=== PATIENT | female | born 1990 | race Caucasian/White ===

== ENCOUNTER → 2019-11-07 | Outpatient (CLI) | payer SELFPAY ==
[2019-11-12 15:25] LABS: HPV APTIMA, High Risk Negative (Negative); HPV Reflexed? YES, CHARGE PATIENT
== END | disposition home or self-care (01) ==
LOC: LABSPEC 14:15
PROVIDERS: Visit Provider Obstetrics & Gynecology
DX: Z12.4 Encounter for screening for malignant neoplasm of cervix (principal)
CPT/HCPCS: 87624; 88175; G0145

== ENCOUNTER → 2019-12-07 11:41 | Outpatient (CLI) | payer SELFPAY ==
--- NOTE | 2019-12-07 12:10 | RAD_ITS ---
STUDY: HYSTEROSALPINGOGRAM. REASON FOR EXAM: Female, 28 years old. Infertility FLUOROSCOPY TIME (if supplied): ( 34 seconds ) minutes/seconds TECHNIQUE: A hysterosalpingogram was performed by the welder fitter helper. Imaging was submitted. COMPARISON: None. FINDINGS: The uterus is unremarkable. Both fallopian tubes are patent with free spill. RAD/Salpingogram IMPRESSION: Both fallopian tubes are patent with free spill. Electronically Signed: Montez Fritz, at 13:22 EST , Service support ,
== END ==
PROVIDERS: Referring Provider Obstetrics & Gynecology; Visit Provider Obstetrics & Gynecology
DX: N97.9 Female infertility, unspecified (principal)
CPT/HCPCS: 58340; 74740; Q9967

== ENCOUNTER → 2019-12-25 09:45 | Outpatient (CLI) | payer SELFPAY ==
[2019-12-25 10:36] LABS: Bedside Glucose 88 mg/dL (70-110)
[2019-12-25 11:29] LABS: Glucose 75GTT - Fasting 92 mg/dL (70-99)
[2019-12-25 11:31] LABS: Follicle Stimulating Hormone 1.1 mIU/mL; Prolactin 18.3 ng/mL
[2019-12-25 11:48] LABS: Glucose 75GTT - 30 minutes 106 mg/dL (100-160)
[2019-12-25 12:02] LABS: Insulin 75GTT - 30 MIN 77.4 mU/L (Not Estab.)
[2019-12-25 13:26] LABS: Glucose 75GTT - 120 minutes 103 mg/dL (70-140)
[2019-12-25 13:27] LABS: Glucose 75GTT - 60 minutes 100 mg/dL (100-160)
[2019-12-25 13:37] LABS: Insulin 75GTT - 60 min 107.8 mU/L (Not Estab)
[2019-12-25 13:37] LABS: Insulin 75GTT - 120 min 69.1 mU/L (Not Estab.)
[2019-12-29 20:07] LABS: DHEA Sulfate 249.7 ug/dL (84.8-378.0)
[2019-12-31 11:48] LABS: Anti-Mullerian Hormone,Serum 3.92 ng/mL (.); Sex Hormone-binding Globulin 54.4 nmol/L (24.6-122.0)
== END ==
PROVIDERS: PCP Obstetrics & Gynecology; Referring Provider Obstetrics & Gynecology; Visit Provider Obstetrics & Gynecology
DX: N97.9 Female infertility, unspecified (principal)
CPT/HCPCS: 36415; 82627; 82951; 82952; 82962; 83001; 83516; 83525; 84146; 84270; 84403; 82626

== ENCOUNTER → 2020-01-01 10:39 | Outpatient (CLI) | payer SELFPAY ==
[2020-01-01 14:17] LABS: Vitamin D,25 Hydroxy 22.2 ng/mL (29.95-100.01)
[2020-01-01 14:18] LABS: Follicle Stimulating Hormone 5.9 mIU/mL; Prolactin 10.2 ng/mL
[2020-01-02 12:27] LABS: Sex Hormone-binding Globulin 49.2 nmol/L (24.6-122.0)
== END ==
PROVIDERS: PCP Obstetrics & Gynecology; Referring Provider Obstetrics & Gynecology; Visit Provider Obstetrics & Gynecology
DX: E28.9 Ovarian dysfunction, unspecified (principal); N97.9 Female infertility, unspecified
CPT/HCPCS: 82306; 82627; 83001; 84146; 84270; 84403; 82626

== ENCOUNTER → 2020-05-13 10:26 | Outpatient (CLI) | payer SELFPAY ==
[2020-05-13 12:51] LABS: Progesterone Level 3.79 ng/mL (See Comment)
== END ==
PROVIDERS: PCP Obstetrics & Gynecology; Visit Provider Obstetrics & Gynecology
DX: N97.0 Female infertility associated with anovulation (principal)
CPT/HCPCS: 36415; 84144

== ENCOUNTER → 2020-06-10 09:38 | Outpatient (CLI) | payer SELFPAY ==
[2020-06-10 10:36] LABS: Progesterone Level 48.11 ng/mL (See Comment)
== END ==
PROVIDERS: PCP Obstetrics & Gynecology; Visit Provider Obstetrics & Gynecology
DX: N97.0 Female infertility associated with anovulation (principal)
CPT/HCPCS: 36415; 84144

== ENCOUNTER → 2020-07-11 10:10 | Outpatient (CLI) | payer SELFPAY ==
[2020-07-11 11:21] LABS: Progesterone Level 46.06 ng/mL (See Comment)
== END ==
PROVIDERS: PCP Obstetrics & Gynecology; Visit Provider Obstetrics & Gynecology
DX: N97.0 Female infertility associated with anovulation (principal)
CPT/HCPCS: 36415; 84144

== ENCOUNTER → 2020-08-11 10:19 | Outpatient (CLI) | payer SELFPAY ==
[2020-08-11 16:17] LABS: Progesterone Level 54.31 ng/mL (See Comment)
== END ==
PROVIDERS: PCP Obstetrics & Gynecology; Visit Provider Obstetrics & Gynecology
DX: N97.0 Female infertility associated with anovulation (principal)
CPT/HCPCS: 36415; 84144

== ENCOUNTER → 2020-09-10 09:54 | Outpatient (CLI) | payer SELFPAY | PROVIDERS: PCP Obstetrics & Gynecology; Visit Provider Obstetrics & Gynecology | DX: N97.0 Female infertility associated with anovulation (principal) | CPT/HCPCS: 36415; 84144 ==

== ENCOUNTER → 2020-10-09 08:48 | Outpatient (CLI) | payer SELFPAY ==
[2020-10-09 10:58] LABS: Progesterone Level 52.61 ng/mL (See Comment)
== END ==
PROVIDERS: PCP Obstetrics & Gynecology; Visit Provider Obstetrics & Gynecology
DX: N97.0 Female infertility associated with anovulation (principal)
CPT/HCPCS: 36415; 84144

== ENCOUNTER → 2020-11-06 10:43 | Outpatient (CLI) | payer SELFPAY | PROVIDERS: PCP Obstetrics & Gynecology; Visit Provider Obstetrics & Gynecology | DX: N97.0 Female infertility associated with anovulation (principal) | CPT/HCPCS: 36415; 84144 ==

== ENCOUNTER → 2020-12-03 12:10 | Outpatient (CLI) | payer SELFPAY ==
[2020-12-03 14:23] LABS: Free T3 2.5 pg/mL (2.18-3.98); T4 Free Direct 1.22 ng/dL (0.76-1.46); Thyroid Stim Hormone (TSH) 1.36 uIU/mL (0.358-3.74)
== END ==
PROVIDERS: PCP Obstetrics & Gynecology; Visit Provider Obstetrics & Gynecology
DX: E03.9 Hypothyroidism, unspecified (principal)
CPT/HCPCS: 36415; 84439; 84443; 84481

== ENCOUNTER → 2020-12-05 09:44 | Outpatient (CLI) | payer SELFPAY ==
[2020-12-05 12:27] LABS: Progesterone Level 42.79 ng/mL (See Comment)
== END ==
PROVIDERS: PCP Obstetrics & Gynecology; Visit Provider Obstetrics & Gynecology
DX: N97.0 Female infertility associated with anovulation (principal)
CPT/HCPCS: 36415; 84144

== ENCOUNTER → 2021-01-05 11:11 | Outpatient (CLI) | payer SELFPAY ==
[2021-01-05 12:09] LABS: Progesterone Level 14.76 ng/mL (See Comment)
== END ==
PROVIDERS: PCP Obstetrics & Gynecology; Visit Provider Obstetrics & Gynecology
DX: Z31.81 Encounter for male factor infertility in female patient (principal); Z31.41 Encounter for fertility testing
CPT/HCPCS: 36415; 84144

== ENCOUNTER → 2021-04-17 09:05 | Outpatient (CLI) | payer SELFPAY ==
[2021-04-17 10:27] LABS: Glucose 75GTT - 30 minutes 138 mg/dL (100-160)
[2021-04-17 10:37] LABS: Glucose 75GTT - Fasting 100 mg/dL (70-99)
[2021-04-17 11:47] LABS: Glucose 75GTT - 60 minutes 119 mg/dL (100-160)
[2021-04-17 12:42] LABS: Glucose 75GTT - 120 minutes 82 mg/dL (70-140)
== END ==
PROVIDERS: Referring Provider Obstetrics & Gynecology Reproductive Endocrinology; Visit Provider Obstetrics & Gynecology Reproductive Endocrinology
DX: E16.8 Other specified disorders of pancreatic internal secretion (principal)
CPT/HCPCS: 36415; 82951; 82952; 83525

== ENCOUNTER 2022-02-05 11:37 | Outpatient (CLI) | payer SELFPAY ==
[2022-02-05 12:23] LABS: Absolute Lymphocyte Count 1.88 X10^3/uL (0.83-4.51); Absolute Neutrophil Count 6.9 X10^3/uL (2.0-7.7); Basophil# 0.06 X10^3/uL; Basophil% 0.6 % (0-1); Eosinophil# 0.04 X10^3/uL; Eosinophils% 0.4 % (0-5); Hematocrit 37.4 % (37-47); Lymphocyte # 1.88 X10^3/ul (0.83-4.51); Lymphocyte % 19.3 % (19-41); Mean Corp Hgb Conc 34.8 g/dL (32-36); Mean Corpuscular Hgb 29.5 pg (27.0-32.0); Mean Corpuscular Volume 84.8 fL (81-99); Mean Platelet Vol. 9.4 fl (6.2-12.0); Monocyte# 0.83 X10^3/uL; Monocyte% 8.5 % (0-10); NRBC Flagged by Analyzer 0 % (0-5); Neutrophil # 6.91 X10^3/uL (2.7-7.7); Neutrophil % 70.8 % (47-70); Platelet Count 421 K/mm3 (150-450); RBC Distribution Width CV 12.2 % (11.6-14.6); RBC Distribution Width SD 37.3 fl (35.1-43.9); Red Blood Count 4.41 M/mm3 (4.2-5.4); White Blood Count 9.8 K/mm3 (4.4-11.0)
[2022-02-05 12:26] LABS: Color, Urine Yellow (Yellow); Glucose, Dipstick Normal (Normal); Ketone-Dipstick Negative (Negative); Leukocyte Esterase-Dipstick 25 /ul (Negative); Nitrite-Dipstick Negative (Negative); Occult Blood-Urine Negative /ul (Negative); Protein-Dipstick Negative (Negative); Specific Gravity, Urine 1.005 (1.002-1.030); Urine Bilirubin Dipstick Negative (Negative); Urine Clarity Clear (Clear); Urine Urobilinogen Normal (Normal)
[2022-02-05 13:09] LABS: Thyroid Stim Hormone (TSH) 1.13 uIU/mL (0.358-3.74)
[2022-02-05 13:36] LABS: HIV - WCH Non-Reactive (Nonreactive); Hepatitis B Surface Antigen Non-Reactive (Nonreactive); Hepatitis C Antibody Non-Reactive (Nonreactive); Rubella IgG Reactive (Nonreactive); Syphilis Antibodies Non-reactive
[2022-02-08 05:07] LABS: Chlamydia By Nucleic Acid AMP Negative (Negative)
[2022-02-08 13:31] LABS: Gonococcus By Nucleic Acid AMP Negative (Negative)
== END 2022-02-05 23:59 | disposition home or self-care (01) ==
LOC: WOBLAB 11:38
PROVIDERS: Visit Provider Obstetrics & Gynecology
DX: Z34.81 Encounter for supervision of other normal pregnancy, first trimester (principal); Z11.3 Encounter for screening for infections with a predominantly sexual mode of transmission
CPT/HCPCS: 36415; 81002; 84443; 85025; 86703; 86762; 86780; 86803; 87086; 87088; 87340; 87491; 87591

== ENCOUNTER 2022-06-17 10:31 | Outpatient (CLI) | payer SELFPAY ==
[2022-06-17 11:27] LABS: Hematocrit 34.6 % (37-47); Hemoglobin 12.3 g/dL (12.0-15.0); Mean Corp Hgb Conc 35.5 g/dL (32-36); Mean Corpuscular Hgb 30.8 pg (27.0-32.0); Mean Corpuscular Volume 86.5 fL (81-99); Mean Platelet Vol. 9.8 fl (6.2-12.0); Platelet Count 337 K/mm3 (150-450); RBC Distribution Width CV 13.2 % (11.6-14.6); RBC Distribution Width SD 41.5 fl (35.1-43.9); White Blood Count 10.5 K/mm3 (4.4-11.0)
[2022-06-17 11:32] LABS: Glucose Challenge Gest 1H 50g 108 mg/dL (70-140)
== END 2022-06-17 23:59 | disposition home or self-care (01) ==
LOC: WOBLAB 10:35
PROVIDERS: Visit Provider Obstetrics & Gynecology
DX: Z34.83 Encounter for supervision of other normal pregnancy, third trimester (principal)
CPT/HCPCS: 36415; 82950; 85027; 86850

== ENCOUNTER → 2022-08-10 | Outpatient (CLI) | payer SELFPAY | END | disposition home or self-care (01) | LOC: LABSPEC 11:21 | PROVIDERS: Visit Provider Obstetrics & Gynecology | DX: Z36.85 Encounter for antenatal screening for Streptococcus B (principal) | CPT/HCPCS: 87077; 87081; 87186 ==

== ENCOUNTER 2022-09-16 06:50 | Inpatient (IN) | payer SELFPAY ==
[2022-09-16] VITALS (24 sets, daily range): BP systolic 105–150; BP diastolic 54–86; PULSE 70–107; TEMP 36.3–37.4; O2SAT 92–99; BMI 36.5
--- NOTE | 2022-09-16 07:24 | PCM.HP.BLA ---
History and Physical Date of Admission: 09/16/22 Chief complaint: Induction of labor at term History present illness: 31-year-old at 41 weeks and 2 days with JUAN 09/07/2022 arrives for induction of labor at term. Denies headache, visual changes, chest pain, shortness of breath, nausea vomit, right upper quadrant pain. Patient states good movement Obstetric history: G1: Current Past medical history: None Past surgical history: None Medications: None Allergies: Penicillin Social history: Denies smoking, alcohol use, drug use Family history: Denies history DVT or PE Review of systems: Besides above pertinent positives a full review of systems was performed and found to be negative Physical exam: Vitals: Blood pressure 110/86 pulse 107 General: Normal-appearing no acute distress HEENT: Normocephalic/atraumatic no cervical lymphadenopathy Cardiac/respiratory: No accessory muscles, nonlabored breathing Abdomen: Soft, nontender, gravid Extremities: No peripheral edema normal peripheral pulses Psych: Normal affect, demeanor nonpressured speech Labs: Pending Assessment plan: 31-year-old G1, P0 at 41 weeks and 2 days for induction of labor at term Admit labor and delivery CEFM GBS positive for clindamycin Cytotec induction Routine orders Anesthesia to see
[2022-09-16] MEDS: miSOPROStol 25 MCG TABLET VAGINAL ×3 (08:04→16:33)
[2022-09-16] MEDS: Lactated Ringers 1,000 ML 50 ML IV (08:10)
[2022-09-16 08:49] LABS: Absolute Lymphocyte Count 1.94 X10^3/uL (0.83-4.51); Absolute Neutrophil Count 9.5 X10^3/uL (2.0-7.7); Basophil# 0.06 X10^3/uL; Basophil% 0.5 % (0-1); Eosinophil# 0.07 X10^3/uL; Eosinophils% 0.6 % (0-5); Hematocrit 36.5 % (37-47); Hemoglobin 13.3 g/dL (12.0-15.0); Lymphocyte # 1.94 X10^3/ul (0.83-4.51); Lymphocyte % 15.4 % (19-41); Mean Corp Hgb Conc 36.4 g/dL (32-36); Mean Corpuscular Hgb 31.1 pg (27.0-32.0); Mean Corpuscular Volume 85.3 fL (81-99); Mean Platelet Vol. 10.7 fl (6.2-12.0); Monocyte# 0.96 X10^3/uL; Monocyte% 7.6 % (0-10); NRBC Flagged by Analyzer 0 % (0-5); Neutrophil # 9.45 X10^3/uL (2.7-7.7); Platelet Count 298 K/mm3 (150-450); RBC Distribution Width CV 13.3 % (11.6-14.6); RBC Distribution Width SD 41.6 fl (35.1-43.9); Red Blood Count 4.28 M/mm3 (4.2-5.4); White Blood Count 12.6 K/mm3 (4.4-11.0)
[2022-09-16] MEDS: Clindamycin 900 MG/50 ML BAG 75 MG IV ×2 (09:41→17:48)
[2022-09-16] MEDS: LACTATED RINGERS 500 ML 999 ML IV (18:25)
[2022-09-16] MEDS: Oxytocin 10 UNITS/ML Vial IM (21:43)
--- NOTE | 2022-09-16 22:07 | OP.PCM_ITS ---
Vaginal Delivery Findings Description of Procedure: Normal spontaneous vaginal delivery of a viable female infant, vertex HANNA. Head and shoulders delivered with ease. Cord cut and clamped. Baby handed off to patient. Placenta delivered via cord traction and fundal massage. Second- degree midline perineal laceration noted and repaired in typical fashion. 20 cc of 1% lidocaine used. 10 units of IM Pitocin given. EBL 300 cc Apgars 8/9
[2022-09-17] VITALS (7 sets, daily range): BP systolic 102–135; BP diastolic 62–72; PULSE 80–101; RESP 16–18; TEMP 36.3–36.9; O2SAT 96
[2022-09-17] MEDS: Acetaminophen 500 MG Tablet 1000 MG PO ×2 (00:32→10:15)
--- NOTE | 2022-09-17 03:11 | NURSING ---
late entry due to pt care and unit acuity: 1000mL bag LR hung at 2002, infusion complete at 213
--- NOTE | 2022-09-17 07:22 | PN.OBGYN_ITS ---
Subjective Subjective day 1. Feeling well. Lochia minimal. Working on breast-feeding. Objective Data Objective Data Vital Signs: Vital Signs Temp Pulse Resp BP Pulse Ox O2 Del Method 97.5 F L 95 18 102/68 98 Room Air 09/17/22 04:01 09/17/22 04:01 09/17/22 04:01 09/17/22 04:01 09/16/22 22:06 09/17/22 04:01 Oxygen Delivery Method Room Air Weight: 84.822 kg Body Mass Index (BMI) 36.5 Intake & Output: Intake and Output for Last 24 Hours 09/15/22 09/16/22 09/17/22 23:59 23:59 23:59 Intake Total 800 / 800 Output Total 200 / 200 800 / 800 Balance 600 / 600 -800 / -800 Lab / Micro Data Result Diagrams: 09/16/22 08:20 Labs: Laboratory Results - last 24 hr 09/16/22 08:20: WBC 12.6 H, RBC 4.28, Hgb 13.3, Hct 36.5 L, MCV 85.3, MCH 31.1, MCHC 36.4 H, RDW Std Deviation 41.6, RDW Coeff of Roque 13.3, Plt Count 298, MPV 10.7, Immature Gran % (Auto) 0.900, Neut % (Auto) 75.0 H, Lymph % (Auto) 15.4 L, [place] % (Auto) 7.6, Eos % (Auto) 0.6, Baso % (Auto) 0.5, Absolute Neuts (auto) 9.5 H, Absolute Lymphs (auto) 1.94, Nucleated RBC % 0 09/16/22 08:20: Blood Type A NEGATIVE, Antibody Screen INSIDE SALES ASSISTANT 09/16/22 08:20: Blood Type Cancelled, ABO/Rh Cancelled, A1 Subgroup Cancelled, A1 Antigen Typing Cancelled, Rho(D) Tech Interpret Cancelled, Antibody Screen NEGATIVE Physical Exam Const alert, oriented x3 and no apparent distress HEENT normocephalic Head and Scalp: atraumatic Neck full ROM Resp normal respiratory effort Cardio regular rate GI normal to inspection, nondistended, normoactive bowel sounds GI Narrative: Uterus 2 cm below umbilicus Back/Spine normal ROM Extremity normal to inspection Extremity Narrative: Minimal pedal edema Neuro no focal motor deficits and no sensory deficits noted Psych mental status grossly normal and affect normal Assessment & Plan (1) Vaginal delivery: PLAN: day 1 status post . Breast-feeding. Home tomorrow.
[2022-09-18 01:44] VITALS: BP 128/66; PULSE 95; RESP 18; TEMP 36.6; O2SAT 95
--- NOTE | 2022-09-18 07:36 | PCM.DC.BLA ---
Discharge Summary Date of Admission: 09/16/22 Date of Discharge: 09/18/22 Summary: Patient arrived on 09/16/2022 for induction of labor at 41 weeks. Subsequently delivered vaginally on 09/16/2022. Routine recovery. Discharge home on 09/18/2022 Meaningful Use Info Meaningful Use Diagnoses (Choose all that apply): None applicable Discharge Plan Admission Admit Date/Time: 09/16/22 06:50 Primary Reason for Your Visit: Induction of labor Attending Provider: Rohan Mcdonald Primary Care Provider: Care Physician,Marlen Primary Instructions Additional Instructions / Restrictions: Regular diet. Weightbearing as tolerated. Okay to shower. No intercourse for 4 to 6 weeks. Call if chest pain, shortness of breath, fevers or chills. Follow-up 4 to 6 weeks Discharge Orders/Prescriptions Prescriptions: No Action 1 mg Tablet 1 tab PO DAILY Referrals / Follow Up: Care Physician,No Primary [Primary Care Provider] - Disposition Disposition (needs filled in before D/C Order can be placed): Home, Self Care
--- NOTE | 2022-09-18 07:37 | PCM.PN.OB ---
Subjective Subjective No overnight complaints Objective Data Objective Data Vital Signs: Vital Signs Temp Pulse Resp BP Pulse Ox O2 Del Method 97.8 F 95 18 128/66 H 95 Room Air 09/18/22 01:44 09/18/22 01:44 09/18/22 01:44 09/18/22 01:44 09/18/22 01:44 09/18/22 01:44 Oxygen Delivery Method Room Air Weight: 187 lb Body Mass Index (BMI) 36.5 Intake & Output: Intake and Output for Last 24 Hours 09/16/22 09/17/22 09/18/22 23:59 23:59 23:59 Intake Total 800 / 800 Output Total 200 / 200 800 / 800 Balance 600 / 600 -800 / -800 Lab / Micro Data Result Diagrams: 09/16/22 08:20 Physical Exam Const alert, oriented x3, no apparent distress, average body habitus, healthy appearing and well nourished HEENT normocephalic and moist oral mucous membranes Eyes PERRL Neck full ROM Resp normal respiratory effort, no retractions and no use of accessory muscles Extremity normal to inspection, full ROM and no clubbing, cyanosis or edema Neuro moves all extremities and no focal motor deficits Psych mental status grossly normal, affect normal, speech normal and activity/motor behavior normal Assessment & Plan (1) Vaginal delivery: PLAN: day 2. Breast-feeding. Pain well controlled. Okay to discharge home today
[2022-09-18 08:58] VITALS: BP 114/73; PULSE 93; RESP 18; TEMP 36.6; O2SAT 99
[2022-09-18 14:00] VITALS: BP 116/71; PULSE 86; RESP 16; TEMP 36.6; O2SAT 100
== END 2022-09-18 17:00 | disposition home or self-care (01) | DRG 807 ==
PROVIDERS: Admitting Provider Obstetrics & Gynecology; Visit Provider Obstetrics & Gynecology
DX: O48.0 Post-term pregnancy (principal); Z37.0 Single live birth; O70.1 Second degree perineal laceration during delivery; O99.824 Streptococcus B carrier state complicating childbirth; Z3A.41 41 weeks gestation of pregnancy
CPT/HCPCS: 59025; 59050; 85025; 86850; 86900; 86901; 99218; J7120; G0378

== ENCOUNTER → 2024-10-03 | Outpatient (CLI) | payer OTHER, SELFPAY ==
[2024-10-03 12:21] LABS: Absolute Lymphocyte Count 1.93 X10^3/uL (0.83-4.51); Basophil# 0.08 X10^3/uL; Basophil% 0.7 % (0-1); Eosinophil# 0.11 X10^3/uL; Eosinophils% 0.9 % (0-5); Hematocrit 38.8 % (37-47); Hemoglobin 12.9 g/dL (12.0-15.0); Lymphocyte # 1.93 X10^3/ul (0.83-4.51); Lymphocyte % 16.3 % (19-41); Mean Corp Hgb Conc 33.2 g/dL (32-36); Mean Corpuscular Hgb 28.5 pg (27.0-32.0); Mean Corpuscular Volume 85.7 fL (81-99); Mean Platelet Vol. 9.2 fl (6.2-12.0); Monocyte# 0.71 X10^3/uL; NRBC Flagged by Analyzer 0 % (0-5); Neutrophil # 8.97 X10^3/uL (2.7-7.7); Neutrophil % 75.7 % (47-70); Platelet Count 442 K/mm3 (150-450); RBC Distribution Width CV 12.5 % (11.6-14.6); RBC Distribution Width SD 38.8 fl (35.1-43.9); Red Blood Count 4.53 M/mm3 (4.2-5.4); White Blood Count 11.9 K/mm3 (4.4-11.0)
[2024-10-03 13:45] LABS: HIV - WCH Non-Reactive (Nonreactive); Hepatitis B Surface Antigen Non-Reactive (Nonreactive); Hepatitis C Antibody Non-Reactive (Nonreactive); Rubella IgG Reactive (Nonreactive); Syphilis Antibodies Non-reactive
[2024-10-06 07:08] LABS: Chlamydia By Nucleic Acid AMP Negative (Negative); Gonococcus By Nucleic Acid AMP Negative (Negative)
== END | disposition home or self-care (01) ==
LOC: BWCLAB 11:57
PROVIDERS: Referring Provider Advanced Practice Midwife; Visit Provider Advanced Practice Midwife
DX: O99.210 Obesity complicating pregnancy, unspecified trimester (principal)
CPT/HCPCS: 36415; 83036; 85025; 86703; 86762; 86780; 86803; 86850; 86900; 86901; 87077; 87086; 87088; 87186; 87340; 87491; 87591

== ENCOUNTER 2024-11-29 10:22 | Outpatient (CLI) | payer OTHER, SELFPAY | END 2024-11-29 23:59 | disposition home or self-care (01) | LOC: BWCLAB 10:23 | PROVIDERS: Referring Provider Nurse Practitioner Women's Health; Visit Provider Nurse Practitioner Women's Health | DX: Z34.90 Encounter for supervision of normal pregnancy, unspecified, unspecified trimester (principal) | CPT/HCPCS: 36415; 86850; 86900; 86901 ==

== ENCOUNTER → 2025-02-21 | Outpatient (CLI) | payer OTHER, SELFPAY ==
[2025-02-21 17:36] LABS: Absolute Lymphocyte Count 1.93 X10^3/uL (0.83-4.51); Absolute Neutrophil Count 9.3 X10^3/uL (2.0-7.7); Basophil# 0.05 X10^3/uL; Basophil% 0.4 % (0-1); Eosinophils% 0.8 % (0-5); Hematocrit 34.1 % (37-47); Hemoglobin 11.6 g/dL (12.0-15.0); Lymphocyte # 1.93 X10^3/ul (0.83-4.51); Lymphocyte % 15.8 % (19-41); Mean Corpuscular Hgb 29.1 pg (27.0-32.0); Mean Corpuscular Volume 85.7 fL (81-99); Mean Platelet Vol. 9.6 fl (6.2-12.0); Monocyte# 0.72 X10^3/uL; Monocyte% 5.9 % (0-10); NRBC Flagged by Analyzer 0 % (0-5); Neutrophil # 9.27 X10^3/uL (2.7-7.7); Neutrophil % 76.2 % (47-70); Platelet Count 365 K/mm3 (150-450); RBC Distribution Width CV 13.5 % (11.6-14.6); RBC Distribution Width SD 41.8 fl (35.1-43.9); Red Blood Count 3.98 M/mm3 (4.2-5.4); White Blood Count 12.2 K/mm3 (4.4-11.0)
[2025-02-21 18:14] LABS: Glucose Challenge Gest 1H 50g 124 mg/dL (70-140); HIV Nonreactive (Nonreactive); Syphilis Antibodies Nonreactive (Nonreactive)
== END | disposition home or self-care (01) ==
LOC: BWCLAB 14:42
PROVIDERS: Obstetrics & Gynecology; Referring Provider Advanced Practice Midwife; Visit Provider Advanced Practice Midwife
DX: O09.92 Supervision of high risk pregnancy, unspecified, second trimester (principal); Z13.1 Encounter for screening for diabetes mellitus; Z3A.00 Weeks of gestation of pregnancy not specified
CPT/HCPCS: 36415; 82950; 85025; 86703; 86780; 86850; 86900; 86901

== ENCOUNTER 2025-03-29 11:57 | Emergency (ER) | payer OTHER, SELFPAY ==
[2025-03-29 11:58] VITALS: BP 98/64; PULSE 94; RESP 19; TEMP 36.6; O2SAT 99
[2025-03-29 12:00] VITALS: BMI 36.7
--- NOTE | 2025-03-29 12:09 | RAD_ITS ---
PROCEDURE: ANKLE MIN 3 VIEWS 03/29/2025 REASON FOR EXAM: PAIN. Injury. TECHNIQUE: 3 views of the left ankle COMPARISON: None. RAD/Ankle min 3 Views IMPRESSION: On the lateral view, a moderate inferior calcaneal spur is seen. Normal contour of the Achilles tendon is noted. No ankle joint effusion is identified. Satisfactory osseous alignment is seen throughout. No acute fracture or dislocation is seen. If clinical concern persists, short-term follow-up imaging may be obtained to r ule out a currently occult fracture. Reading Location: [place] [id number]
--- NOTE | 2025-03-29 12:57 | EDS_ITS ---
HPI <LEANA Nicholas - Last Filed: 03/29/25 13:48> History of Present Illness Chief Complaint: Lower Extremity Injury Narrative Narrative: Patient presenting today with pain to her left ankle and foot following an injury this afternoon. She was going down the stairs when she missed stepped and twisted her left ankle. She is currently 7 months , she is G2, P1, she denies any injury to her abdomen, abdominal pain, or vaginal bleeding. She is having a difficult time bearing weight onto her LLE due to the pain. She has not yet taken anything for pain. PFSH <LEANA Nicholas - Last Filed: 03/29/25 13:48> PFSH Home Medications ?Medication ?Instructions ?Recorded ?Last Taken ?Type dajizgyh-ldy-Ra-FA 1 mg 1 tab PO DAILY pregna ncy 09/16/22 Unknown History tablet cholecalciferol (vitamin D3) 25 25 mcg PO QDAY 4 Unknown History mcg (1,000 unit) capsule Allergy/AdvReac Type Severity Reaction Status Date / Time Penicillins Allergy Vomiting Verified 03/29/25 11:57 Family History Mother Endometriosis Lupus Social History adopted: No household members: spouse and children number of children: 1 current occupation: [employer] current occupational exposures/hazards: No pets and animals: Yes history of recent travel: No sexually active: Yes Smoking Status: Never smoker alcohol intake: never substance use type: does not use well-balanced diet: daily or most days caffeine: Yes Type: carbonated beverages Number of servings: 1 eating out: rarely or never during the past year weight has: increased > 10 lbs what type of physical activity do you participate in: walking frequency: 1-2 times per week duration: < 15 minutes/day seatbelt use: always do you feel safe at home: Yes additional social history: : [employer] ROS <LEANA Nicholas - Last Filed: 03/29/25 13:48> ROS ED Gastrointestinal Gastrointestinal: Denies abdominal pain Musculoskeletal Musculoskeletal: Reports arthralgias Integumentary Denies Abrasions Neurologic Neurologic: Denies paresthesias EXAM <LEANA Nicholas - Last Filed: 03/29/25 13:48> Physical Exam Const Vital Signs: 03/29/25 11:58 Temperature 98 F Temperature Source Oral Pulse Rate 94 Respiratory Rate 19 H Blood Pressure 98/64 Blood Pressure Mean 75 Pulse Ox 99 Oxygen Delivery Method Room Air Positive well nourished, well developed and no apparent distress General Appearance ED: well developed HEENT Reports normocephalic and head/scalp atraumatic Mouth ED: Yes moist mucous membranes normal Eyes PERRL and EOMs intact bilaterally Neck full ROM and supple Chest Wall inspection of chest normal Resp normal respiratory effort and clear to auscultation bilaterally Cardio regular rate and regular rhythm Back/Spine normal ROM and normal to inspection Extremity normal to inspection and full ROM Extremity Narrative: pain to palpation to the left lateral malleolus, pain to the ATFL, minimal pain across the dorsal aspect of the midfoot. No proximal fibular tenderness. No tenderness to the head or base of the fifth metatarsal. Left DP pulse 2+, good cap refill, sensation intact. No bruising, she has mild swelling to the left ankle. Neuro moves all extremities, no focal motor deficits and no sensory deficits noted Sensorium / Orientation: awake and alert Psych mental status grossly normal and thought process normal Skin no rashes or lesions noted and no wounds <Dr. Hector Abrams, - Last Filed: 03/29/25 13:23> Physical Exam Const Vital Signs: 03/29/25 11:58 Temperature 98 F Temperature Source Oral Pulse Rate 94 Respiratory Rate 19 H Blood Pressure 98/64 Blood Pressure Mean 75 Pulse Ox 99 Oxygen Delivery Method Room Air MDM <LEANA Nicholas - Last Filed: 03/29/25 13:48> [facility] Narrative Medical decision making narrative: Patient presenting today with pain to her left ankle after tripping down a few steps this afternoon. No other injury occurred. She is currently 7 months but denies injuring her abdomen, she has no abdominal pain. No significant edema to the left ankle, she has pain to the left lateral malleolus, she reports mild pain across the dorsum of her foot, ankle x-ray obtained and is negative for fracture. Metatarsal view on x-ray does not show fracture. I did offer analgesia and she declined. Radiography X-Ray: Read by ED Physician Diagnostic Testing: Clinical Impression(s) from Imaging Studies Ankle X-Ray 03/29/25 12:09 IMPRESSION: On the lateral view, a moderate inferior calcaneal spur is seen. Normal contour of the Achilles tendon is noted. No ankle joint effusion is identified. Satisfactory osseous alignment is seen throughout. No acute fracture or dislocation is seen. If clinical concern persists, short-term follow-up imaging may be obtained to rule out a currently occult fracture. Reading Location: [facility] <Dr. Hector Abrams, DO - Last Filed: 03/29/25 13:23> MDM Radiography Diagnostic Testing: Clinical Impression(s) from Imaging Studies Ankle X-Ray 03/29/25 12:09 IMPRESSION: On the lateral view, a moderate inferior calcaneal spur is seen. Normal contour of the Achilles tendon is noted. No ankle joint effusion is identified. Satisfactory osseous alignment is seen throughout. No acute fracture or dislocation is seen. If clinical concern persists, short-term follow-up imaging may be obtained to rule out a currently occult fracture. [facility] Treatment and Re-Evaluation Narrative: I have personally performed a face to face assessment of the patient and have reviewed the MIA Note. I performed a substantive portion of the visit including all aspects of the following. My bonds findings include: History: Patient presents with left ankle injury that occurred approximately 2 hours prior to arrival. Patient states she missed a step and fell down 3-4 stairs. Patient denies any head injury or loss of consciousness. Patient denies any abdominal injury. Patient states her pain is aching. Patient states it is mainly over the lateral aspect of the left ankle. Patient denies any paresthesias or weakness. Patient denies any other injuries. Exam: Vital signs are stable. Patient is afebrile. Patient is in no acute distress. Musculoskeletal exam reveals tenderness over the lateral aspect of the left ankle. There is some mild edema. There is no ecchymosis. There is no tenderness over the proximal fibula. There is no tenderness over the fifth metatarsal. There is no tenderness over the medial malleolus. Range of motion was slightly limited in all motions of the left ankle secondary to pain. Pedal pulses are equal bilaterally. Sensation was intact to light touch in all digits. Capillary refill was less than 2 seconds in all digits. Strength is 5/5 bilaterally in the lower extremities. Medical Decision Making: Differential diagnose includes sprain, fracture, and contusion. X-rays of the left ankle will be obtained to assess for fracture. Patient was given an ice pack. X-rays of the left ankle were obtained. There are 3 views. On my independent interpretation, there is no acute fracture or dislocation noted. Radiologist also interpreted the x-rays and agrees. Patient was advised of her findings. Patient was given an Aircast and crutches. Patient was instructed to use ice to the area. Patient was instructed use Tylenol as needed for pain. Patient was instructed to return if worse in any way. Patient was instructed to follow-up with her primary care physician in 7 to 10 days. Patient understood and was agreeable with the plan. All questions were answered. Discharge Plan Triage Chief Complaint: Lower Extremity Injury ED Midlevel Provider: Noemi Santiago ED Provider: Hector Abrams Dx/Rx/DC Orders Clinical Impression: Ankle sprain Instructions: ED Ankle Sprain (Adult) Prescriptions: No Action cholecalciferol (vitamin D3) 25 mcg (1,000 unit) capsule 25 mcg PO QDAY 1 mg Tablet 1 tab PO DAILY Primary Care Provider: Care Physician,No Primary Referrals: Care Physician,No Primary [Primary Care Provider] - Activity Restrictions/Additional Instructions: Follow-up with your PCP in 1 week if no improvement of your pain. Ice the area and keep elevated if any swelling occurs, you can take Tylenol as needed for pain. Print Language: Thai Disposition Disposition: Home, Self Care Discharge Date/Time: 03/29/25 13:39
--- NOTE | 2025-03-29 13:25 | CM.ED ---
Social work Reason for referral: no PCP Referral source: case find This SW identified patient's lack of PCP and need for resources. This SW entered patient's room and introduced self and role at [facility]. Patient welcomed SW visit and patient's was bedside; patient confirmed patient's could remain bedside. Patient is 7 months and reports using [place] for care. Patient confirmed not having a PCP, but needing to get in with the place patient's goes to in [place]. Patient denied needing PCP resources and denied further needs at this time. Keshia Christiansen, BAGGAGE CHECKER, STEWARD/STEWARDESS SECOND
== END 2025-03-29 13:39 | disposition home or self-care (01) ==
PROVIDERS: Emergency Provider Emergency Medicine; Visit Provider Emergency Medicine
DX: O9A.213 Injury, poisoning and certain other consequences of external causes complicating pregnancy, third trimester (principal); S93.409A Sprain of unspecified ligament of unspecified ankle, initial encounter; X50.1XXA Overexertion from prolonged static or awkward postures, initial encounter; W22.8XXA Striking against or struck by other objects, initial encounter; Z3A.00 Weeks of gestation of pregnancy not specified
CPT/HCPCS: 73610; 99284

== ENCOUNTER → 2025-04-17 | Outpatient (CLI) | payer OTHER, SELFPAY ==
--- NOTE | 2025-04-17 15:23 | US_ITS ---
PROCEDURE: OB LIMITED WITH BIOMETRICS 04/17/2025 REASON FOR EXAM: GROWTH TECHNIQUE: High resolution obstetric ultrasound performed using a 2D transducer. Standard views obtained, including biometry, anatomy survey, and Doppler studies. COMPARISON: None. FINDINGS Number: 1 Position: Cephalic. Placental Position: Anterior. Placental Abnormalities: Nonvisualized. DIMENSIONS: Biparietal Diameter: 35 weeks 2 days/38% Head Circumference: 38 weeks 4 days/86% Abdominal Circumference: 37 weeks 1 day/46% Femur Length: 36 weeks 2 days/60% ESTIMATED WEIGHT: 2772 g +/-416 g ESTIMATED WEIGHT PERCENTILE (24+ weeks): 46% age by current ultrasound of 36 weeks and 2 days. JUAN by current ultrasound of 05/13/2025. age by LMP of 36 weeks and 0 days. JUAN by LMP of 05/15/2025. BIOPHYSICAL ASSESSMENT: Maximum vertical pocket of 7.3 cm. Amniotic Fluid Index: 19.4 cm (8-24 cm normal range) Cardiac Motion: 120 beats per minute. (Average) Trunk and Limb Motion: Present. MATERNAL ANATOMY: Adnexa: No visualized abnormalities. Cervical Length (if measured): Not visualized. US/OB Limited With Biometrics IMPRESSION: Single live intrauterine as above. Reading Location: [place] [id number]
== END | disposition home or self-care (01) ==
LOC: US 15:20
PROVIDERS: Referring Provider Obstetrics & Gynecology; Visit Provider Obstetrics & Gynecology
DX: O09.523 Supervision of elderly multigravida, third trimester (principal); Z3A.36 36 weeks gestation of pregnancy
CPT/HCPCS: 76816

== ENCOUNTER → 2025-04-18 | Outpatient (CLI) | payer OTHER, SELFPAY ==
[2025-04-18 10:53] LABS: Absolute Lymphocyte Count 1.99 X10^3/uL (0.83-4.51); Absolute Neutrophil Count 7.1 X10^3/uL (2.0-7.7); Basophil# 0.06 X10^3/uL; Basophil% 0.6 % (0-1); Eosinophil# 0.13 X10^3/uL; Eosinophils% 1.3 % (0-5); Hematocrit 36.6 % (37-47); Hemoglobin 12.6 g/dL (12.0-15.0); Lymphocyte # 1.99 X10^3/ul (0.83-4.51); Lymphocyte % 19.4 % (19-41); Mean Corp Hgb Conc 34.4 g/dL (32-36); Mean Corpuscular Volume 84.3 fL (81-99); Mean Platelet Vol. 9.5 fl (6.2-12.0); Monocyte% 7.8 % (0-10); NRBC Flagged by Analyzer 0 % (0-5); Neutrophil # 7.13 X10^3/uL (2.7-7.7); Neutrophil % 69.4 % (47-70); Platelet Count 315 K/mm3 (150-450); RBC Distribution Width CV 13.7 % (11.6-14.6); RBC Distribution Width SD 42.1 fl (35.1-43.9); Red Blood Count 4.34 M/mm3 (4.2-5.4); White Blood Count 10.3 K/mm3 (4.4-11.0)
[2025-04-18 11:12] LABS: ALB/GLOB Ratio 1.1 RATIO (0.9-2.4); AST(SGOT) 19 U/L (<=31); Alanine Aminotransfer ALT/SGPT 9 U/L (<=34); Albumin, Serum 3.3 g/dL (3.5-5.0); Alkaline Phosphatase 157 U/L (35-104); Anion Gap 11 (5-15); BUN 4 mg/dL (4-19); BUN/Creat Ratio 5.7 RATIO (10-20); Calcium,Total 9.5 mg/dL (7.6-11.0); Carbon Dioxide 20.9 mmol/L (21.0-32.0); Chloride 104 mmol/L (98-108); Creatinine, Serum 0.66 mg/dL (0.70-1.20); EST Glomerular Filtration Rate 117 (>60); Globulin 3.1 g/dL (2.2-4.2); Glucose 86 mg/dL (70-99); Potassium 3.9 mmol/L (3.3-5.1); Protein, Total 6.4 g/dL (5.9-8.4); Sodium Level 135 mmol/L (133-145); Total Bilirubin 0.23 mg/dL (0.00-1.30)
[2025-04-18 11:14] LABS: Protein, Urine (Random) < 6.0 mg/dL (0.0-12.0); Protein:Creat Ratio UNABLE TO CALCULATE mg/g CRE (0-200)
== END | disposition home or self-care (01) ==
PROVIDERS: Referring Provider Advanced Practice Midwife; Visit Provider Advanced Practice Midwife
DX: H53.19 Other subjective visual disturbances (principal)
CPT/HCPCS: 36415; 80053; 82570; 84156; 85025

== ENCOUNTER 2025-05-13 19:00 | Inpatient (IN) | payer OTHER, SELFPAY ==
[2025-05-13 19:35] VITALS: RESP 16; TEMP 36.5
[2025-05-13 19:39] VITALS: PULSE 107; O2SAT 98
[2025-05-13 19:40] VITALS: BP 122/77; PULSE 96
[2025-05-13 19:54] VITALS: BMI 38.0
[2025-05-13] MEDS: Lactated Ringers 1,000 ML 50 ML IV (20:00)
[2025-05-13 20:45] LABS: Absolute Lymphocyte Count 2.19 X10^3/uL (0.83-4.51); Absolute Neutrophil Count 7.4 X10^3/uL (2.0-7.7); Basophil# 0.05 X10^3/uL; Basophil% 0.5 % (0-1); Eosinophil# 0.09 X10^3/uL; Eosinophils% 0.8 % (0-5); Hematocrit 36.9 % (37-47); Hemoglobin 12.6 g/dL (12.0-15.0); Lymphocyte # 2.19 X10^3/ul (0.83-4.51); Lymphocyte % 20.4 % (19-41); Mean Corp Hgb Conc 34.1 g/dL (32-36); Mean Corpuscular Hgb 28.5 pg (27.0-32.0); Mean Corpuscular Volume 83.5 fL (81-99); Mean Platelet Vol. 10.5 fl (6.2-12.0); Monocyte# 0.86 X10^3/uL; NRBC Flagged by Analyzer 0 % (0-5); Neutrophil # 7.43 X10^3/uL (2.7-7.7); Neutrophil % 69.4 % (47-70); Platelet Count 339 K/mm3 (150-450); RBC Distribution Width CV 14.2 % (11.6-14.6); Red Blood Count 4.42 M/mm3 (4.2-5.4); White Blood Count 10.7 K/mm3 (4.4-11.0)
--- NOTE | 2025-05-13 21:09 | HP.PCM.OB_ITS ---
HPI - General General Date of Admission: 05/13/25 HPI Narrative KIRK CARVALHO, is a 34 F who presents for IOL secondary to AMA no vb lof irregular ctx Maternal Data Information JUAN Calculator Estimated Delivery Date Method Current WG Current Estimate 05/15/25 LMP (Uncertain) 39w 5d Other Estimates 05/13/25 Ultrasound #1 40w 0d PFSH PFSH Medical History (Updated 05/13/25 @ 21:[address] Ayaka Lozano MD) depression Home Medications ?Medication ?Instructions ?Recorded ?Last Taken ?Type jrnyhqmj-yhd-[id number]-FA 1 mg 1 tab PO DAILY pregna ncy 09/16/22 Unknown History tablet cholecalciferol (vitamin D3) 25 25 mcg PO QDAY supplem ent 09/21/24 Unknown History mcg (1,000 unit) capsule Allergy/AdvReac Type Severity Reaction Status Date / Time Penicillins Allergy Vomiting Verified 05/13/25 19:42 Family History Mother Endometriosis Lupus Social History adopted: No household members: spouse and children number of children: 1 current occupation: [employer] current occupational exposures/hazards: No pets and animals: Yes history of recent travel: No sexually active: Yes Smoking Status: Never smoker alcohol intake: never substance use type: does not use well-balanced diet: daily or most days caffeine: Yes Type: carbonated beverages Number of servings: 1 eating out: rarely or never during the past year weight has: increased > 10 lbs what type of physical activity do you participate in: walking frequency: 1-2 times per week duration: < 15 minutes/day seatbelt use: always do you feel safe at home: Yes additional social history: : [employer] - [employer] History 2 Elective abortions Hx Para 1 Spontaneous abortions Hx # Term Pregnancies 1 Ectopic pregnancies Hx # Pregnancies Multiple births # of living children 1 Past Pregnancies Del. Date Name GA/Weeks Outcome Route Bth Weight Infant Gen Labor Lgth Anesthesia Del Locatn Provider FOB 09/16/22 Tisha 41 live - full term 7lbs Female non e [facility] Rohan Mcdonald [place] Visit Details Expected Delivery Route/Plan Labor Preferences- CB/BF classes: [] labor support person: [] labor intervention preferences: [] pain management options preferred: [] cut cord/dad catch: [] :desires, but had a hard time with first. PP control planned: [] discussed possible routes of delivery and associated risks: [] special requests: [] Plans Covid status: [] Flu vaccine: given Tdap vaccine: [] Rhogam: given 11/29/24(spotting) LARC form signed: [] Problem list reviewed and updated with the most current plan of care details and appropriate orders placed. Relevant counseling for the gestational age provided. Continue routine care and follow up unless otherwise noted in visit notes/problem list details OB Flowsheet Initial Weight: 176 lb Date -?-?-?-?-?-?-?-?-?-?-?-?- EGA Weight BP Urine Prot -?-?-?-?-?-?-?-?-?-?-?-?- Glucose FHR FuHt Pres Dilation -?-?-?-?-?-?-?-?-?-?-?-?- Effaced St Visit Note 10/03/24 -?-?-?-?-?-?-?-?-?-?-?-?- 8w 0d 176 lb 8 oz (+8 oz) 133/78 -?-?-?-?-?-?-?-?-?-?-?-?- 180 -?-?-?-?-?-?--?-?-?-?-?-?- KW- CRL cons wit h dates. Declines NIPT. 10/31/24 -?-?-?-?-?-?-?-?-?-?-?-?- 12w 0d 178 lb 6 oz (+2 lb 6 oz) 112/76 Negative -?-?-?-?-?-?-?-?-?-?-?-?- Negative 165 -?-?-?-?-?-?-?-?-?-?-?-?- JV- no lof, vagi nal bleeding, or cramping. anatomy scan ordered 11/29/24 -?-?-?-?-?-?-?-?-?-?-?-?- 16w 1d 177 lb 8 oz (+1 lb 8 oz) 124/78 Negative -?-?-?-?-?-?-?-?-?-?-?-?- Negative 148 -?-?-?-?--?-?-?-?-?-?-?-?- MH-Had episode l ight spotting just over a week ago. T&S plus rhogam today. Feeling flutters. Flu vaccine given. 12/27/24 -?-?-?-?-?-?-?-?-?-?-?-?- 20w 1d 178 lb 8 oz (+2 lb 8 oz) 103/64 Negative -?-?-?-?-?-?-?-?-?-?-?-?- Negative 150 -?-?-?-?-?-?-?-?-?-?-?-?- JV- no lof, vagi nal bleeding, or cramping. 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 needs follow up at 28 weeks. 01/24/25 -?-?-?-?-?-?-?-?-?-?-?-?- 24w 1d 182 lb 4 oz (+6 lb 4 oz) 114/72 Negative -?-?-?-?-?-?-?-?-?-?-?-?- Negative 150 24 -?-?-?-?-?-?-?-?-?-?-?-?- SM- no vb lof go od fm no regular ctx 02/21/25 -?-?-?-?-?-?-?-?-?-?-?-?- 28w 1d 183 lb 2 oz (+7 lb 2 oz) 112/70 Negative -?-?-?-?-?-?-?-?-?-?-?-?- Negative 145 28 -?-?-?-?-?-?-?-?-?--?-?-?- JV- no lof, vagi nal bleeding or dec fm. gct today. wants to think about tdap. 03/07/25 -?-?-?-?-?-?-?-?-?-?-?-?- 30w 1d 186 lb (+10 lb) 102/64 Negative -?-?-?-?-?-?-?-?-?-?-?-?- Negative 138 31 -?-?-?-?-?-?-?-?-?-?-?-?- JV- lar signed. patient is thinking paragard but at post visit. no lof, vaginal bleeding, or dec fm. 03/21/25 -?-?-?-?-?-?-?-?-?-?-?-?- 32w 1d 186 lb 4 oz (+10 lb 4 oz) 116/78 Negative -?-?-?-?-?-?-?-?-?-?-?-?- Negative 130 33 -?-?-?-?-?-?-?-?-?-?-?-?- KW- no vb/lof/ct x. good fm KW- no vb/lof/ctx. good fm. no concerns today 04/04/25 -?-?-?-?-?-?-?-?-?-?-?-?- 34w 1d 187 lb (+11 lb) 97/66 Negative -?-?-?-?-?-?-?-?-?-?-?-?- Negative 135 34 Cephalic -?-?-?-?-?-?-?-?-?-?-?-?- SM- no vb lof go od fm no reuglar ctx 04/18/25 -?-?-?-?-?-?-?-?-?-?-?-?- 36w 1d 191 lb 4 oz (+15 lb 4 oz) 125/74 Negative -?-?-?-?-?-?-?-?-?-?-?-?- Negative 130 36 Cephalic 0 -?-?-?-?-?-?-?-?-?-?-?-?- KW- no vb/lof/ct x. good fm. had one episode of distorted vision after large position change-pre e labs today-likely due to position. plan for 39 week IOL- had 5hour labor with first baby. GBS +. Bedside US to confirm cephalic. 04/26/25 -?-?-?-?-?-?-?-?-?-?-?--?- 37w 2d 193 lb 2 oz (+17 lb 2 oz) 94/62 Negative -?-?-?-?-?-?-?-?-?-?-?-?- Negative 135 37 0 -?-?-?-?-?-?-?-?-?-?-?-?- LC- no vb/ctx/lo f. good fm. discussed pp depression with first. reviewed medications/support. would like a 2 week pp visit for medication management if needed. 05/02/25 -?-?-?-?-?-?-?-?-?-?-?-?- 38w 1d 194 lb 6 oz (+18 lb 6 oz) 122/75 Negative -?-?-?-?-?-?-?-?-?-?-?-?- Negative 130 38 0 -?-?-?-?--?-?-?-?-?-?-?-?- KW- no vb/lof/ct x. good fm IOL at 40 weeks. 05/09/25 -?-?-?-?-?-?-?-?-?-?-?-?- 39w 1d 195 lb 8 oz (+19 lb 8 oz) 105/74 Negative -?-?-?-?-?-?-?-?-?-?-?-?- Negative 145 38 Cephalic 0 -?-?-?-?-?-?-?-?-?-?-?-?- JV_ Cytotec IOL set up for tuesday night. no lof, vaginal bleeding, or dec fm. NST FHR Rate Baby A Baseline: 130 Variability:: Moderate Accelerations:: 15 x 15 Decelerations:: None NST Reactive:: Yes FHR Category:: Category I Uterine Activity:: irregular ROS Constitutional Constitutional: Reports systems reviewed and no addt'l complaints, except as doc umented Eyes Eyes: Denies change in vision ENT HEENT: Reports systems reviewed and no addt'l complaints, except as documented; Denies headache(s) Cardiovascular Cardiovascular: Reports systems reviewed and no addt'l complaints, except as documented; Denies chest pain or dyspnea Respiratory/Chest Respiratory/Chest: Reports systems reviewed and no addt'l complaints, except as documented Gastrointestinal Gastrointestinal: Reports systems reviewed and no addt'l complaints, except as documented; Denies abdominal pain Genitourinary Genitourinary: Reports systems reviewed and no addt'l complaints, except as documented, contractions Details: present (irregular) and movement Details: present; Denies dysuria or genital lesions Musculoskeletal Musculoskeletal: Reports systems reviewed and no addt'l complaints, except as documented Neurologic Neurologic: Reports systems reviewed and no addt'l complaints, except as documented Endocrine Endocrinology: Reports systems reviewed and no addt'l complaints, except as documented Vital Signs Vital Signs Vital Signs: 05/13/25 19:35 05/13/25 19:35 05/13/25 19:35 Temperature 97.7 F L Temperature Source Temporal Pulse Rate Respiratory Rate 16 Blood Pressure BP Systolic BP Diastolic Pulse Ox 05/13/25 19:39 05/13/25 19:39 05/13/25 19:40 Temperature Temperature Source Pulse Rate 107 H Respiratory Rate Blood Pressure 122/77 H BP Systolic 122 BP Diastolic 77 Pulse Ox 98 05/13/25 19:40 Temperature Temperature Source Pulse Rate 96 Respiratory Rate Blood Pressure BP Systolic BP Diastolic Pulse Ox Weight Weight: 195 lb Body Mass Index (BMI) 38.0 Physical Exam Const alert, oriented x3, no apparent distress and healthy appearing HEENT normocephalic and moist oral mucous membranes Head and Scalp: atraumatic Neck full ROM, no lymphadenopathy, supple and thyroid normal General: trachea midline Lymph Lymphatic: no lymphadenopathy noted Chest inspection of chest normal Resp normal respiratory effort Cardio regular rate GI soft to palpation and non-tender GI Narrative: gravid Inspection: gravid external exam normal Manual OB Exam: estimated gestational size appropriate, presentation cephalic, dilated, effaced and station Extremity normal to inspection General Extremity: Negative for edema Skin no rashes or lesions noted Neuro no focal motor deficits and deep tendon reflexes 2+ bilaterally Motor Exam: strength 5/5 throughout and clonus absent Psych mental status grossly normal Labs Labs Labs: Blood Type A NEGATIVE Antibody Screen NEGATIVE Hct 36.9 % (37-47) L Hgb 12.6 g/dL (12.0-15.0) Obstetrics Ultrasound Syphilis Total Ab Nonreactive (Nonreactive) Rubella IgG Antibody Reactive (Nonreactive) Hep Bs Antigen Non-Reactive (Nonreactive) Hepatitis C Antibody Non-Reactive (Nonreactive) Chlamydia DNA (CADY) Negative (Negative) N.gonorrhoeae DNA (CADY) Negative (Negative) HIV 1&2 Antibody Nonreactive (Nonreactive) Glucose 1 Hr 50 gm 124 mg/dL (70-140) Miscellaneous Test Assessment & Plan (1) Encounter for induction of labor: (2) History of infertility: COMMENT: Unknown factor. Failed 6 IUI per [facility]GI. Daughter/spontaneous . THIS also spontaneous/surprise (3) : QUALIFIERS: Weeks of gestation: 39 weeks Qualified Code(s): Z3A.3 9 - 39 weeks gestation of COMMENT: Discussed genetic/carrier testing - undecided, nl anatomy(choroid plexus cyst noted. Offered NIPT again) (4) Supervision of high-risk : QUALIFIERS: Trimester: second trimester Qualified Code(s): O09.92 - Supervision of high risk , unspecified, second trimester COMMENT: PRR, , JUAN 05/15/25, boy PC: Tisha, : [place] (5) AMA (advanced maternal age) multigravida 35+: QUALIFIERS: Trimester: second trimester Qualified Code(s): O09.522 - Supervision of elderly multigravida, second trimester COMMENT: growth US 36 weeks deliveyr by 40 (6) Obesity affecting : QUALIFIERS: Trimester: second trimester Obesity type affecting : unspecified obesity Qualified Code(s): O99.212 - Obesity complicating , second trimester COMMENT: BMI 30 - HgA1C ordered with NOB labs (7) Rh negative status during : QUALIFIERS: Trimester: second trimester Qualified Code(s): O26.892 - Other specified related conditions, second trimester; Z67.91 - Unspecified blood type, Rh negative COMMENT: A-: 11/29/24: spotting, rhogam given. Rhogam given on 02/21/25 (8) GBS (group B streptococcus) UTI complicating : QUALIFIERS: Trimester: second trimester Qualified Code(s): O23.42 - Unspecified infection of urinary tract in , second trimester; B95.1 - Streptococcus, group B, as the cause of diseases classified elsewhere COMMENT: not high enough to treat. treat in labor -Clindamycin (tolerates well) (9) Choroid plexus cyst: COMMENT: follow up scan at 28 weeks declines NIPT PLAN: Plan Patient presents IOL, plan management for with pitocin/AROM. Pain management: . GBS negative. Management of any complications: none I have reviewed the [facility] and made any clinically relevant updates.
[2025-05-13 21:20] LABS: Syphilis Antibodies Nonreactive (Nonreactive)
[2025-05-13] MEDS: Clindamycin 900 MG/50 ML BAG 75 MG IV (21:39)
--- OUTSIDE RECORDS SUMMARY | 2025-05-13 23:21 | XMS RPT_ITS | CCD ---
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 Aarti Escalante DO Attending Provider Shweta MILLS-CMarielos Attending Provider [phone] Shweta MEDICAL RECEPTIONIST BILLER-CMarielos Referring Provider Dr. Ayaka Lozano MD Attending Provider [phone] Niya Alicea CNM Attending Provider [phone] Niya Alicea CNM Referring Provider [phone] Care Physician, No Primary Primary Care Provider Unavailable Care Physician, No Primary Referring Provider Un available Dr. Aarti Escalante DO Attending Provider Dr. Hector Abrams DO Emergency Provider [phone] Care Physician, No Primary Primary Care Provider Unavailable Care Physician, No Primary Referring Provider Un available Dr. Hector Abrams DO Attending Provider Dr. Ayaka Lozano MD Referring Provider [phone] Meryl Smith CNM Attending Provider [phone] Care Physician, No Primary Primary Care Provider Unavailable Care Physician, No Primary Referring Provider Un available Dr. Aarti Escalante DO Attending Provider Care Physician, No Primary Referring Unava ilable Aarti Escalante Attending Unavailabl e Care Physician, No Primary Primary Care Unava ilable Care Physician, No Primary Referring Unava ilable Aarti Escalante Attending Unavailabl e Care Physician, No Primary Primary Care Unava ilNimisha White Attending Unavailable Care Physician, No Primary Primary Care Unava ilable Aarti Escalante Attending Unavailabl e Care Physician, No Primary Primary Care Unava ilable Care Physician, No Primary Referring Unava ilable Care Physician, No Primary Primary Care Unava ilable Care Physician, No Primary Referring Unava ilable Niya Alicea Attending Unavailable Care Physician, No Primary Referring Unava ilable Aarti Escalante Attending Unavailabl e Care Physician, No Primary Primary Care Unava ilable Care Physician, No Primary Referring Unava ilable Ayaka Lozano Attending Unavailable Care Physician, No Primary Primary Care Unava ilable Aarti Escalante Attending Unavailabl e Care Physician, No Primary Referring Unava ilable Care Physician, No Primary Primary Care Unava ilable Care Physician, No Primary Primary Care Unava ilable Ayaka Lozano Referring Unavailable Ayaka Lozano Attending Unavailable Care Physician, No Primary Primary Care Unava ilable Care Physician, No Primary Referring Unava ilable Niya Alicea Attending Unavailable Care Physician, No Primary Primary Care Unava ilable Niya Alicea Attending Unavailable Niya Alicea Referring Unavailable Care Physician, No Primary Primary Care Unava ilable Care Physician, No Primary Referring Unava ilAyaka Dillon Attending Unavailable [place] MEDICAL RECEPTIONIST BILLER, Marielos Referring Unavailable Shweta MEDICAL RECEPTIONIST BILLER, Marielos Attending Unavailable Care Physician, No Primary Primary Care Unava ilable Care Physician, No Primary Primary Care Unava ilable Niya Alicea Attending Unavailable Niya Alicea Referring Unavailable Care Physician, No Primary Primary Care Unava ilable Hector Abrams Attending Unavailable Care Physician, No Primary Primary Care Unava ilable Niya Alicea Referring Unavailable Niya Alicea Attending Unavailable Meryl Smith Attending Unavailable Care Physician, No Primary Primary Care Unava ilable Care Physician, No Primary Referring Unava ilable Care Physician, No Primary Referring Unava ilable Care Physician, No Primary Primary Care Unava ilable Niya Alicea Attending Unavailable Care Physician, No Primary Referring Unava ilable Care Physician, No Primary Primary Care Unava ilNiya Lopez Attending Unavailable Care Physician, No Primary Referring Unava ilable Aarti Escalante Attending Unavailabl e Care Physician, No Primary Primary Care Unava ilable Care Physician, No Primary Referring Unava ilable Care Physician, No Primary Primary Care Unava ilable Marielos Rock NP Attending Unavailable Allergies Allergy Classification Reported Allergen(s) Allergy Type Date of Onset Reaction(s) Facility (10 sources) Penicillins Allergy to substance 09-16-2022 Vomiting [facility] (1 source) Penicillins Drug allergy (disorder) 05-09-2025 [facility] Repository Medications Current Medications Medication Drug Class(es) Dates Sig (Normalized) Sig (Original) cholecalciferol 0.025 mg oral capsule (9 sources) Vitamin D Start: 09-21-2024 take 1 capsule by mouth once daily Cholecalciferol (Vitamin D3) 25 mcg (1,000 unit) capsule Active 25 ug PO daily September 21, 2024 12:00am Xhhrvgpp-Qxz-Tb-Fa () 1 mg Tablet (10 sources) Start: 09-16-2022 take 1 tablet by mouth once daily Dmyrjewr-Ely-Te-Fa () 1 mg Tablet Active 1 {tbl} PO DAILY September 16, 2022 12:00am Start: 09-16-2022 take 1 tablet by dipak th once daily Bojvxanj-Ixe-Ty-Fa () 1 mg Tablet Active 1 TABLET PO DAILY September 16, 2022 12:00am Problems Active Problems Problem Classification Problem Date Documented Date Episodic/Chronic Bacterial infection; unspecified site (1 source) Streptococcus, group B, as the cause of diseases classified elsewhere; Translations: [Streptococcus, group B, as the cause of diseases classified elsewhere] Onset: 05-02-2025 Episodic Blindness and vision defects (1 source) Other subjective visual disturbances; Translations: [Other subjective visual disturbances] Onset: 04-24-2025 Episodic Immunizations and screening for infectious disease (1 source) Encounter for immunization; Translations: [Encounter for immunization] Onset: 03-07-2025 Episodic Other complications of (20 sources) Maternal obesity complicating , childbirth and the puerperium, antepartum; Translations: [Obesity complicating , unspecified trimester] 11-29-2024 Chronic Comment on above: BMI 30 - HgA1C order ed with NOB labs Other complications of (1 source) Obesity complicating , second trimester; Translations: [Obesity complicating , second trimester] Onset: 05-02-2025 Chronic Other complications of (1 source) Obesity complicating , unspecified trimester; Translations: [Obesity complicating , unspecified trimester] Onset: 10-22-2024 Chronic Other complications of (20 sources) Multigravida of advanced maternal age; Translations: [Supervision of elderly multigravida, unspecified trimester] 01-24-2025 Episodic Comment on above: growth US 36 weeks d eliveyr by 40 Other complications of (20 sources) High risk ; Translations: [Supervision of high risk , unspecified, unspecified trimester] 11-29-2024 Episodic Comment on above: PRR, , JUAN 05/15, PC: Tisha, : [employer] PRR, , JUAN 05/15, boy PC: Tisha, : [employer] Other complications of (20 sources) Urinary tract infection in ; Translations: [Unspecified infection of urinary tract in , unspecified trimester] 11-29-2024 Episodic Comment on above: not high enough to t reat. treat in labor not high enough to t reat. treat in labor -Clindamycin (tolerates well) Other complications of (20 sources) RhD negative; Translations: [Other specified related conditions, unspecified trimester] 02-21-2025 Episodic Comment on above: A-: 11/29/24: spotting , rhogam given. Rhogam given on 02/21/25 Other complications of (1 source) Supervision of high risk , unspecified, second trimester; Translations: [Supervision of high risk , unspecified, second trimester] Onset: 05-02-2025 Episodic Other complications of (1 source) Other specified related conditions, second trimester; Translations: [Other specified related conditions, second trimester] Onset: 05-02-2025 Episodic Other complications of (1 source) Supervision of elderly multigravida, second trimester; Translations: [Supervision of elderly multigravida, second trimester] Onset: 05-02-2025 Episodic Other complications of (1 source) Unspecified infection of urinary tract in , second trimester; Translations: [Unspecified infection of urinary tract in , second trimester] Onset: 05-02-2025 Episodic Other female genital disorders (20 sources) H/O: Disorder; Translations: [Personal history of other diseases of the female genital tract] 09-21-2024 Episodic Comment on above: Unknown factor. Fail ed 6 IUI per RGI. Daughter/spontaneous . 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-31-2024 Chronic Comment on above: follow up scan at 28 weeksdeclines NIPT Other nervous system disorders (1 source) Cerebral cysts; Translations: [Cerebral cysts] Onset: 05-02-2025 Chronic Other conditions (7 sources) choroid plexus cyst 12-27-2024 Episodic Residual codes; unclassified (1 source) Unspecified blood type, Rh negative; Translations: [Unspecified blood type, Rh negative] Onset: 05-02-2025 Episodic Residual codes; unclassified (1 source) 38 weeks gestation of ; Translations: [38 weeks gestation of ] Onset: 05-02-2025 Episodic Residual codes; unclassified (1 source) 34 weeks gestation of ; Translations: [34 weeks gestation of ] Onset: 04-04-2025 Episodic Residual codes; unclassified (1 source) 32 weeks gestation of ; Translations: [32 weeks gestation of ] Onset: 03-21-2025 Episodic Sprains and strains (8 sources) Sprain of ankle; Translations: [Sprain of unspecified ligament of unspecified ankle, initial encounter] 03-29-2025 Episodic Past or Other Problems Problem Classification Problem Date Documented Date Episodic/Chronic Other complications of (1 source) Other specified related conditions, unspecified trimester; Translations: [Other specified related conditions, unspecified trimester] Onset: 11-29-2024 Episodic Other complications of (1 source) Supervision of elderly multigravida, unspecified trimester; Translations: [Supervision of elderly multigravida, unspecified trimester] Onset: 10-03-2024 Episodic Other complications of (1 source) Supervision of high risk , unspecified, unspecified trimester; Translations: [Supervision of high risk , unspecified, unspecified trimester] Onset: 10-03-2024 Episodic Other and delivery including normal (20 sources) Vaginal delivery; Translations: [Encounter for full-term uncomplicated delivery] Onset: 12-19-2024 Episodic Comment on above: Discussed genetic/ca rrier testing - undecided, nl anatomy(choroid plexus cyst noted. Offered NIPT again) Residual codes; unclassified (1 source) 8 weeks gestation of ; Translations: [8 weeks gestation of ] Onset: 10-03-2024 Episodic Results Test Name Value Interpretation Reference Range Facility Administrative Job Titles Office Visit Reporton 05-09-2025 Administrative Job Titles Office Visit Report [facility] [address], [address] [place] [address] OFFICE VISIT Date of Service: 05/09/25 MR#: [id number] Acct: [id number] Name: KIRK CARVALHO Rep #: [id number] : 1990 Provider: Dr. Aarti Bush DO Age/Sex: 34/F [place] [facility] [place]: Signed Intake Vital Signs 11/29/24 09:58 05/02/25 09:51 05/09/25 09:54 05/09/25 09:54 Height 5 ft 5 ft 5 ft 5 ft Weight: 195 lb 8 oz BMI 38.2 BP 105/74 Intake Visit Reasons: 39 wk ob 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 Is patient in pain?: No Allergies Penicillins Allergy (Verified 05/09/25 09:53) Vomiting Medications ???Medication ???Instructions ???Recorded ???Confirmed ???Type nfevvsnr-fkk-Wk-FA 1 mg 1 tab PO DAILY 09/16/22 05/09/25 History tablet cholecalciferol (vitamin D3) 25 25 mcg PO QDAY 09/21/24 05/09/25 H istory mcg (1,000 unit) capsule Last Menstrual Period: 08/08/24 Zika: Zika virus screening: Negative : No PFSH PFSH Family History Mother Endometriosis Lupus Social History adopted: No household members: spouse and children number of children: 1 current occupation: [employer] current occupational exposures/hazards: No pets and animals: Yes history of recent travel: No sexually active: Yes Smoking Status: Never smoker alcohol intake: never substance use type: does not use well-balanced diet: daily or most days caffeine: Yes Type: carbonated beverages Number of servings: 1 eating out: rarely or never during the past year weight has: increased > 10 lbs what type of physical activity do you participate in: walking frequency: 1-2 times per week duration: < 15 minutes/day seatbelt use: always do you feel safe at home: Yes 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 Date Name GA/Weeks Outcome Route Bth Weight Infant Gen Labor Lgth Anesthesia Del Locatn Provider FOB 09/16/22 Tisha 41 live - full term 7lbs Female none [facility] Jg Doshi HPI 39 wk ob Details: KIRK CARVALHO is a 34 year old who presents for routine OB visit. OB Visit JUAN Calculator Estimated Delivery Date Method Current WG Current Estimate 05/15/25 LMP (Uncertain) 39w 1d Other Estimates 05/13/25 Ultrasound #1 39w 3d Expected Delivery Route/Plan Labor Preferences- CB/BF classes: [] labor support person: [] labor intervention preferences: [] pain management options preferred: [] cut cord/dad catch: [] :desire s, but had a hard time with first. PP control planned: [] discussed possible routes of delivery and associated risks: [] special requests: [] Specific Issue/Plans Covid status: [] Flu vaccine: given Tdap vaccine: [] Rhogam: given 11/29/24(spotting) LARC form signed: [] Problem list reviewed and updated with the most current plan of care details and appropriate orders placed. Relevant counseling for the gestational age provided. Continue routine care and follow up unless otherwise noted in visit notes/problem list details Initial Weight: 176 lb Date -???-???-???-???-??? -???-???-???-???-??? -???-???- EGA Weight BP Urine Prot -???-???-???-???-??? -???-???-???-???-??? -???-???- Glucose FHR FuHt Pres Dilation -???-???-???-???-??? -???-???-???-???-??? -???-???- Effaced St Visit Note 10/03/24 -???-???-???-???-??? -???-???-???-???-??? -???-???- 8w 0d 176 lb 8 oz (+8 oz) 133/78 -???-???-???-???-??? -???-???-???-???-??? -???-???- 180 -???-???-???-???-??? -???-???-???-???-??? -???-???- KW- CRL cons with dates. Declines NIPT. 10/31/24 -???-???-???-???-??? -???-???-???-???-??? -???-???- 12w 0d 178 lb 6 oz (+2 lb 6 oz) 112/76 Negative -???-???-???-???-??? -???-???-???-???-??? -???-???- Negative 165 -???-???-???-???-??? -???-???-???-???-??? -???-???- JV- no lof, vaginal bleeding, or cramping. anatomy scan ordered 11/29/24 -???-???-???-???-??? -???-???-???-???-??? -???-???- 16w 1d 177 lb 8 oz (+1 lb 8 oz) 124/78 Negative -???-???-???-???-??? -???-???-???-???-??? -???-???- Negative 148 -???-???-???-???-??? -???-???-???-???-??? -???-???- MH-Had episo de light spotting just over a week ago. T S plus rhogam today. Feeling flutters. Flu vaccine given. 12/27/24 -???-???-???-???-??? -???-???-???-???-??? -???-???- 20w 1d 178 lb 8 oz (+2 lb 8 oz) 103/64 Negative -???-???-???-???-??? -???-???-???-???-??? -???-???- Negative 150 -???-???-???-???-??? -???-??? (more content not included)... Normal [facility] - Chemistry and C hemistry - challengeOrdered By: Niya Alicea on 05-02-2025 Glucose Ql (U) Negative [facility] - UrinalysisOrder ed By: Niya Alicea on 05-02-2025 Protein Ql (U) Negative [facility] Administrative Job Titles Office Visit Reporton 05-02-2025 Administrative Job Titles Office Visit Report [facility] [address], [address] [place] [address] OFFICE VISIT Date of Service: 05/02/25 MR#: [id number] Acct: [id number] Name: KIRK CARVALHO Rep #: [id number] : 1990 Provider: ASHUTOSH Davenport ams Age/Sex: 34/F [place] [facility] [place]: Signed Intake Vital Signs 11/29/24 09:58 04/26/25 10:28 05/02/25 09:51 Height 5 ft 5 ft 5 ft Weight: 194 lb 6 oz BMI 37.9 BP 122/75 H Intake Visit Reasons: 38 wk ob 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 Is patient in pain?: No Allergies Penicillins Allergy (Verified 05/02/25 09:53) Vomiting Medications ???Medication ???Instructions ???Recorded ???Confirmed ???Type fbxzfhsw-mon-Up-FA 1 mg 1 tab PO DAILY 09/16/22 05/02/25 History tablet cholecalciferol (vitamin D3) 25 25 mcg PO QDAY 09/21/24 05/02/25 H istory mcg (1,000 unit) capsule Last Menstrual Period: 08/08/24 Zika: Zika virus screening: Negative : No PFSH PFSH Family History Mother Endometriosis Lupus Social History adopted: No household members: spouse and children number of children: 1 current occupation: [employer] current occupational exposures/hazards: No pets and animals: Yes history of recent travel: No sexually active: Yes Smoking Status: Never smoker alcohol intake: never substance use type: does not use well-balanced diet: daily or most days caffeine: Yes Type: carbonated beverages Number of servings: 1 eating out: rarely or never during the past year weight has: increased > 10 lbs what type of physical activity do you participate in: walking frequency: 1-2 times per week duration: < 15 minutes/day seatbelt use: always do you feel safe at home: Yes 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 Date Name GA/Weeks Outcome Route Bth Weight Gen Labor Lgth Anesthesia Del Locatn Provider FOB 09/16/22 Tisha 41 live - full term 7lbs Female none [facility] Jg Mcdonald Tico HPI 38 wk ob Details: KIRK CARVALHO is a 34 year old who presents for routine OB visit. OB Visit JUAN Calculator Estimated Delivery Date Method Current WG Current Estimate 05/15/25 LMP (Uncertain) 38w 1d Other Estimates 05/13/25 Ultrasound #1 38w 3d Expected Delivery Route/Plan Labor Preferences- CB/BF classes: [] labor support person: [] labor intervention preferences: [] pain management options preferred: [] cut cord/dad catch: [] :desire s, but had a hard time with first. PP control planned: [] discussed possible routes of delivery and associated risks: [] special requests: [] Specific Issue/Plans Covid status: [] Flu vaccine: given Tdap vaccine: [] Rhogam: given 11/29/24(spotting) LARC form signed: [] Problem list reviewed and updated with the most current plan of care details and appropriate orders placed. Relevant counseling for the gestational age provided. Continue routine care and follow up unless otherwise noted in visit notes/problem list details Initial Weight: 176 lb Date -???-???-???-???-??? -???-???-???-???-??? -???-???- EGA Weight BP Urine Prot -???-???-???-???-??? -???-???-???-???-??? -???-???- Glucose FHR FuHt Pres Dilation -???-???-???-???-??? -???-???-???-???-??? -???-???- Effaced St Visit Note 10/03/24 -???-???-???-???-??? -???-???-???-???-??? -???-???- 8w 0d 176 lb 8 oz (+8 oz) 133/78 -???-???-???-???-??? -???-???-???-???-??? -???-???- 180 -???-???-???-???-??? -???-???-???-???-??? -???-???- KW- CRL cons with dates. Declines NIPT. 10/31/24 -???-???-???-???-??? -???-???-???-???-??? -???-???- 12w 0d 178 lb 6 oz (+2 lb 6 oz) 112/76 Negative -???-???-???-???-??? -???-???-???-???-??? -???-???- Negative 165 -???-???-???-???-??? -???-???-???-???-??? -???-???- JV- no lof, vaginal bleeding, or cramping. anatomy scan ordered 11/29/24 -???-???-???-???-??? -???-???-???-???-??? -???-???- 16w 1d 177 lb 8 oz (+1 lb 8 oz) 124/78 Negative -???-???-???-???-??? -???-???-???-???-??? -???-???- Negative 148 -???-???-???-???-??? -???-???-???-???-??? -???-???- MH-Had episo de light spotting just over a week ago. T S plus rhogam today. Feeling flutters. Flu vaccine given. 12/27/24 -???-???-???-???-??? -???-???-???-???-??? -???-???- 20w 1d 178 lb 8 oz (+2 lb 8 oz) 103/64 Negative -???-???-???-???-??? -???-???-???-???-??? -???-???- Negative 150 -???-???-???-???-??? -???-???-???-???-??? -???-???- JV- no lof (more content not included)... Normal [facility] - Chemistry and C hemistry - challengeOrdered By: Meryl Smith on 04-26-2025 Glucose Ql (U) Negative [facility] - UrinalysisOrder ed By: Meryl Smith on 04-26-2025 Protein Ql (U) Negative [facility] Administrative Job Titles Office Visit Reporton 04-26-2025 Administrative Job Titles Office Visit Report [facility] [address], [address] [place] [address] OFFICE VISIT Date of Service: 04/26/25 MR#: [id number] Acct: [id number] Name: KIRK CARVALHO Rep #: [id number] : 1990 Provider: ASHUTOSH duron Age/Sex: 34/F [place] [facility] [place]: Signed Intake Vital Signs 11/29/24 09:58 04/18/25 10:03 04/26/25 10:28 04/26/25 10:28 Height 5 ft 5 ft 5 ft 5 ft Weight: 193 lb 2 oz BMI 37.7 BP 94/62 Intake Visit Reasons: 37 wk ob 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 Is patient in pain?: No Allergies Penicillins Allergy (Verified 04/26/25 10:27) Vomiting Medications ???Medication ???Instructions ???Recorded ???Confirmed ???Type mihfeaja-gxk-Wq-FA 1 mg 1 tab PO DAILY 09/16/22 04/26/25 History tablet cholecalciferol (vitamin D3) 25 25 mcg PO QDAY 09/21/24 04/26/25 H istory mcg (1,000 unit) capsule Last Menstrual Period: 08/08/24 Zika: Zika virus screening: Negative : No PFSH PFSH Family History Mother Endometriosis Lupus Social History adopted: No household members: spouse and children number of children: 1 current occupation: [employer] current occupational exposures/hazards: No pets and animals: Yes history of recent travel: No sexually active: Yes Smoking Status: Never smoker alcohol intake: never substance use type: does not use well-balanced diet: daily or most days caffeine: Yes Type: carbonated beverages Number of servings: 1 eating out: rarely or never during the past year weight has: increased > 10 lbs what type of physical activity do you participate in: walking frequency: 1-2 times per week duration: < 15 minutes/day seatbelt use: always do you feel safe at home: Yes 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 Date Name GA/Weeks Outcome Route Bth Weight Infant Gen Labor Lgth Anesthesia Del Locatn Provider FOB 09/16/22 Tisha 41 live - full term 7lbs Female none [facility] Jg Doshi HPI 37 wk ob Details: KIRK CARVALHO is a 34 year old who presents for routine OB visit. OB Visit JUAN Calculator Estimated Delivery Date Method Current WG Current Estimate 05/15/25 LMP (Uncertain) 37w 2d Other Estimates 05/13/25 Ultrasound #1 37w 4d Expected Delivery Route/Plan Labor Preferences- CB/BF classes: [] labor support person: [] labor intervention preferences: [] pain management options preferred: [] cut cord/dad catch: [] :desire s, but had a hard time with first. PP control planned: [] discussed possible routes of delivery and associated risks: [] special requests: [] Specific Issue/Plans Covid status: [] Flu vaccine: given Tdap vaccine: [] Rhogam: given 11/29/24(spotting) LARC form signed: [] Problem list reviewed and updated with the most current plan of care details and appropriate orders placed. Relevant counseling for the gestational age provided. Continue routine care and follow up unless otherwise noted in visit notes/problem list details Initial Weight: 176 lb Date -???-???-???-???-??? -???-???-???-???-??? -???-???- EGA Weight BP Urine Prot -???-???-???-???-??? -???-???-???-???-??? -???-???- Glucose FHR FuHt Pres Dilation -???-???-???-???-??? -???-???-???-???-??? -???-???- Effaced St Visit Note 10/03/24 -???-???-???-???-??? -???-???-???-???-??? -???-???- 8w 0d 176 lb 8 oz (+8 oz) 133/78 -???-???-???-???-??? -???-???-???-???-??? -???-???- 180 -???-???-???-???-??? -???-???-???-???-??? -???-???- KW- CRL cons with dates. Declines NIPT. 10/31/24 -???-???-???-???-??? -???-???-???-???-??? -???-???- 12w 0d 178 lb 6 oz (+2 lb 6 oz) 112/76 Negative -???-???-???-???-??? -???-???-???-???-??? -???-???- Negative 165 -???-???-???-???-??? -???-???-???-???-??? -???-???- JV- no lof, vaginal bleeding, or cramping. anatomy scan ordered 11/29/24 -???-???-???-???-??? -???-???-???-???-??? -???-???- 16w 1d 177 lb 8 oz (+1 lb 8 oz) 124/78 Negative -???-???-???-???-??? -???-???-???-???-??? -???-???- Negative 148 -???-???-???-???-??? -???-???-???-???-??? -???-???- MH-Had episo de light spotting just over a week ago. T S plus rhogam today. Feeling flutters. Flu vaccine given. 12/27/24 -???-???-???-???-??? -???-???-???-???-??? -???-???- 20w 1d 178 lb 8 oz (+2 lb 8 oz) 103/64 Negative -???-???-???-???-??? -???-???-???-???-??? -???-???- Negative 150 -???-???-???-???-??? -???-???-???-???-? (more content not included)... Normal [facility] Absolute lymphocyte countOrd ered By: Niya Alicea on 04-18-2025 Lymphocytes Auto (Unsp spec) [#/Vol] 1.99 10*3/uL 0.83-4.51 [facility] Absolute neutrophil countOrd ered By: Niya Alicea on 04-18-2025 Neutrophils (Bld) [#/Vol] 7.1 10*3/uL 2.0-7.7 [facility] Anion gap in Serum or Plasma Ordered By: Niya Alicea on 04-18-2025 Anion gap [Moles/Vol] 11 mmol/L 5-15 [facility] Automated lymphocyte count a s percentage of total leukocytesOrdered By: Niya Alicea on 04-18-2025 Lymphocytes/100 WBC Auto (Unsp spec) 19.4 % 19-41 [facility] BUN/creatinine ratioOrdered By: Niya Alicea on 04-18-2025 Urea nitrogen/Creatinine [Mass ratio] 5.7 mg/mg Low 10-20 [facility] Basophil percentageOrdered B y: Niya Alicea on 04-18-2025 Basophils/100 WBC (Bld) 0.6 % 0-1 [facility] Bilirubin, totalOrdered By: Niya Alicea on 04-18-2025 Bilirubin [Mass/Vol] 0.23 mg/dL 0.00-1.30 [facility] CBC W/Diff, Automatedon 03-22 Absolute Lymph 1.99 X10 3/uL Normal 0.83-4.51 [facility] Comment on above: Performed By: #### L 501.0900, L100.0100, L500.4050 ####[facility] [address] [place], [address] Absolute Neut 7.1 X10 3/uL Normal 2.0-7.7 [facility] Comment on above: Performed By: #### L 501.0900, L100.0100, L500.4050 ####[facility] [address] [place], [address] Basophils/100 WBC (Bld) 0.6 % Normal 0-1 [facility] Comment on above: Performed By: #### L 501.0900, L100.0100, L500.4050 ####[facility] [address] [place], [address] Eosinophils/100 WBC (Bld) 1.3 % Normal 0-5 [facility] Comment on above: Performed By: #### L 501.0900, L100.0100, L500.4050 ####[facility] [address] [place], [address] Erythrocyte distribution width (RBC) [Ratio] 13.7 % Normal 11.6-14.6 [facility] Comment on above: Performed By: #### L 501.0900, L100.0100, L500.4050 ####[facility] [address] [place], [address] Hematocrit (Bld) [Volume fraction] 36.6 % Low 37-47 [facility] Comment on above: Performed By: #### L 501.0900, L100.0100, L500.4050 ####[facility] [address] [place], [address] Hemoglobin (Bld) [Mass/Vol] 12.6 g/dL Normal 12.0-15.0 [facility] Comment on above: Performed By: #### L 501.0900, L100.0100, L500.4050 ####[facility] [address] [place], [address] IG% 1.500 High 0.0-0.9 [facility] Comment on above: Result Comment: IG% - Immature Granulocytes (promyelocytes, myelocytes and metamyelocytes) > 1% indicates that a LEFT SHIFT is Present. Performed By: #### L 501.0900, L100.0100, L500.4050 ####[facility] [address] [place], [address] Lymphocytes/100 WBC (Bld) 19.4 % Normal 19-41 [facility] Comment on above: Performed By: #### L 501.0900, L100.0100, L500.4050 ####[facility] [address] [place], [address] MCH (RBC) [Entitic mass] 29.0 pg Normal 27.0-32.0 [facility] Comment on above: Performed By: #### L 501.0900, L100.0100, L500.4050 ####[facility] [address] [place], [address] MCHC (RBC) [Mass/Vol] 34.4 g/dL Normal 32-36 [facility] Comment on above: Performed By: #### L 501.0900, L100.0100, L500.4050 ####[facility] [address] [place], [address] MCV (RBC) [Entitic vol] 84.3 fL Normal 81-99 [facility] Comment on above: Performed By: #### L 501.0900, L100.0100, L500.4050 ####[facility] [address] [place], [address] Monocytes/100 WBC (Bld) 7.8 % Normal 0-10 [facility] Comment on above: Performed By: #### L 501.0900, L100.0100, L500.4050 ####[facility] [address], [address] Neutrophils/100 WBC (Bld) 69.4 % Normal 47-70 [facility] Comment on above: Performed By: #### L 501.0900, L100.0100, L500.4050 ####[facility] [address] [place], [address] Nucleated RBC (Bld) [#/Vol] 0 10*3/uL Normal 0-5 [facility] Comment on above: Performed By: #### L 501.0900, L100.0100, L500.4050 ####[facility] [address] [place], [address] Platelet mean volume (Bld) [Entitic vol] 9.5 fL Normal 6.2-12.0 [facility] Comment on above: Performed By: #### L 501.0900, L100.0100, L500.4050 ####[facility] [address] [place], [address] Platelets (Bld) [#/Vol] 315 10*3/uL Normal 150-450 [facility] Comment on above: Performed By: #### L 501.0900, L100.0100, L500.4050 ####[facility] [address] [place], [address] RBC (Bld) [#/Vol] 4.34 10*6/uL Normal 4.2-5.4 [facility] Comment on above: Performed By: #### L 501.0900, L100.0100, L500.4050 ####[facility] [address] [place], [address] RDW SD 42.1 fl Normal 35.1-43.9 [facility] Comment on above: Performed By: #### L 501.0900, L100.0100, L500.4050 ####[facility] [address] [place], [address] WBC (Bld) [#/Vol] 10.3 10*3/uL Normal 4.4-11.0 [facility] Comment on above: Performed By: #### L 501.0900, L100.0100, L500.4050 ####[facility] [address] [place], [address] Carbon dioxide, total [Moles /volume] in Central venous bloodOrdered By: Niya Alicea on 04-18-2025 CO2 [Moles/Vol] 20.9 mmol/L Low 21.0-32.0 [facility] Chloride assayOrdered By: Abiel Alicea on 04-18-2025 Chloride [Moles/Vol] 104 mmol/L 98-108 [facility] Comprehensive Metabolic Prof ilon 04-18-2025 Albumin [Mass/Vol] 3.3 g/dL Low 3.5-5.0 [facility] Comment on above: Performed By: #### L 501.0900, L100.0100, L500.4050 ####[facility] [address] [place], [address] Albumin/Globulin [Mass ratio] 1.1 {ratio} Normal 0.9-2.4 [facility] Comment on above: Performed By: #### L 501.0900, L100.0100, L500.4050 ####[facility] [address] [place], [address] ALK PHOS 157 U/L High 35-104 [facility] Comment on above: Performed By: #### L 501.0900, L100.0100, L500.4050 ####[facility] [address] [place], [address] ALT [Catalytic activity/Vol] 9 U/L Normal <=34 [facility] Comment on above: Performed By: #### L 501.0900, L100.0100, L500.4050 ####[facility] [address] [place], [address] AST [Catalytic activity/Vol] 19 U/L Normal <=31 [facility] Comment on above: Performed By: #### L 501.0900, L100.0100, L500.4050 ####[facility] [address] [place], [address] Bilirubin [Mass/Vol] 0.23 mg/dL Normal 0.00-1.30 [facility] Comment on above: Performed By: #### L 501.0900, L100.0100, L500.4050 ####[facility] [address] [place], [address] BUN/CRE 5.7 RATIO Low 10-20 [facility] Comment on above: Performed By: #### L 501.0900, L100.0100, L500.4050 ####[facility] [address] [place], [address] Calcium [Mass/Vol] 9.5 mg/dL Normal 7.6-11.0 [facility] Comment on above: Performed By: #### L 501.0900, L100.0100, L500.4050 ####[facility] [address] [place], [address] Chloride [Moles/Vol] 104 mmol/L Normal 98-108 [facility] Comment on above: Performed By: #### L 501.0900, L100.0100, L500.4050 ####[facility] [address] [place], [address] CO2 [Moles/Vol] 20.9 mmol/L Low 21.0-32.0 [facility] Comment on above: Performed By: #### L 501.0900, L100.0100, L500.4050 ####[facility] [address] [place], [address] Creatinine [Mass/Vol] 0.66 mg/dL Low 0.70-1.20 [facility] Comment on above: Performed By: #### L 501.0900, L100.0100, L500.4050 ####[facility] [address] [place], [address] GAP 11 Normal 5-15 [facility] Comment on above: Performed By: #### L 501.0900, L100.0100, L500.4050 ####[facility] [address] [place], [address] GFR/1.73 sq M.predicted among non-blacks MDRD (S/P/Bld) [Vol rate/Area] 117 mL/min/{1.73_m2} Normal >60 [facility] Comment on above: Result Comment: mL/m in/1.73m2 CKD-EPI Creatinine Equation (2020) Performed By: #### L 501.0900, L100.0100, L500.4050 ####[facility] [address] [place], [address] Globulin (S) [Mass/Vol] 3.1 g/dL Normal 2.2-4.2 [facility] Comment on above: Performed By: #### L 501.0900, L100.0100, L500.4050 ####[facility] [address] [place], [address] Glucose [Mass/Vol] 86 mg/dL Normal 70-99 [facility] Comment on above: Performed By: #### L 501.0900, L100.0100, L500.4050 ####[facility] [address] [place], [address] Potassium [Moles/Vol] 3.9 mmol/L Normal 3.3-5.1 [facility] Comment on above: Performed By: #### L 501.0900, L100.0100, L500.4050 ####[facility] [address] [place], [address] Sodium [Moles/Vol] 135 mmol/L Normal 133-145 [facility] Comment on above: Performed By: #### L 501.0900, L100.0100, L500.4050 ####[facility] [address] [place], [address] T PROT 6.4 g/dL Normal 5.9-8.4 [facility] Comment on above: Performed By: #### L 501.0900, L100.0100, L500.4050 ####[facility] [address] [place], [address] Urea nitrogen [Mass/Vol] 4 mg/dL Normal 4-19 [facility] Comment on above: Performed By: #### L 501.0900, L100.0100, L500.4050 ####[facility] [address] [place], [address] Eosinophil percentageOrdered By: Niya Alicea on 04-18-2025 Eosinophils/100 WBC (Bld) 1.3 % 0-5 [facility] Erythrocyte distribution wid th ratioOrdered By: Niya Alicea on 04-18-2025 Erythrocyte distribution width (RBC) [Ratio] 13.7 % 11.6-14.6 [facility] Erythrocyte distribution wid th standard deviationOrdered By: Niya Alicea on 04-18-2025 Erythrocyte distribution width (RBC) [Ratio] 42.1 fl 35.1-43.9 [facility] Glomerular filtration rate ( GFR) estimation/1.73 sq m using serum, plasma, or whole bOrdered By: Niya Alicea on 04-18-2025 GFR/1.73 sq M.predicted among non-blacks MDRD (S/P/Bld) [Vol rate/Area] 117 mL/min/{1.73_m2} >60 [facility] Comment on above: mL/min/1.73m2 CKD-EP I Creatinine Equation (2020) Hematocrit Auto (Bld) [Volum e fraction]Ordered By: Niya Alicea on 04-18-2025 Hematocrit (Bld) [Volume fraction] 36.6 % Low 37-47 [facility] Hemoglobin measurementOrdere d By: Niya Alicea on 04-18-2025 Hemoglobin (Bld) [Mass/Vol] 12.6 g/dL 12.0-15.0 [facility] Immature granulocytes/100 WB C Auto (Bld)Ordered By: Niya Alicea on 04-18-2025 Immature granulocytes/100 WBC (Bld) 1.500 % High 0.0-0.9 [facility] Comment on above: IG% - Immature Granu locytes (promyelocytes, myelocytes and metamyelocytes) > 1% indicates that a LEFT SHIFT is Present. Laboratory - Chemistry and C hemistry - challengeOrdered By: Niya Alicea on 04-18-2025 AST [Catalytic activity/Vol] 19 U/L <32 [facility] Glucose Ql (U) Negative [facility] Laboratory - UrinalysisOrder ed By: Niya Alicea on 04-18-2025 Protein Ql (U) Negative [facility] MCV (mean corpuscular volume ) determinationOrdered By: Niya Alicea on 04-18-2025 MCV (RBC) [Entitic vol] 84.3 fL 81-99 [facility] Mean corpuscular hemoglobin (MCH) determinationOrdered By: Niya Alicea on 04-18-2025 MCH (RBC) [Entitic mass] 29.0 pg 27.0-32.0 [facility] Mean corpuscular hemoglobin concentration (MCHC) determinationOrdered By: Niya Alicea on 04-18-2025 MCHC (RBC) [Mass/Vol] 34.4 g/dL 32-36 [facility] Mean platelet volume determi nationOrdered By: Niya Alicea on 04-18-2025 Platelet mean volume (Bld) [Entitic vol] 9.5 fL 6.2-12.0 [facility] Monocyte percentageOrdered B y: Niya Alicea on 04-18-2025 Monocytes/100 WBC (Bld) 7.8 % 0-10 [facility] Neutrophil percentageOrdered By: Niya Alicea on 04-18-2025 Neutrophils/100 WBC (Bld) 69.4 % 47-70 [facility] Nucleated red blood cell per centageOrdered By: Niya Alicea on 04-18-2025 Nucleated RBC/100 WBC (Bld) [Ratio] 0 % 0-5 [facility] Administrative Job Titles Office Visit Reporton 04-18-2025 Administrative Job Titles Office Visit Report [facility] [address], [address] [place] [address] OFFICE VISIT Date of Service: 04/18/25 MR#: [id number] Acct: [id number] Name: KIRK CARVALHO Rep #: [id number] : 1990 Provider: ASHUTOSH Davenport ams Age/Sex: 34/F [place] [facility] [place]: Signed Intake Vital Signs 10/31/24 11:22 04/04/25 10:13 04/18/25 10:03 Height 5 ft 5 ft 5 ft Weight: 191 lb 4 oz BMI 37.3 BP 125/74 H Intake Visit Reasons: 36 wk ob Chief Complaint: 36wk OB 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 Is patient in pain?: No Allergies Penicillins Allergy (Verified 04/18/25 10:01) Vomiting Medications ???Medication ???Instructions ???Recorded ???Confirmed ???Type ivowpnwv-khy-Lv-FA 1 mg 1 tab PO DAILY 09/16/22 04/18/25 History tablet cholecalciferol (vitamin D3) 25 25 mcg PO QDAY 09/21/24 04/18/25 H istory mcg (1,000 unit) capsule Last Menstrual Period: 08/08/24 : No Have you fallen in the past year?: No PFSH PFSH Family History Mother Endometriosis Lupus Social History adopted: No household members: spouse and children number of children: 1 current occupation: [employer] current occupational exposures/hazards: No pets and animals: Yes history of recent travel: No sexually active: Yes Smoking Status: Never smoker alcohol intake: never substance use type: does not use well-balanced diet: daily or most days caffeine: Yes Type: carbonated beverages Number of servings: 1 eating out: rarely or never during the past year weight has: increased > 10 lbs what type of physical activity do you participate in: walking frequency: 1-2 times per week duration: < 15 minutes/day seatbelt use: always do you feel safe at home: Yes 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 Date Name GA/Weeks Outcome Route Bth Weight Gen Labor Lgth Anesthesia Del Locatn Provider FOB 09/16/22 Tisha 41 live - full term 7lbs Female none [facility] Jg Mcdonald [place] HPI 36 wk ob Details: KIRK CARVALHO is a 34 year old who presents for routine OB visit. OB Visit JUAN Calculator Estimated Delivery Date Method Current WG Current Estimate 05/15/25 LMP (Uncertain) 36w 1d Other Estimates 05/13/25 Ultrasound #1 36w 3d Expected Delivery Route/Plan Labor Preferences- CB/BF classes: [] labor support person: [] labor intervention preferences: [] pain management options preferred: [] cut cord/dad catch: [] : [] PP control planned: [] discussed possible routes of delivery and associated risks: [] special requests: [] Specific Issue/Plans Covid status: [] Flu vaccine: given Tdap vaccine: [] Rhogam: given 11/29/24(spotting) LARC form signed: [] Problem list reviewed and updated with the most current plan of care details and appropriate orders placed. Relevant counseling for the gestational age provided. Continue routine care and follow up unless otherwise noted in visit notes/problem list details Initial Weight: 176 lb Date -???-???-???-???-??? -???-???-???-???-??? -???-???- EGA Weight BP Urine Prot -???-???-???-???-??? -???-???-???-???-??? -???-???- Glucose FHR FuHt Pres Dilation -???-???-???-???-??? -???-???-???-???-??? -???-???- Effaced St Visit Note 10/03/24 -???-???-???-???-??? -???-???-???-???-??? -???-???- 8w 0d 176 lb 8 oz (+8 oz) 133/78 -???-???-???-???-??? -???-???-???-???-??? -???-???- 180 -???-???-???-???-??? -???-???-???-???-??? -???-???- KW- CRL cons with dates. Declines NIPT. 10/31/24 -???-???-???-???-??? -???-???-???-???-??? -???-???- 12w 0d 178 lb 6 oz (+2 lb 6 oz) 112/76 Negative -???-???-???-???-??? -???-???-???-???-??? -???-???- Negative 165 -???-???-???-???-??? -???-???-???-???-??? -???-???- JV- no lof, vaginal bleeding, or cramping. anatomy scan ordered 11/29/24 -???-???-???-???-??? -???-???-???-???-??? -???-???- 16w 1d 177 lb 8 oz (+1 lb 8 oz) 124/78 Negative -???-???-???-???-??? -???-???-???-???-??? -???-???- Negative 148 -???-???-???-???-??? -???-???-???-???-??? -???-???- -Had episo de light spotting just over a week ago. T S plus rhogam today. Feeling flutters. Flu vaccine given. 12/27/24 -???-???-???-???-??? -???-???-???-???-??? -???-???- 20w 1d 178 lb 8 oz (+2 lb 8 oz) 103/64 Negative -???-???-???-???-??? -???-???-???-???-??? -???-???- Negative 150 -???-???-???-???-??? -???-???-???-???-??? -???-???- JV- no lof, vaginal ble (more content not included)... Normal [facility] Platelet countOrdered By: Abiel Alicea on 04-18-2025 Platelets (Bld) [#/Vol] 315 10*3/uL 150-450 [facility] Potassium measurement (mass/ volume)Ordered By: Niya Alicea on 04-18-2025 Potassium (Unsp spec) [Mass/Vol] 3.9 mmol/L 3.3-5.1 [facility] Protein+Creatinine Ratio,Uri neon 04-18-2025 PROT:CRE RATIO UNABLE TO CALCULATE Normal 0-200 [facility] Comment on above: Performed By: #### L 501.0900, L100.0100, L500.4050 ####[facility] [address] [place], [address] PROTEIN,UR.RAN. < 6.0 Normal 0.0-12.0 [facility] Comment on above: Performed By: #### L 501.0900, L100.0100, L500.4050 ####[facility] [address] [place], [address] UR CREAT 19.40 mg/dL Low 28.00-217.00 [facility] Comment on above: Performed By: #### L 501.0900, L100.0100, L500.4050 ####[facility] [address] [place], [address] RBC Auto (Bld) [#/Vol]Ordere d By: Niya Alicea on 04-18-2025 RBC (Bld) [#/Vol] 4.34 10*6/uL 4.2-5.4 [facility] Random urine creatinine elmer urement (mass/volume)Ordered By: Niya Alicea on 04-18-2025 Creatinine Unsp time (U) [Mass/Vol] 19.40 mg/dL Low 28.00-217.00 [facility] Serum creatinine measurement (mass/volume)Ordered By: Niya Alicea on 04-18-2025 Creatinine [Mass/Vol] 0.66 mg/dL Low 0.70-1.20 [facility] Serum globulin measurementOr dered By: Niya Alicea on 04-18-2025 Globulin (S) [Mass/Vol] 3.1 g/dL 2.2-4.2 [facility] Serum glucose measurement (m ass/volume)Ordered By: Niya Alicea on 04-18-2025 Glucose [Mass/Vol] 86 mg/dL 70-99 [facility] Serum or plasma alanine gardner otransferase (ALT) measurementOrdered By: Niya Alicea on 04-18-2025 ALT [Catalytic activity/Vol] 9 U/L <35 [facility] Serum or plasma albumin elmer urement (mass/volume)Ordered By: Niya Alicea on 04-18-2025 Albumin [Mass/Vol] 3.3 g/dL Low 3.5-5.0 [facility] Serum or plasma albumin/glob ulin mass ratioOrdered By: Niya Alicea on 04-18-2025 Albumin/Globulin [Mass ratio] 1.1 {ratio} 0.9-2.4 [facility] Serum or plasma alkaline toshia sphatase measurementOrdered By: Niya Alicea on 04-18-2025 ALP [Catalytic activity/Vol] 157 U/L High 35-104 [facility] Serum or plasma calcium elmer urement (mass/volume)Ordered By: Niya Alicea on 04-18-2025 Calcium [Mass/Vol] 9.5 mg/dL 7.6-11.0 [facility] Serum or plasma urea nitroge n measurement (mass/volume)Ordered By: Niya Alicea on 04-18-2025 Urea nitrogen [Mass/Vol] 4 mg/dL 4-19 [facility] Sodium levelOrdered By: Lizy Alicea on 04-18-2025 Sodium [Moles/Vol] 135 mmol/L 133-145 [facility] Total proteinOrdered By: Domenic Alicea on 04-18-2025 Protein [Mass/Vol] 6.4 g/dL 5.9-8.4 [facility] Urine protein measurement (m ass/volume)Ordered By: Niya Alicea on 04-18-2025 Protein (U) [Mass/Vol] mg/dL 0.0-12.0 [facility] Urine protein/creatinine mas s ratioOrdered By: Niya Alicea on 04-18-2025 Protein/Creatinine (U) [Mass ratio] UNABLE TO CALCULATE mg/g CRE 0-200 [facility] White blood cell (WBC) count Ordered By: Niya Alicea on 04-18-2025 WBC (Bld) [#/Vol] 10.3 10*3/uL 4.4-11.0 [facility] OB Limited With Biometricson 04-17-2025 OB Limited With Biometrics [facility] Services [address] [place] [id number] OB Limited With Biometrics MR#: [id number] Acct: [id number] Name: KIRK CARVALHO Rep #: [id number] : 1990 F 34 From: Dio Stratton MD PCP: Care Physician,No Primary Status: REG CLI Study: OB Limited With Biometrics Date of Exam: 04/17 Exam# [id number] Ordering Dr: Ayaka Lozano PROCEDURE: OB LIMITED WITH BIOMETRICS 04/17/2025 REASON FOR EXAM: GROWTH TECHNIQUE: High resolution obstetric ultrasound performed using a 2D transducer. Standard views obtained, including biometry, anatomy survey, and Doppler studies. COMPARISON: None. FINDINGS Number: 1 Position: Cephalic. Placental Position: Anterior. Placental Abnormalities: Nonvisualized. DIMENSIONS: Biparietal Diameter: 35 weeks 2 days/38% Head Circumference: 38 weeks 4 days/86% Abdominal Circumference: 37 weeks 1 day/46% Femur Length: 36 weeks 2 days/60% ESTIMATED WEIGHT: 2772 g +/-416 g ESTIMATED WEIGHT PERCENTILE (24+ weeks): 46% age by current ultrasound of 36 weeks and 2 days. JUAN by current ultrasound of 05/13/2025. age by LMP of 36 weeks and 0 days. JUAN by LMP of 05/15/2025. BIOPHYSICAL ASSESSMENT: Maximum vertical pocket of 7.3 cm. Amniotic Fluid Index: 19.4 cm (8-24 cm normal range) Cardiac Motion: 120 beats per minute. (Average) Trunk and Limb Motion: Present. MATERNAL ANATOMY: Adnexa: No visualized abnormalities. Cervical Length (if measured): Not visualized. US/OB Limited With Biometrics IMPRESSION: Single live intrauterine as above. Reading Location: [place] [address] CC: Dr. 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 Normal [facility] Laboratory - Chemistry and C hemistry - challengeOrdered By: Ayaka Lzoano on 04-04-2025 Glucose Ql (U) Negative [facility] Laboratory - UrinalysisOrder ed By: Ayaka Lozano on 04-04-2025 Protein Ql (U) Negative [facility] Administrative Job Titles Office Visit Reporton 04-04-2025 Administrative Job Titles Office Visit Report [facility]'s [address], [address] [place] [address] OFFICE VISIT Date of Service: 04/04/25 MR#: [id number] Acct: [id number] Name: KIRK CARVALHO Rep #: [id number] : 1990 Provider: Dr. Ayaka carpenter MD Age/Sex: 34/F Location: [facility] Status: Signed Intake Vital Signs 10/31/24 11:22 03/29/25 11:58 04/04/25 10:07 04/04/25 10:13 Height 5 ft 5 ft 5 ft 5 ft Weight: 187 lb BMI 36.5 BP 97/66 Intake Visit Reasons: 34 wk ob 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 Is patient in pain?: No Allergies Penicillins Allergy (Verified 04/04/25 10:08) Vomiting Medications ???Medication ???Instructions ???Recorded ???Confirmed ???Type oifveamk-jwd-Qz-FA 1 mg 1 tab PO DAILY 09/16/22 04/04/25 History tablet cholecalciferol (vitamin D3) 25 25 mcg PO QDAY 09/21/24 04/04/25 H istory mcg (1,000 unit) capsule Last Menstrual Period: 08/08/24 Zika: Zika virus screening: Negative : No PFSH PFSH Family History Mother Endometriosis Lupus Social History adopted: No household members: spouse and children number of children: 1 current occupation: [employer] current occupational exposures/hazards: No pets and animals: Yes history of recent travel: No sexually active: Yes Smoking Status: Never smoker alcohol intake: never substance use type: does not use well-balanced diet: daily or most days caffeine: Yes Type: carbonated beverages Number of servings: 1 eating out: rarely or never during the past year weight has: increased > 10 lbs what type of physical activity do you participate in: walking frequency: 1-2 times per week duration: < 15 minutes/day seatbelt use: always do you feel safe at home: Yes 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 Date Name GA/Weeks Outcome Route Bth Weight Infant Gen Labor Lgth Anesthesia Del Locatn Provider FOB 09/16/22 Tisha 41 live - full term 7lbs Female none [facility] Jg Doshi HPI 34 wk ob Details: KIRK CARVALHO is a 34 year old who presents for routine OB visit. OB Visit JUAN Calculator Estimated Delivery Date Method Current WG Current Estimate 05/15/25 LMP (Uncertain) 34w 1d Other Estimates 05/13/25 Ultrasound #1 34w 3d Expected Delivery Route/Plan Labor Preferences- CB/BF classes: [] labor support person: [] labor intervention preferences: [] pain management options preferred: [] cut cord/dad catch: [] : [] PP control planned: [] discussed possible routes of delivery and associated risks: [] special requests: [] Specific Issue/Plans Covid status: [] Flu vaccine: given Tdap vaccine: [] Rhogam: given 11/29/24(spotting) LARC form signed: [] Problem list reviewed and updated with the most current plan of care details and appropriate orders placed. Relevant counseling for the gestational age provided. Continue routine care and follow up unless otherwise noted in visit notes/problem list details Initial Weight: 176 lb Date -???-???-???-???-??? -???-???-???-???-??? -???-???- EGA Weight BP Urine Prot -???-???-???-???-??? -???-???-???-???-??? -???-???- Glucose FHR FuHt Pres Dilation -???-???-???-???-??? -???-???-???-???-??? -???-???- Effaced St Visit Note 10/03/24 -???-???-???-???-??? -???-???-???-???-??? -???-???- 8w 0d 176 lb 8 oz (+8 oz) 133/78 -???-???-???-???-??? -???-???-???-???-??? -???-???- 180 -???-???-???-???-??? -???-???-???-???-??? -???-???- KW- CRL cons with dates. Declines NIPT. 10/31/24 -???-???-???-???-??? -???-???-???-???-??? -???-???- 12w 0d 178 lb 6 oz (+2 lb 6 oz) 112/76 Negative -???-???-???-???-??? -???-???-???-???-??? -???-???- Negative 165 -???-???-???-???-??? -???-???-???-???-??? -???-???- JV- no lof, vaginal bleeding, or cramping. anatomy scan ordered 11/29/24 -???-???-???-???-??? -???-???-???-???-??? -???-???- 16w 1d 177 lb 8 oz (+1 lb 8 oz) 124/78 Negative -???-???-???-???-??? -???-???-???-???-??? -???-???- Negative 148 -???-???-???-???-??? -???-???-???-???-??? -???-???- MH-Had episo de light spotting just over a week ago. T S plus rhogam today. Feeling flutters. Flu vaccine given. 12/27/24 -???-???-???-???-??? -???-???-???-???-??? -???-???- 20w 1d 178 lb 8 oz (+2 lb 8 oz) 103/64 Negative -???-???-???-???-??? -???-???-???-???-??? -???-???- Negative 150 -???-???-???-???-??? -???-???-???-???-??? -???-???- JV- no lof, vaginal ble (more content not included)... Normal [facility] Ankle min 3 Viewson 03-29-20 Ankle min 3 Views [facility] Imaging Services [address] [place] [address] Ankle min 3 Views MR#: [id number] Acct: [id number] Name: KIRK CARVALHO Rep #: [id number] : 1990 F 34 From: Charly Barragan PCP: Care Physician,No Primary Status: REG ER Study: Ankle min 3 Views Date of Exam: 03/29/25 Exam# [id number] Ordering Dr: Hector Abrams DO PROCEDURE: ANKLE MIN 3 VIEWS 03/29/2025 REASON FOR EXAM: PAIN. Injury. TECHNIQUE: 3 views of the left ankle COMPARISON: None. RAD/Ankle min 3 Views IMPRESSION: On the lateral view, a moderate inferior calcaneal spur is seen. Normal contour of the Achilles tendon is noted. No ankle joint effusion is identified. Satisfactory osseous alignment is seen throughout. No acute fracture or dislocation is seen. If clinical concern persists, short-term follow-up imaging may be obtained to rule out a currently occult fracture. Reading Location: [place] [address] CC: Dr. 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 She was going down the stairs when she missed stepped and twisted her left ankle. She is currently 7 months , she is G2, P1, she denies any injury to her abdomen, abdominal pain, or vaginal bleeding. She is having a difficult time bearing weight onto her LLE due to the pain. She has not yet taken anything for pain. PFSH PFSH Home Medications ???Medication ???Instructions ???Recorded ???Last Taken ???Type khwrvvyc-uye-Zv-FA 1 mg 1 tab PO DAILY 09/16/22 Unknown History tablet cholecalciferol (vitamin D3) 25 25 mcg PO QDAY 09/21/24 Unknown Hi story mcg (1,000 unit) capsule Allergy/AdvReac Type Severity Reaction Status Date / Time Penicillins Allergy Vomiting Verified 03/29/25 11:57 Family History Mother Endometriosis Lupus Social History adopted: No household members: spouse and children number of children: 1 current occupation: [employer] current occupational exposures/hazards: No pets and animals: Yes history of recent travel: No sexually active: Yes Smoking Status: Never smoker alcohol intake: never substance use type: does not use well-balanced diet: daily or most days caffeine: Yes Type: carbonated beverages Number of servings: 1 eating out: rarely or never during the past year weight has: increased > 10 lbs what type of physical activity do you participate in: walking frequency: 1-2 times per week duration: < 15 minutes/day seatbelt use: always do you feel safe at home: Yes additional social history: : [employer] ROS ROS ED Gastrointestinal Gastrointestinal: Denies abdominal pain Musculoskeletal Musculoskeletal: Reports arthralgias Integumentary Denies Abrasions Neurologic Neurologic: Denies paresthesias EXAM Physical Exam Const Vital Signs: 03/29/25 11:58 Temperature 98 F Temperature Source Oral Pulse Rate 94 Respiratory Rate 19 H Blood Pressure 98/64 Blood Pressure Mean 75 Pulse Ox 99 Oxygen Delivery Method Room Air Positive well nourished, well developed and no apparent distress General Appearance ED: well developed HEENT Reports normocephalic and head/scalp atraumatic Mouth ED: Yes moist mucous membranes normal Eyes PERRL and EOMs intact bilaterally Neck full ROM and supple Chest Wall inspection of chest normal Resp normal respiratory effort and clear to auscultation bilaterally Cardio regular rate and regular rhythm Back/Spine normal ROM and normal to inspection Extremity normal to inspection and full ROM Extremity Narrative: pain to palpation to the left lateral malleolus, pain to the ATFL, minimal pain across the dorsal aspect of the midfoot. No proximal fibular tenderness. No tenderness to the head or base of the fifth metatarsal. Left DP pulse 2+, good cap refill, sensation intact. No bruising, she has mild swelling to the left ankle. Neuro moves all extremities, no focal motor deficits and no sensory deficits noted Sensorium / Orientation: awake and alert Psych mental status grossly normal and thought process normal Skin no rashes or lesions noted and no wounds Physical Exam Const Vital Signs: 03/29/25 11:58 Temperature 98 F Temperature Source Oral Pulse Rate 94 Respiratory Rate 19 H Blood Pressure 98/64 Blood Pressure Mean 75 Pulse Ox 99 Oxygen Delivery Method Room Air MDM MDM MDM Narrative Medical decision making narrative: Patient presenting today with pain to her left ankle after tripping down a few steps this afternoon. No other injury occurred. She is currently 7 months but denies injuring her abdomen, she has no abdominal pain. No significant edema to the left ankle, she has pain to the left lateral malleolus, she reports mild pain across the dorsum of her foot, ankle x-ray obtained and is negative for fracture. Metatarsal view on x-ray does not show fracture. I did offer analgesia and she declined. Radiography X-Ray: Read by ED Physician Diagnostic Testing: Clinical Impression(s) from Imaging Studies Ankle X-Ray 03/29/25 12:09 IMPRESSION: On the lateral view, a moderate inferior calcaneal spur is seen. (more content not included)... Normal [facility] Laboratory - Chemistry and C hemistry - challengeOrdered By: Niya Alicea on 03-21-2025 Glucose Ql (U) Negative [facility] Laboratory - UrinalysisOrder ed By: Niya Alicea on 03-21-2025 Protein Ql (U) Negative [facility] Administrative Job Titles Office Visit Reporton 03-21-2025 Administrative Job Titles Office Visit Report [facility]'s [address], [address] [place] [id number] OFFICE VISIT Date of Service: 03/21/25 MR#: [id number] Acct: [id number] Name: KIRK CARVALHO Rep #: [id number] : 1990 Provider: ASHUTOSH Davenport ams Age/Sex: 34/F [place] [facility] [place]: Signed Intake Vital Signs 10/31/24 11:22 03/07/25 10:01 03/21/25 09:58 Height 5 ft 5 ft 5 ft Weight: 186 lb 4 oz BMI 36.3 BP 116/78 Intake Visit Reasons: 32 wk ob Chief Complaint: 32wk OB 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 Is patient in pain?: No Allergies Penicillins Allergy (Verified 03/21/25 09:59) Vomiting Medications ???Medication ???Instructions ???Recorded ???Confirmed ???Type tqgnkrou-gro-Ai-FA 1 mg 1 tab PO DAILY 09/16/22 03/21/25 History tablet cholecalciferol (vitamin D3) 25 25 mcg PO QDAY 09/21/24 03/21/25 H istory mcg (1,000 unit) capsule Last Menstrual Period: 08/08/24 : No Have you fallen in the past year?: No PFSH PFSH Family History Mother Endometriosis Lupus Social History adopted: No household members: spouse and children number of children: 1 current occupation: [employer] current occupational exposures/hazards: No pets and animals: Yes history of recent travel: No sexually active: Yes Smoking Status: Never smoker alcohol intake: never substance use type: does not use well-balanced diet: daily or most days caffeine: Yes Type: carbonated beverages Number of servings: 1 eating out: rarely or never during the past year weight has: increased > 10 lbs what type of physical activity do you participate in: walking frequency: 1-2 times per week duration: < 15 minutes/day seatbelt use: always do you feel safe at home: Yes 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 Date Name GA/Weeks Outcome Route Bth Weight Gen Labor Lgth Anesthesia Del Locatn Provider FOB 09/16/22 Tisha 41 live - full term 7lbs Female none [facility] Jg Mcdonald [employer] HPI 32 wk ob Details: KIRK CARVALHO is a 34 year old who presents for routine OB visit. OB Visit JUAN Calculator Estimated Delivery Date Method Current WG Current Estimate 05/15/25 LMP (Uncertain) 32w 1d Other Estimates 05/13/25 Ultrasound #1 32w 3d Expected Delivery Route/Plan Labor Preferences- CB/BF classes: [] labor support person: [] labor intervention preferences: [] pain management options preferred: [] cut cord/dad catch: [] : [] PP control planned: [] discussed possible routes of delivery and associated risks: [] special requests: [] Specific Issue/Plans Covid status: [] Flu vaccine: given Tdap vaccine: [] Rhogam: given 11/29/24(spotting) LARC form signed: [] Problem list reviewed and updated with the most current plan of care details and appropriate orders placed. Relevant counseling for the gestational age provided. Continue routine care and follow up unless otherwise noted in visit notes/problem list details Initial Weight: 176 lb Date -???-???-???-???-??? -???-???-???-???-??? -???-???- EGA Weight BP Urine Prot -???-???-???-???-??? -???-???-???-???-??? -???-???- Glucose FHR FuHt Pres Dilation -???-???-???-???-??? -???-???-???-???-??? -???-???- Effaced St Visit Note 10/03/24 -???-???-???-???-??? -???-???-???-???-??? -???-???- 8w 0d 176 lb 8 oz (+8 oz) 133/78 -???-???-???-???-??? -???-???-???-???-??? -???-???- 180 -???-???-???-???-??? -???-???-???-???-??? -???-???- KW- CRL cons with dates. Declines NIPT. 10/31/24 -???-???-???-???-??? -???-???-???-???-??? -???-???- 12w 0d 178 lb 6 oz (+2 lb 6 oz) 112/76 Negative -???-???-???-???-??? -???-???-???-???-??? -???-???- Negative 165 -???-???-???-???-??? -???-???-???-???-??? -???-???- JV- no lof, vaginal bleeding, or cramping. anatomy scan ordered 11/29/24 -???-???-???-???-??? -???-???-???-???-??? -???-???- 16w 1d 177 lb 8 oz (+1 lb 8 oz) 124/78 Negative -???-???-???-???-??? -???-???-???-???-??? -???-???- Negative 148 -???-???-???-???-??? -???-???-???-???-??? -???-???- MH-Had episo de light spotting just over a week ago. T S plus rhogam today. Feeling flutters. Flu vaccine given. 12/27/24 -???-???-???-???-??? -???-???-???-???-??? -???-???- 20w 1d 178 lb 8 oz (+2 lb 8 oz) 103/64 Negative -???-???-???-???-??? -???-???-???-???-??? -???-???- Negative 150 -???-???-???-???-??? -???-???-???-???-??? -???-???- JV- no lof, vaginal bleed (more content not included)... Normal [facility] Laboratory - Chemistry and C hemistry - challengeOrdered By: Aarti Davis on 03-07-2025 Glucose Ql (U) Negative [facility] Laboratory - UrinalysisOrder ed By: Aarti Davis on 03-07-2025 Protein Ql (U) Negative [facility] Administrative Job Titles Office Visit Reporton 03-07-2025 Administrative Job Titles Office Visit Report [facility]'s [address], [address] [place] [address] OFFICE VISIT Date of Service: 03/07/25 MR#: [id number] Acct: [id number] Name: KIRK CARVALHO PAVEL Rep #: [id number] : 1990 Provider: Dr. Aarti Bush, Age/Sex: 34/F [place] [facility] [place]: Signed Intake Vital Signs 10/31/24 11:22 02/21/25 15:14 03/07/25 10:01 Height 5 ft 5 ft 5 ft Weight: 186 lb BMI 36.3 BP 102/64 Intake Visit Reasons: 30 wk ob Chief Complaint: 30 Week OB 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 Is patient in pain?: No Allergies Penicillins Allergy (Verified 03/07/25 10:04) Vomiting Medications ???Medication ???Instructions ???Recorded ???Confirmed ???Type jgowofye-ghx-Ni-FA 1 mg 1 tab PO DAILY 09/16/22 03/07/25 History tablet cholecalciferol (vitamin D3) 25 25 mcg PO QDAY 09/21/24 03/07/25 H istory mcg (1,000 unit) capsule Last Menstrual Period: 08/08/24 Zika: Zika virus screening: Negative : No PFSH PFSH Family History Mother Endometriosis Lupus Social History adopted: No household members: spouse and children number of children: 1 current occupation: [employer] current occupational exposures/hazards: No pets and animals: Yes history of recent travel: No sexually active: Yes Smoking Status: Never smoker alcohol intake: never substance use type: does not use well-balanced diet: daily or most days caffeine: Yes Type: carbonated beverages Number of servings: 1 eating out: rarely or never during the past year weight has: increased > 10 lbs what type of physical activity do you participate in: walking frequency: 1-2 times per week duration: < 15 minutes/day seatbelt use: always do you feel safe at home: Yes 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 Date Name GA/Weeks Outcome Route Bth Weight Infant Gen Labor Lgth Anesthesia Del Locatn Provider FOB 09/16/22 Tisha 41 live - full term 7lbs Female none [facility] Jg Doshi HPI 30 wk ob Details: KIRK CARVALHO is a 34 year old who presents for routine OB visit. OB Visit JUAN Calculator Estimated Delivery Date Method Current WG Current Estimate 05/15/25 LMP (Uncertain) 30w 1d Other Estimates 05/13/25 Ultrasound #1 30w 3d Expected Delivery Route/Plan Labor Preferences- CB/BF classes: [] labor support person: [] labor intervention preferences: [] pain management options preferred: [] cut cord/dad catch: [] : [] PP control planned: [] discussed possible routes of delivery and associated risks: [] special requests: [] Specific Issue/Plans Covid status: [] Flu vaccine: given Tdap vaccine: [] Rhogam: given 11/29/24(spotting) LARC form signed: [] Problem list reviewed and updated with the most current plan of care details and appropriate orders placed. Relevant counseling for the gestational age provided. Continue routine care and follow up unless otherwise noted in visit notes/problem list details Initial Weight: 176 lb Date -???-???-???-???-??? -???-???-???-???-??? -???-???- EGA Weight BP Urine Prot -???-???-???-???-??? -???-???-???-???-??? -???-???- Glucose FHR FuHt Pres Dilation -???-???-???-???-??? -???-???-???-???-??? -???-???- Effaced St Visit Note 10/03/24 -???-???-???-???-??? -???-???-???-???-??? -???-???- 8w 0d 176 lb 8 oz (+8 oz) 133/78 -???-???-???-???-??? -???-???-???-???-??? -???-???- 180 -???-???-???-???-??? -???-???-???-???-??? -???-???- KW- CRL cons with dates. Declines NIPT. 10/31/24 -???-???-???-???-??? -???-???-???-???-??? -???-???- 12w 0d 178 lb 6 oz (+2 lb 6 oz) 112/76 Negative -???-???-???-???-??? -???-???-???-???-??? -???-???- Negative 165 -???-???-???-???-??? -???-???-???-???-??? -???-???- JV- no lof, vaginal bleeding, or cramping. anatomy scan ordered 11/29/24 -???-???-???-???-??? -???-???-???-???-??? -???-???- 16w 1d 177 lb 8 oz (+1 lb 8 oz) 124/78 Negative -???-???-???-???-??? -???-???-???-???-??? -???-???- Negative 148 -???-???-???-???-??? -???-???-???-???-??? -???-???- MH-Had episo de light spotting just over a week ago. T S plus rhogam today. Feeling flutters. Flu vaccine given. 12/27/24 -???-???-???-???-??? -???-???-???-???-??? -???-???- 20w 1d 178 lb 8 oz (+2 lb 8 oz) 103/64 Negative -???-???-???-???-??? -???-???-???-???-??? -???-???- Negative 150 -???-???-???-???-??? -???-???-???-???-??? -???-???- JV- no l (more content not included)... Normal [facility] Absolute lymphocyte countOrd ered By: Ayaka Lozano on 02-21-2025 Lymphocytes Auto (Unsp spec) [#/Vol] 1.93 10*3/uL 0.83-4.51 [facility] Absolute neutrophil countOrd ered By: Ayaka Lozano on 02-21-2025 Neutrophils (Bld) [#/Vol] 9.3 10*3/uL High 2.0-7.7 [facility] Automated lymphocyte count a s percentage of total leukocytesOrdered By: Ayaka Lozano on 02-21-2025 Lymphocytes/100 WBC Auto (Unsp spec) 15.8 % Low 19-41 [facility] Basophil percentageOrdered B y: Ayaka Lozano on 02-21-2025 Basophils/100 WBC (Bld) 0.4 % 0-1 [facility] CBC W/Diff, Automatedon Absolute Lymph 1.93 X10 3/uL Normal 0.83-4.51 [facility] Comment on above: Performed By: #### L 3890.6006, L100.0100, M84905-5, BTS, L501.0250, L509.8002 #### [facility] [address] [place], [address] Absolute Neut 9.3 X10 3/uL High 2.0-7.7 [facility] Comment on above: Performed By: #### L 3890.6006, L100.0100, T03633-1, BTS, L501.0250, L509.8002 #### [facility] [address] [place], [address] Basophils/100 WBC (Bld) 0.4 % Normal 0-1 [facility] Comment on above: Performed By: #### L 3890.6006, L100.0100, H73353-2, BTS, L501.0250, L509.8002 #### [facility] [address] [place], [address] Eosinophils/100 WBC (Bld) 0.8 % Normal 0-5 [facility] Comment on above: Performed By: #### L 3890.6006, L100.0100, Z64437-3, BTS, L501.0250, L509.8002 #### [facility] [address] [place], [address] Erythrocyte distribution width (RBC) [Ratio] 13.5 % Normal 11.6-14.6 [facility] Comment on above: Performed By: #### L 3890.6006, L100.0100, U71888-9, BTS, L501.0250, L509.8002 #### [facility] [address] [place], [address] Hematocrit (Bld) [Volume fraction] 34.1 % Low 37-47 [facility] Comment on above: Performed By: #### L 3890.6006, L100.0100, V61489-3, BTS, L501.0250, L509.8002 #### [facility] [address] [place], [address] Hemoglobin (Bld) [Mass/Vol] 11.6 g/dL Low 12.0-15.0 [facility] Comment on above: Performed By: #### L 3890.6006, L100.0100, Y58432-2, BTS, L501.0250, L509.8002 #### [facility] [address] [place], [address] IG% 0.900 Normal 0.0-0.9 [facility] Comment on above: Result Comment: IG% - Immature Granulocytes (promyelocytes, myelocytes and metamyelocytes) > 1% indicates that a LEFT SHIFT is Present. Performed By: #### L 3890.6006, L100.0100, O74344-6, BTS, L501.0250, L509.8002 #### [facility] [address] [place], [address] Lymphocytes/100 WBC (Bld) 15.8 % Low 19-41 [facility] Comment on above: Performed By: #### L 3890.6006, L100.0100, B35490-7, BTS, L501.0250, L509.8002 #### [facility] [address] [place], [address] MCH (RBC) [Entitic mass] 29.1 pg Normal 27.0-32.0 [facility] Comment on above: Performed By: #### L 3890.6006, L100.0100, K75427-7, BTS, L501.0250, L509.8002 #### [facility] [address] [place], [address] MCHC (RBC) [Mass/Vol] 34.0 g/dL Normal 32-36 [facility] Comment on above: Performed By: #### L 3890.6006, L100.0100, N82560-7, BTS, L501.0250, L509.8002 #### [facility] [address] [place], [address] MCV (RBC) [Entitic vol] 85.7 fL Normal 81-99 [facility] Comment on above: Performed By: #### L 3890.6006, L100.0100, H01384-0, BTS, L501.0250, L509.8002 #### [facility] [address] [place], [address] Monocytes/100 WBC (Bld) 5.9 % Normal 0-10 [facility] [facility] Comment on above: Performed By: #### L 3890.6006, L100.0100, A52243-7, BTS, L501.0250, L509.8002 #### [facility] [address] [place], [address] Neutrophils/100 WBC (Bld) 76.2 % High 47-70 [facility] Comment on above: Performed By: #### L 3890.6006, L100.0100, O29248-5, BTS, L501.0250, L509.8002 #### [facility] [address] [place], [address] Nucleated RBC (Bld) [#/Vol] 0 10*3/uL Normal 0-5 [facility] Comment on above: Performed By: #### L 3890.6006, L100.0100, T78319-0, BTS, L501.0250, L509.8002 #### [facility] [address] [place], [address] Platelet mean volume (Bld) [Entitic vol] 9.6 fL Normal 6.2-12.0 [facility] Comment on above: Performed By: #### L 3890.6006, L100.0100, E03189-5, BTS, L501.0250, L509.8002 #### [facility] [address] [place], [address] Platelets (Bld) [#/Vol] 365 10*3/uL Normal 150-450 [facility] Comment on above: Performed By: #### L 3890.6006, L100.0100, D45409-3, BTS, L501.0250, L509.8002 #### [facility] [address] [place], [address] RBC (Bld) [#/Vol] 3.98 10*6/uL Low 4.2-5.4 [facility] Comment on above: Performed By: #### L 3890.6006, L100.0100, Z98674-6, BTS, L501.0250, L509.8002 #### [facility] [address] [place], [address] RDW SD 41.8 fl Normal 35.1-43.9 [facility] Comment on above: Performed By: #### L 3890.6006, L100.0100, I93897-8, BTS, L501.0250, L509.8002 #### [facility] [address] [place], [address] WBC (Bld) [#/Vol] 12.2 10*3/uL High 4.4-11.0 [facility] Comment on above: Performed By: #### L 3890.6006, L100.0100, S55417-9, BTS, L501.0250, L509.8002 #### [facility] [address] [place], [address] Eosinophil percentageOrdered By: Ayaka Lozano on 02-21-2025 Eosinophils/100 WBC (Bld) 0.8 % 0-5 [facility] Erythrocyte distribution wid th (RBC) [Ratio]Ordered By: Ayaka Lozano on 02-21-2025 Erythrocyte distribution width (RBC) [Entitic vol] 41.8 fL 35.1-43.9 [facility] Erythrocyte distribution wid th ratioOrdered By: Ayaka Lozano on 02-21-2025 Erythrocyte distribution width (RBC) [Ratio] 13.5 % 11.6-14.6 [facility] Erythrocyte distribution wid th standard deviationOrdered By: Ayaka Lozano on 02-21-2025 Erythrocyte distribution width (RBC) [Ratio] 41.8 fl 35.1-43.9 [facility] Glucose Challenge Gest 1H 50 abdullahi 02-21-2025 GLU GEST 50g 1H 124 mg/dL Normal 70-140 [facility] Comment on above: Performed By: #### L 3890.6006, L100.0100, S29106-9, BTS, L501.0250, L509.8002 ####[facility] [address] [place], [address] Glucose measurement at 2 omero rs post-dose gestational glucose tolerance testOrdered By: Ayaka Lozano on 02-21-2025 Glucose [Mass/Vol] 124 mg/dL 70-140 [facility] HIVon 02-21-2025 HIV Non-Reactive Normal Nonreactive [facility] Comment on above: Result Comment: Non- Reactive Reactive Repeatedly reactive samples must be confirmed according to CDC recommended confirmatory algorithms. The subresults for either HIVAG or AHIV can be used as an aid in the selection of the confirmation algorithm for reactive samples. Send out specimens with Reactive results to [facility] for confirmation. Order the HIV antibody detection and differentiation: lc#[id number] Performed By: #### L 3890.6006, L100.0100, S29686-0, BTS, L501.0250, L509.8002 ####[facility] [address] [place], [address] Hematocrit Auto (Bld) [Volum e fraction]Ordered By: Ayaka Lozano on 02-21-2025 Hematocrit (Bld) [Volume fraction] 34.1 % Low 37-47 [facility] Hemoglobin measurementOrdere d By: Ayaka Lozano on 02-21-2025 Hemoglobin (Bld) [Mass/Vol] 11.6 g/dL Low 12.0-15.0 [facility] Immature granulocytes/100 WB C Auto (Bld)Ordered By: Ayaka Lozano on 02-21-2025 Immature granulocytes/100 WBC (Bld) 0.900 % 0.0-0.9 [facility] Comment on above: IG% - Immature Granu locytes (promyelocytes, myelocytes and metamyelocytes) > 1% indicates that a LEFT SHIFT is Present. Laboratory - Chemistry and C hemistry - challengeOrdered By: Aarti Davis on 02-21-2025 Glucose Ql (U) Negative [facility] - UrinalysisOrder ed By: Aarti Davis on 02-21-2025 Protein Ql (U) Negative [facility] Lymphocytes Auto (Unsp spec) [#/Vol]Ordered By: Ayaka Lozano on 02-21-2025 Lymphocytes (Bld) [#/Vol] 1.93 10*3/uL 0.83-4.51 [facility] Lymphocytes/100 WBC Auto (Un sp spec)Ordered By: Ayaka Lozano on 02-21-2025 Lymphocytes/100 WBC (Bld) 15.8 % Low 19-41 [facility] MCV (mean corpuscular volume ) determinationOrdered By: Ayaka Lozano on 02-21-2025 MCV (RBC) [Entitic vol] 85.7 fL 81-99 [facility] Mean corpuscular hemoglobin (MCH) determinationOrdered By: Ayaka Lozano on 02-21-2025 MCH (RBC) [Entitic mass] 29.1 pg 27.0-32.0 [facility] Mean corpuscular hemoglobin concentration (MCHC) determinationOrdered By: Ayaka Lozano on 02-21-2025 MCHC (RBC) [Mass/Vol] 34.0 g/dL 32-36 [facility] Mean platelet volume determi nationOrdered By: Ayaka Lozano on 02-21-2025 Platelet mean volume (Bld) [Entitic vol] 9.6 fL 6.2-12.0 [facility] Monocyte percentageOrdered B y: Ayaka Lozano on 02-21-2025 Monocytes/100 WBC (Bld) 5.9 % 0-10 [facility] Neutrophil percentageOrdered By: Ayaka Lozano on 02-21-2025 Neutrophils/100 WBC (Bld) 76.2 % High 47-70 [facility] No Panel InformationOrdered By: Ayaka Lozano on 02-21-2025 HIV (1&2) Antibody Non-Reactive Nonreactive [facility] Comment on above: Non-ReactiveReactive Repeatedly reactive samples must be confirmed according to CDC recommended confirmatory algorithms. The subresults for either HIVAG or AHIV can be used as an aid in the selection of the confirmation algorithm for reactive samples.Send out specimens with Reactive results to [facility] for confirmation.Order the HIV antibody detection and differentiation: #[id number] Nucleated red blood cell per centageOrdered By: Ayaka Lozano on 02-21-2025 Nucleated RBC/100 WBC (Bld) [Ratio] 0 % 0-5 [facility] Administrative Job Titles Office Visit Reporton 02-21-2025 Administrative Job Titles Office Visit Report [facility] [address], [address] [place] [address] OFFICE VISIT Date of Service: 02/21/25 MR#: [id number] Acct: [id number] Name: KIRK CARVALHO Rep #: [id number] : 1990 Provider: Dr. Aarti Bush DO Age/Sex: 34/F [place] [facility] [place]: Signed Intake Vital Signs 10/31/24 11:22 12/27/24 10:03 01/24/25 10:19 02/21/25 15:14 02/21/25 15:14 Height 5 ft 5 ft 5 ft 5 ft 5 ft Weight: 183 lb 2 oz BMI 35.7 BP 112/70 Intake Visit Reasons: 28 wk ob/glucose 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 Is patient in pain?: No Allergies Penicillins Allergy (Verified 02/21/25 15:14) Vomiting Medications ???Medication ???Instructions ???Recorded ???Confirmed ???Type qtxizkka-coj-Ph-FA 1 mg 1 tab PO DAILY 09/16/22 02/21/25 History tablet cholecalciferol (vitamin D3) 25 25 mcg PO QDAY 09/21/24 02/21/25 H istory mcg (1,000 unit) capsule Last Menstrual Period: 08/08/24 Zika: Zika virus screening: Negative : No PFSH PFSH Family History Mother Endometriosis Lupus Social History adopted: No household members: spouse and children number of children: 1 current occupation: [employer] current occupational exposures/hazards: No pets and animals: Yes history of recent travel: No sexually active: Yes Smoking Status: Never smoker alcohol intake: never substance use type: does not use well-balanced diet: daily or most days caffeine: Yes Type: carbonated beverages Number of servings: 1 eating out: rarely or never during the past year weight has: increased > 10 lbs what type of physical activity do you participate in: walking frequency: 1-2 times per week duration: < 15 minutes/day seatbelt use: always do you feel safe at home: Yes 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 Date Name GA/Weeks Outcome Route Bth Weight Gen Labor Lgth Anesthesia Del Locatn Provider FOB 09/16/22 Tisha 41 live - full term 7lbs Female none [facility] Jg haydee Harry Tico HPI 28 wk ob/glucose Details: KIRK CARVALHO is a 34 year old who presents for routine OB visit. OB Visit JUAN Calculator Estimated Delivery Date Method Current WG Current Estimate 05/15/25 LMP (Uncertain) 28w 1d Other Estimates 05/13/25 Ultrasound #1 28w 3d Expected Delivery Route/Plan Labor Preferences- CB/BF classes: [] labor support person: [] labor intervention preferences: [] pain management options preferred: [] cut cord/dad catch: [] : [] PP control planned: [] discussed possible routes of delivery and associated risks: [] special requests: [] Specific Issue/Plans Covid status: [] Flu vaccine: given Tdap vaccine: [] Rhogam: given 11/29/24(spotting) LARC form signed: [] Problem list reviewed and updated with the most current plan of care details and appropriate orders placed. Relevant counseling for the gestational age provided. Continue routine care and follow up unless otherwise noted in visit notes/problem list details Initial Weight: 176 lb Date -???-???-???-???-??? -???-???-???-???-??? -???-???- EGA Weight BP Urine Prot -???-???-???-???-??? -???-???-???-???-??? -???-???- Glucose FHR FuHt Pres Dilation -???-???-???-???-??? -???-???-???-???-??? -???-???- Effaced St Visit Note 10/03/24 -???-???-???-???-??? -???-???-???-???-??? -???-???- 8w 0d 176 lb 8 oz (+8 oz) 133/78 -???-???-???-???-??? -???-???-???-???-??? -???-???- 180 -???-???-???-???-??? -???-???-???-???-??? -???-???- KW- CRL cons with dates. Declines NIPT. 10/31/24 -???-???-???-???-??? -???-???-???-???-??? -???-???- 12w 0d 178 lb 6 oz (+2 lb 6 oz) 112/76 Negative -???-???-???-???-??? -???-???-???-???-??? -???-???- Negative 165 -???-???-???-???-??? -???-???-???-???-??? -???-???- JV- no lof, vaginal bleeding, or cramping. anatomy scan ordered 11/29/24 -???-???-???-???-??? -???-???-???-???-??? -???-???- 16w 1d 177 lb 8 oz (+1 lb 8 oz) 124/78 Negative -???-???-???-???-??? -???-???-???-???-??? -???-???- Negative 148 -???-???-???-???-??? -???-???-???-???-??? -???-???- MH-Had episo de light spotting just over a week ago. T S plus rhogam today. Feeling flutters. Flu vaccine given. 12/27/24 -???-???-???-???-??? -???-???-???-???-??? -???-???- 20w 1d 178 lb 8 oz (+2 lb 8 oz) 103/64 Negative -???-???-???-???-??? -???-???-???-???-??? -???-???- Negative 150 -???-???-???-???-??? -???-?? (more content not included)... Normal [facility] Platelet countOrdered By: Ahsan Lozano on 02-21-2025 Platelets (Bld) [#/Vol] 365 10*3/uL 150-450 [facility] RBC Auto (Bld) [#/Vol]Ordere d By: Ayaka Lozano on 02-21-2025 RBC (Bld) [#/Vol] 3.98 10*6/uL Low 4.2-5.4 [facility] Syphilis Antibodieson 2024 Syphilis Abs Non-Reactive Normal Nonreactive [facility] Comment on above: Performed By: #### L 3890.6006, L100.0100, K67487-8, BTS, L501.0250, L509.8002 ####[facility] [address] [place], [address] T. pallidum abOrdered By: Ahsan Lozano on 02-21-2025 Syphilis Total Antibody Non-Reactive Nonreactiv e [facility] Type AND Screenon 02-21-2025 Ab SCREEN GEL TNP Normal [facility] Comment on above: Order Comment: PN Performed By: #### L 3890.6006, L100.0100, L74447-0, BTS, L501.0250, L509.8002 #### [facility] [address] [place], [address] ABO and Rh group Nom (Bld) Blood group A Rh(D) negative Normal [facility] Comment on above: Order Comment: PN Performed By: #### L 3890.6006, L100.0100, W96347-0, BTS, L501.0250, L509.8002 #### [facility] [address] [place], [place], [id number] White blood cell (WBC) count Ordered By: Ayaka Lozano on 02-21-2025 WBC (Bld) [#/Vol] 12.2 10*3/uL High 4.4-11.0 [facility] - Chemistry and C hemistry - challengeOrdered By: Ayaka Lozano on 01-24-2025 Glucose Ql (U) Negative [facility] - UrinalysisOrder ed By: Ayaka Lozano on 01-24-2025 Protein Ql (U) Negative [facility] Administrative Job Titles Office Visit Reporton 01-24-2025 Administrative Job Titles Office Visit Report [facility] [address], [address] [place] [address] OFFICE VISIT Date of Service: 01/24/25 MR#: [id number] Acct: [id number] Name: KIRK CARVALHO Rep #: [id number] : 1990 Provider: Dr. Ayaka carpenter MD Age/Sex: 34/F [place] [facility] [place]: Signed Intake Vital Signs 10/31/24 11:22 12/27/24 10:03 01/24/25 10:10 01/24/25 10:19 Height 5 ft 5 ft 5 ft 5 ft Weight: 182 lb 4 oz BMI 35.6 BP 114/72 Intake Visit Reasons: 24 wk ob 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 Is patient in pain?: No Feel stressed/tense/nervo us/anxious/difficult y sleeping: not at all Allergies Penicillins Allergy (Verified 01/24/25 10:11) Vomiting Medications ???Medication ???Instructions ???Recorded ???Confirmed ???Type zqgrwtes-xho-Ny-FA 1 mg 1 tab PO DAILY 09/16/22 01/24/25 History tablet cholecalciferol (vitamin D3) 25 25 mcg PO QDAY 09/21/24 01/24/25 H istory mcg (1,000 unit) capsule Last Menstrual Period: 08/08/24 Zika: Zika virus screening: Negative : No Have you fallen in the past year?: No PFSH PFSH Family History Mother Endometriosis Lupus Social History adopted: No household members: spouse and children number of children: 1 current occupation: [employer] current occupational exposures/hazards: No pets and animals: Yes history of recent travel: No sexually active: Yes Smoking Status: Never smoker alcohol intake: never substance use type: does not use well-balanced diet: daily or most days caffeine: Yes Type: carbonated beverages Number of servings: 1 eating out: rarely or never during the past year weight has: increased > 10 lbs what type of physical activity do you participate in: walking frequency: 1-2 times per week duration: < 15 minutes/day seatbelt use: always do you feel safe at home: Yes 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 Date Name GA/Weeks Outcome Route Bth Weight Infant Gen Labor Lgth Anesthesia Del Locatn Provider FOB 09/16/22 Tisha 41 live - full term 7lbs Female none [facility] gJ Doshi HPI 24 wk ob Details: KIRK CARVALHO is a 34 year old who presents for routine OB visit. OB Visit JUAN Calculator Estimated Delivery Date Method Current WG Current Estimate 05/15/25 LMP (Uncertain) 24w 1d Other Estimates 05/13/25 Ultrasound #1 24w 3d Expected Delivery Route/Plan Labor Preferences- CB/BF classes: [] labor support person: [] labor intervention preferences: [] pain management options preferred: [] cut cord/dad catch: [] : [] PP control planned: [] discussed possible routes of delivery and associated risks: [] special requests: [] Specific Issue/Plans Covid status: [] Flu vaccine: given Tdap vaccine: [] Rhogam: given 11/29/24(spotting) LARC form signed: [] Problem list reviewed and updated with the most current plan of care details and appropriate orders placed. Relevant counseling for the gestational age provided. Continue routine care and follow up unless otherwise noted in visit notes/problem list details Initial Weight: 176 lb Date -???-???-???-???-??? -???-???-???-???-??? -???-???- EGA Weight BP Urine Prot -???-???-???-???-??? -???-???-???-???-??? -???-???- Glucose FHR FuHt Pres Dilation -???-???-???-???-??? -???-???-???-???-??? -???-???- Effaced St Visit Note 10/03/24 -???-???-???-???-??? -???-???-???-???-??? -???-???- 8w 0d 176 lb 8 oz (+8 oz) 133/78 -???-???-???-???-??? -???-???-???-???-??? -???-???- 180 -???-???-???-???-??? -???-???-???-???-??? -???-???- KW- CRL cons with dates. Declines NIPT. 12/11/24 -???-???-???-???-??? -???-???-???-???-??? -???-???- 12w 0d 178 lb 6 oz (+2 lb 6 oz) 112/76 Negative -???-???-???-???-??? -???-???-???-???-??? -???-???- Negative 165 -???-???-???-???-??? -???-???-???-???-??? -???-???- JV- no lof, vaginal bleeding, or cramping. anatomy scan ordered 11/29/24 -???-???-???-???-??? -???-???-???-???-??? -???-???- 16w 1d 177 lb 8 oz (+1 lb 8 oz) 124/78 Negative -???-???-???-???-??? -???-???-???-???-??? -???-???- Negative 148 -???-???-???-???-??? -???-???-???-???-??? -???-???- MH-Had episo de light spotting just over a week ago. T S plus rhogam today. Feeling flutters. Flu vaccine given. 12/27/24 -???-???-???-???-??? -???-???-???-???-??? -???-???- 20w 1d 178 lb 8 oz (+2 lb 8 oz) 103/64 Negative -???-???-???-???-??? -???-??? (more content not included)... Normal [facility] - Chemistry and C hemistry - challengeOrdered By: Aarti Davis on 12-27-2024 Glucose Ql (U) Negative [facility] - UrinalysisOrder ed By: Aatri Davis on 12-27-2024 Protein Ql (U) Negative [facility] Administrative Job Titles Office Visit Reporton 12-27-2024 Administrative Job Titles Office Visit Report [facility] [address], [address] [place] [address] OFFICE VISIT Date of Service: 12/27/24 MR#: [id number] Acct: [id number] Name: KIRK CARVALHO Rep #: [id number] : 1990 Provider: Dr. Aarti Bush DO Age/Sex: 34/F [place] [facility] [place]: Signed Intake Vital Signs 10/31/24 11:22 11/29/24 09:58 12/27/24 10:02 12/27/24 10:03 Height 5 ft 5 ft 5 ft 5 ft Weight: 178 lb 8 oz BMI 34.8 BP 103/64 Intake Visit Reasons: 20 wk ob 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 Is patient in pain?: No Allergies Penicillins Allergy (Verified 12/27/24 10:02) Vomiting Medications ???Medication ???Instructions ???Recorded ???Confirmed ???Type ycccbntc-qpw-Je-FA 1 mg 1 tab PO DAILY 09/16/22 12/27/24 History tablet cholecalciferol (vitamin D3) 25 25 mcg PO QDAY 09/21/24 12/27/24 H istory mcg (1,000 unit) capsule Last Menstrual Period: 08/08/24 Zika: Zika virus screening: Negative : No PFSH PFSH Family History Mother Endometriosis Lupus Social History adopted: No household members: spouse and children number of children: 1 current occupation: [employer] current occupational exposures/hazards: No pets and animals: Yes history of recent travel: No sexually active: Yes Smoking Status: Never smoker alcohol intake: never substance use type: does not use well-balanced diet: daily or most days caffeine: Yes Type: carbonated beverages Number of servings: 1 eating out: rarely or never during the past year weight has: increased > 10 lbs what type of physical activity do you participate in: walking frequency: 1-2 times per week duration: < 15 minutes/day seatbelt use: always do you feel safe at home: Yes 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 Date Name GA/Weeks Outcome Route Bth Weight Infant Gen Labor Lgth Anesthesia Del Locatn Provider FOB 09/16/22 Tisha 41 live - full term 7lbs Female none [facility] Jg hubbard Harry [place] HPI 20 wk ob Details: KIRK CARVALHO is a 34 year old who presents for routine OB visit. OB Visit JUAN Calculator Estimated Delivery Date Method Current WG Current Estimate 05/15/25 LMP (Uncertain) 20w 1d Other Estimates 05/13/25 Ultrasound #1 20w 3d Expected Delivery Route/Plan Labor Preferences- CB/BF classes: [] labor support person: [] labor intervention preferences: [] pain management options preferred: [] cut cord/dad catch: [] : [] PP control planned: [] discussed possible routes of delivery and associated risks: [] special requests: [] Specific Issue/Plans Covid status: [] Flu vaccine: given Tdap vaccine: [] Rhogam: given 11/29/24(spotting) LARC form signed: [] Problem list reviewed and updated with the most current plan of care details and appropriate orders placed. Relevant counseling for the gestational age provided. Continue routine care and follow up unless otherwise noted in visit notes/problem list details Initial Weight: 176 lb Date -???-???-???-???-??? -???-???-???-???-??? -???-???- EGA Weight BP Urine Prot -???-???-???-???-??? -???-???-???-???-??? -???-???- Glucose FHR FuHt Pres Dilation -???-???-???-???-??? -???-???-???-???-??? -???-???- Effaced St Visit Note 10/03/24 -???-???-???-???-??? -???-???-???-???-??? -???-???- 8w 0d 176 lb 8 oz (+8 oz) 133/78 -???-???-???-???-??? -???-???-???-???-??? -???-???- 180 -???-???-???-???-??? -???-???-???-???-??? -???-???- KW- CRL cons with dates. Declines NIPT. 10/31/24 -???-???-???-???-??? -???-???-???-???-??? -???-???- 12w 0d 178 lb 6 oz (+2 lb 6 oz) 112/76 Negative -???-???-???-???-??? -???-???-???-???-??? -???-???- Negative 165 -???-???-???-???-??? -???-???-???-???-??? -???-???- JV- no lof, vaginal bleeding, or cramping. anatomy scan ordered 11/29/24 -???-???-???-???-??? -???-???-???-???-??? -???-???- 16w 1d 177 lb 8 oz (+1 lb 8 oz) 124/78 Negative -???-???-???-???-??? -???-???-???-???-??? -???-???- Negative 148 -???-???-???-???-??? -???-???-???-???-??? -???-???- MH-Had episo de light spotting just over a week ago. T S plus rhogam today. Feeling flutters. Flu vaccine given. 12/27/24 -???-???-???-???-??? -???-???-???-???-??? -???-???- 20w 1d 178 lb 8 oz (+2 lb 8 oz) 103/64 Negative -???-???-???-???-??? -???-???-???-???-??? -???-???- Negative 150 -???-???-???-???-??? -???-???-???-???-??? -???-???- JV- no lof, (more content not included)... Normal [facility] - Chemistry and C hemistry - challengeon 11-29-2024 Glucose Ql (U) Negative [facility] - Urinalysison Protein Ql (U) Negative [facility] Administrative Job Titles Office Visit Reporton 11-29-2024 Administrative Job Titles Office Visit Report [facility] [address], [address] [place] [address] OFFICE VISIT Date of Service: 11/29/24 MR#: [id number] Acct: [id number] Name: KIRK CARVALHO Rep #: [id number] : 1990 Provider: OLMAN matamoros Age/Sex: 33/F Location[place] [facility] [place] Status: Signed Intake Vital Signs 10/03/24 11:20 12/11/24 11:22 11/29/24 09:58 Height 5 ft 5 ft 5 ft Weight: 177 lb 8 oz BMI 34.7 BP 124/78 H Intake Visit Reasons: 16 WK OB Chief Complaint: 16 Week OB 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 Is patient in pain?: No Allergies Penicillins Allergy (Verified 11/29/24 09:59) Vomiting Medications ???Medication ???Instructions ???Recorded ???Confirmed ???Type igdbsjmj-qyv-Di-FA 1 mg 1 tab PO DAILY 09/16/22 11/29/24 History tablet cholecalciferol (vitamin D3) 25 25 mcg PO QDAY 09/21/24 11/29/24 History mcg (1,000 unit) capsule Last Menstrual Period: 08/08/24 Zika: Zika virus screening: Negative : No PFSH PFSH Family History Mother Endometriosis Lupus Social History adopted: No household members: spouse and children number of children: 1 current occupation: [employer] current occupational exposures/hazards: No pets and animals: Yes history of recent travel: No sexually active: Yes Smoking Status: Never smoker alcohol intake: never substance use type: does not use well-balanced diet: daily or most days caffeine: Yes Type: carbonated beverages Number of servings: 1 eating out: rarely or never during the past year weight has: increased > 10 lbs what type of physical activity do you participate in: walking frequency: 1-2 times per week duration: < 15 minutes/day seatbelt use: always do you feel safe at home: Yes 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 Date Name GA/Weeks Outcome Route Bth Weight Infant Gen Labor Lgth Anesthesia Del Locatn Provider FOB 09/16/22 Tisha 41 live - full term 7lbs Female none [facility] Jg Doshi HPI 16 WK OB Details: KIRK CARVALHO is a 33 year old who presents for routine OB visit. OB Visit JUAN Calculator Estimated Delivery Date Method Current WG Current Estimate 05/15/25 LMP (Uncertain) 16w 1d Other Estimates 05/13/25 Ultrasound #1 16w 3d Expected Delivery Route/Plan Labor Preferences- CB/BF classes: [] labor support person: [] labor intervention preferences: [] pain management options preferred: [] cut cord/dad catch: [] : [] PP control planned: [] discussed possible routes of delivery and associated risks: [] special requests: [] Specific Issue/Plans Covid status: [] Flu vaccine: given Tdap vaccine: [] Rhogam: given 11/29/24(spotting) LARC form signed: [] Problem list reviewed and updated with the most current plan of care details and appropriate orders placed. Relevant counseling for the gestational age provided. Continue routine care and follow up unless otherwise noted in visit notes/problem list details Initial Weight: 176 lb Date -???-???-???-???-??? -???-???-???-???-??? -???-???- EGA Weight BP Urine Prot -???-???-???-???-??? -???-???-???-???-??? -???-???- Glucose FHR FuHt Pres Dilation -???-???-???-???-??? -???-???-???-???-??? -???-???- Effaced St Visit Note 10/03/24 -???-???-???-???-??? -???-???-???-???-??? -???-???- 8w 0d 176 lb 8 oz (+8 oz) 133/78 -???-???-???-???-??? -???-???-???-???-??? -???-???- 180 -???-???-???-???-??? -???-???-???-???-??? -???-???- KW- CRL cons with dates. Declines NIPT. 10/31/24 -???-???-???-???-??? -???-???-???-???-??? -???-???- 12w 0d 178 lb 6 oz (+2 lb 6 oz) 112/76 Negative -???-???-???-???-??? -???-???-???-???-??? -???-???- Negative 165 -???-???-???-???-??? -???-???-???-???-??? -???-???- JV- no lof, vaginal bleeding, or cramping. anatomy scan ordered 11/29/24 -???-???-???-???-??? -???-???-???-???-??? -???-???- 16w 1d 177 lb 8 oz (+1 lb 8 oz) 124/78 Negative -???-???-???-???-??? -???-???-???-???-??? -???-???- Negative 148 -???-???-???-???-??? -???-???-???-???-??? -???-???- MH-Had episo de light spotting just over a week ago. T S plus rhogam today. Feeling flutters. Flu vaccine given. ACOG First Trimester First Trimester: Discussed Second Trimester Second Trimester: Signs and Symptoms of Labor, Selecting a care provider, Reproductive Life Planning Contreception, Care Planning (more content not included)... Normal [facility] Type AND Screenon 11-29-2024 Ab SCREEN GEL Negative [facility] Comment on above: Order Comment: PN Performed By: #### B TS ####[facility] [address] [place], [address] Laboratory - Chemistry and C hemistry - challengeon 10-31-2024 Glucose Ql (U) Negative [facility] Laboratory - Urinalysison Protein Ql (U) Negative [facility] Administrative Job Titles Office Visit Reporton 10-31-2024 Administrative Job Titles Office Visit Report [facility] [address], [address] [place] [address] OFFICE VISIT Date of Service: 10/31/24 MR#: [id number] Acct: [id number] Name: KIRK CARVALHO Rep #: [id number] : 1990 Provider: Dr. Aarti Bush DO Age/Sex: 33/F [place] [facility] [place] Status: Signed Intake Vital Signs 04/04/24 10:09 10/03/24 11:20 10/31/24 11:20 10/31/24 11:22 Height 5 ft 5 ft 5 ft 5 ft Weight: 178 lb 6 oz BMI 34.8 BP 112/76 Intake Visit Reasons: 12wk OB 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 Is patient in pain?: No Allergies Penicillins Allergy (Verified 10/31/24 11:20) Vomiting Medications ???Medication ???Instructions ???Recorded ???Confirmed ???Type vcxmotzx-uai-Yl-FA 1 mg 1 tab PO DAILY 09/16/22 10/31/24 History tablet cholecalciferol (vitamin D3) 25 25 mcg PO QDAY 09/21/24 10/31/24 History mcg (1,000 unit) capsule Last Menstrual Period: 08/08/24 Zika: Zika virus screening: Negative : No PFSH PFSH Family History Mother Endometriosis Lupus Social History adopted: No household members: spouse and children number of children: 1 current occupation: [employer] current occupational exposures/hazards: No pets and animals: Yes history of recent travel: No sexually active: Yes Smoking Status: Never smoker alcohol intake: never substance use type: does not use well-balanced diet: daily or most days caffeine: Yes Type: carbonated beverages Number of servings: 1 eating out: rarely or never during the past year weight has: increased > 10 lbs what type of physical activity do you participate in: walking frequency: 1-2 times per week duration: < 15 minutes/day seatbelt use: always do you feel safe at home: Yes 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 Date Name GA/Weeks Outcome Route Bth Weight Gen Labor Lgth Anesthesia Del Locatn Provider FOB 09/16/22 Tisha 41 live - full term 7lbs Female none [facility] Jg Doshi HPI 12wk OB Details: KIRK CARVALHO is a 33 year old who presents for routine OB visit. OB Visit JUAN Calculator Estimated Delivery Date Method Current WG Current Estimate 05/15/25 LMP (Uncertain) 12w 0d Other Estimates 05/13/25 Ultrasound #1 12w 2d Expected Delivery Route/Plan Labor Preferences- CB/BF classes: [] labor support person: [] labor intervention preferences: [] pain management options preferred: [] cut cord/dad catch: [] : [] PP control planned: [] discussed possible routes of delivery and associated risks: [] special requests: [] Specific Issue/Plans Covid status: [] Flu vaccine: [] Tdap vaccine: [] Rhogam: [] LARC form signed: [] Problem list reviewed and updated with the most current plan of care details and appropriate orders placed. Relevant counseling for the gestational age provided. Continue routine care and follow up unless otherwise noted in visit notes/problem list details Initial Weight: 176 lb Date -???-???-???-???-??? -???-???-???-???-??? -???-???- EGA Weight BP Urine Prot -???-???-???-???-??? -???-???-???-???-??? -???-???- Glucose FHR FuHt Pres Dilation -???-???-???-???-??? -???-???-???-???-??? -???-???- Effaced St Visit Note 10/03/24 -???-???-???-???-??? -???-???-???-???-??? -???-???- 8w 0d 176 lb 8 oz (+8 oz) 133/78 -???-???-???-???-??? -???-???-???-???-??? -???-???- 180 -???-???-???-???-??? -???-???-???-???-??? -???-???- KW- CRL cons with dates. Declines NIPT. 10/31/24 -???-???-???-???-??? -???-???-???-???-??? -???-???- 12w 0d 178 lb 6 oz (+2 lb 6 oz) 112/76 Negative -???-???-???-???-??? -???-???-???-???-??? -???-???- Negative 165 -???-???-???-???-??? -???-???-???-???-??? -???-???- JV- no lof, vaginal bleeding, or cramping. anatomy scan ordered ACOG First Trimester First Trimester: Discussed Second Trimester Second Trimester: Signs and Symptoms of Labor, Selecting a care provider, Reproductive Life Planning Contreception, Care Planning, Depression/Anxiety and Intimate Partner Violence; Discussed Tobacco Cessation Third Trimester Third Trimester: Pain Management Plans, Labor support person(s), Immediate Larc, Signs and Symptoms of Preeclampsia, Infant Feeding No , [place] Education and Family Medical Leave or Disability Forms Results POC Urinalysis 2 Dip (Clinic) (more content not included)... Normal [facility] Chlamydia/GC CADY aptimaon CHLAMY,NUC ACID Negative Normal Negative [facility] Comment on above: Performed By: #### L 7000.1800, M100.2200 ####[facility] [address] [place], [address] GC BY NUC ACID Negative Normal Negative [facility] Comment on above: Result Comment: Perf ormed at: =G - [facility] [address] [place] [id number] Chorus Dancer: Luh Smiley MD, Phone: [phone] Performed By: #### L 7000.1800, M1.0 ####[facility] [address] [place], [address] Urine Cultureon 10-06-2024 URC #1 Below infection level. Streptococcus agalactiae (B) [place] Count <1000 Mixed Gram Positive Organisms Mixed Gram Positive Organisms MIXC Mixed contaminants. Submit a new specimen if indicated. Streptococcus agalactiae (B): REACTION Ampicillin Islt RONEN <=0.25 cefTRIAXone Islt RONEN <=0.12 S Clindamycin Islt RONEN <=0.25 Clindamycin.induced Susc Islt NEG Linezolid Islt RONEN <=2 S Vancomycin Islt RONEN 0.5 S Normal [facility] Comment on above: Performed By: #### L 7000.1800, M100.2200 ####[facility] [address] [place], [address] CBC W/Diff, Automatedon 09-21 Absolute Lymph 1.93 X10 3/uL Normal 0.83-4.51 [facility] Comment on above: Performed By: #### L 509.4005, L100.0100, BTS, L509.8000, L3890.6005, L501.9985, L3890.6300, L3890.6100 ####[facility] [address] [place], [address] Absolute Neut 9.0 X10 3/uL High 2.0-7.7 [facility] Comment on above: Performed By: #### L 509.4005, L100.0100, BTS, L509.8000, L3890.6005, L501.9985, L3890.6300, L3890.6100 ####[facility] [address] [place], [address] Basophils/100 WBC (Bld) 0.7 % Normal 0-1 [facility] Comment on above: Performed By: #### L 509.4005, L100.0100, BTS, L509.8000, L3890.6005, L501.9985, L3890.6300, L3890.6100 ####[facility] [address] [place], [address] Eosinophils/100 WBC (Bld) 0.9 % Normal 0-5 [facility] Comment on above: Performed By: #### L 509.4005, L100.0100, BTS, L509.8000, L3890.6005, L501.9985, L3890.6300, L3890.6100 ####[facility] [address] [place], [address] Erythrocyte distribution width (RBC) [Ratio] 12.5 % Normal 11.6-14.6 [facility] Comment on above: Performed By: #### L 509.4005, L100.0100, BTS, L509.8000, L3890.6005, L501.9985, L3890.6300, L3890.6100 ####[facility] [address] [place], [address] Hematocrit (Bld) [Volume fraction] 38.8 % Normal 37-47 [facility] Comment on above: Performed By: #### L 509.4005, L100.0100, BTS, L509.8000, L3890.6005, L501.9985, L3890.6300, L3890.6100 ####[facility] [address] [place], [address] Hemoglobin (Bld) [Mass/Vol] 12.9 g/dL Normal 12.0-15.0 [facility] Comment on above: Performed By: #### L 509.4005, L100.0100, BTS, L509.8000, L3890.6005, L501.9985, L3890.6300, L3890.6100 ####[facility] [address] [place], [address] IG% 0.400 Normal 0.0-0.9 [facility] Comment on above: Result Comment: IG% - Immature Granulocytes (promyelocytes, myelocytes and metamyelocytes) > 1% indicates that a LEFT SHIFT is Present. Performed By: #### L 509.4005, L100.0100, BTS, L509.8000, L3890.6005, L501.9985, L3890.6300, L3890.6100 ####[facility] [address] [place], [address] Lymphocytes/100 WBC (Bld) 16.3 % Low 19-41 [facility] Comment on above: Performed By: #### L 509.4005, L100.0100, BTS, L509.8000, L3890.6005, L501.9985, L3890.6300, L3890.6100 ####[facility] [address] [place], [address] MCH (RBC) [Entitic mass] 28.5 pg Normal 27.0-32.0 [facility] Comment on above: Performed By: #### L 509.4005, L100.0100, BTS, L509.8000, L3890.6005, L501.9985, L3890.6300, L3890.6100 ####[facility] [address] [place], [address] MCHC (RBC) [Mass/Vol] 33.2 g/dL Normal 32-36 [facility] Comment on above: Performed By: #### L 509.4005, L100.0100, BTS, L509.8000, L3890.6005, L501.9985, L3890.6300, L3890.6100 ####[facility] [address] [place], [address] MCV (RBC) [Entitic vol] 85.7 fL Normal 81-99 [facility] Comment on above: Performed By: #### L 509.4005, L100.0100, BTS, L509.8000, L3890.6005, L501.9985, L3890.6300, L3890.6100 ####[facility] [address] [place], [address] Monocytes/100 WBC (Bld) 6.0 % Normal 0-10 [facility] Comment on above: Performed By: #### L 509.4005, L100.0100, BTS, L509.8000, L3890.6005, L501.9985, L3890.6300, L3890.6100 ####[facility] [address] [place], [address] Neutrophils/100 WBC (Bld) 75.7 % High 47-70 [facility] Comment on above: Performed By: #### L 509.4005, L100.0100, BTS, L509.8000, L3890.6005, L501.9985, L3890.6300, L3890.6100 ####[facility] [address] [place], [address] Nucleated RBC (Bld) [#/Vol] 0 10*3/uL Normal 0-5 [facility] Comment on above: Performed By: #### L 509.4005, L100.0100, BTS, L509.8000, L3890.6005, L501.9985, L3890.6300, L3890.6100 ####[facility] [address] [place], [address] Platelet mean volume (Bld) [Entitic vol] 9.2 fL Normal 6.2-12.0 [facility] Comment on above: Performed By: #### L 509.4005, L100.0100, BTS, L509.8000, L3890.6005, L501.9985, L3890.6300, L3890.6100 ####[facility] [address] [place], [address] Platelets (Bld) [#/Vol] 442 10*3/uL Normal 150-450 [facility] Comment on above: Performed By: #### L 509.4005, L100.0100, BTS, L509.8000, L3890.6005, L501.9985, L3890.6300, L3890.6100 ####[facility] [address] [place], [place], [phone] RBC (Bld) [#/Vol] 4.53 10*6/uL Normal 4.2-5.4 [facility] Comment on above: Performed By: #### L 509.4005, L100.0100, BTS, L509.8000, L3890.6005, L501.9985, L3890.6300, L3890.6100 ####[facility] [address] [place], [address] RDW SD 38.8 fl Normal 35.1-43.9 [facility] Comment on above: Performed By: #### L 509.4005, L100.0100, BTS, L509.8000, L3890.6005, L501.9985, L3890.6300, L3890.6100 ####[facility] [address] [place], [address] WBC (Bld) [#/Vol] 11.9 10*3/uL High 4.4-11.0 [facility] Comment on above: Performed By: #### L 509.4005, L100.0100, BTS, L509.8000, L3890.6005, L501.9985, L3890.6300, L3890.6100 ####[facility] [address] [place], [place], [id number] HIV - WCHon 10-03-2024 HIV Non-Reactive Normal Nonreactive [facility] Comment on above: Order Comment: Reaso n for Exam: Performed By: #### L 509.4005, L100.0100, BTS, L509.8000, L3890.6005, L501.9985, L3890.6300, L3890.6100 ####[facility] [address] [place], [place], [id number] Hemoglobin A1con 10-03-2024 HbA1c (Bld) [Mass fraction] 5.0 % Normal 3.8-5.6 [facility] Comment on above: Result Comment: Norm al < 5.7 % Prediabetic 5.7 - 6.4 % Diabetic >or= 6.5 % Please note range changes. Performed By: #### L 509.4005, L100.0100, BTS, L509.8000, L3890.6005, L501.9985, L3890.6300, L3890.6100 ####[facility] [address] [place], [place], [id number] Hepatitis B Surface Antigeno n 10-03-2024 HEP B Surf Ag Non-Reactive Normal Nonreactive [facility] Comment on above: Order Comment: Reaso n for Exam: Performed By: #### L 509.4005, L100.0100, BTS, L509.8000, L3890.6005, L501.9985, L3890.6300, L3890.6100 ####[facility] [address] [place], [place], [address] Hepatitis C Antibodyon 10-03 Hepatitis C AB Non-Reactive Normal Nonreactive [facility] Comment on above: Order Comment: Reaso n for Exam: Result Comment: Non Reactive: < 0.8 Equivocal: >/= 0.8 to < 1.0 Reactive: >/= 1.0 The CDC requires that a reactive/equivocal HCV antibody result be sent out for confirmation. HCV Quant by PCR testing. Performed By: #### L 509.4005, L100.0100, BTS, L509.8000, L3890.6005, L501.9985, L3890.6300, L3890.6100 ####[facility] [address] [place], [address] L509.8000on 10-03-2024 Syphilis Abs Non-Reactive Normal [facility] Comment on above: Order Comment: Reaso n for Exam: Performed By: #### L 509.4005, L100.0100, BTS, L509.8000, L3890.6005, L501.9985, L3890.6300, L3890.6100 ####[facility] [address] [place], [place], [address] Administrative Job Titles Office Visit Reporton 10-03-2024 Administrative Job Titles Office Visit Report [facility] [address], [address] [place] [address] OFFICE VISIT Date of Service: 10/03/24 MR#: [id number] Acct: [id number] Name: DEVENKIRK HARVEY PAVEL Rep #: [id number] : 1990 Provider: ASHUTOSH Davenport ams Age/Sex: 33/F [place] [facility] [place] Status: Signed Intake Vital Signs 04/04/24 10:09 10/03/24 11:18 10/03/24 11:20 Height 5 ft 5 ft 5 ft Weight: 177 lb 2 oz 176 lb 8 oz BMI 34.6 34.4 BP 122/70 H 133/78 H Intake Visit Reasons: New OB, LMP 08/08, JUAN 05/15/25 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 Is patient in pain?: No Feel stressed/tense/nervo us/anxious/difficult y sleeping: not at all Allergies Penicillins Allergy (Verified 10/03/24 11:19) Vomiting Medications ???Medication ???Instructions ???Recorded ???Confirmed ???Type hfvlnliw-bqw-Hd-FA 1 mg 1 tab PO DAILY 09/16/22 10/03/24 History tablet cholecalciferol (vitamin D3) 25 25 mcg PO QDAY 09/21/24 10/03/24 History mcg (1,000 unit) capsule Last Menstrual Period: 08/08/24 Zika: Zika virus screening: Negative : Yes Have you fallen in the past year?: No PFSH PFSH Family History Mother Endometriosis Lupus Social History adopted: No household members: spouse and children number of children: 1 service: No current occupation: [employer] current occupational exposures/hazards: No pets and animals: Yes history of recent travel: No sexually active: Yes Smoking Status: Never smoker alcohol intake: never substance use type: does not use well-balanced diet: daily or most days caffeine: Yes Type: carbonated beverages Number of servings: 1 eating out: rarely or never during the past year weight has: increased > 10 lbs what type of physical activity do you participate in: walking frequency: 1-2 times per week duration: < 15 minutes/day seatbelt use: always do you feel safe at home: Yes 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 Date Name GA/Weeks Outcome Route Bth Weight Gen Labor Lgth Anesthesia Del Locatn Provider FOB 09/16/22 Tisha 41 live - full term 7lbs Female none [facility] Jg Mcdonald Tico HPI New OB, LMP 08/08, JUAN 05/15/25 Details: KIRK CARVALHO is a 33 year old who presents for New OB visit. OB Visit JUAN Calculator Estimated Delivery Date Method Current WG Current Estimate 05/15/25 LMP (Uncertain) 8w 0d Other Estimates 05/13/25 Ultrasound #1 8w 2d Estimated Due Date: 05/15/25 Expected Delivery Route/Plan Labor Preferences- CB/BF classes: [] labor support person: [] labor intervention preferences: [] pain management options preferred: [] cut cord/dad catch: [] : [] PP control planned: [] discussed possible routes of delivery and associated risks: [] special requests: [] Specific Issue/Plans Covid status: [] Flu vaccine: [] Tdap vaccine: [] Rhogam: [] LARC form signed: [] Problem list reviewed and updated with the most current plan of care details and appropriate orders placed. Relevant counseling for the gestational age provided. Continue routine care and follow up unless otherwise noted in visit notes/problem list details Initial Weight: 176 lb Date -???-???-???-???-??? -???-???-???-???-??? -???-???- EGA Weight BP Urine Prot -???-???-???-???-??? -???-???-???-???-??? -???-???- Glucose FHR FuHt Pres Dilation -???-???-???-???-??? -???-???-???-???-??? -???-???- Effaced St Visit Note 10/03/24 -???-???-???-???-??? -???-???-???-???-??? -???-???- 8w 0d 176 lb 8 oz (+8 oz) 133/78 -???-???-???-???-??? -???-???-???-???-??? -???-???- 180 -???-???-???-???-??? -???-???-???-???-??? -???-???- KW- CRL cons with dates. Declines NIPT. Menstrual History Last Menstrual Period: 08/08/24 Reported LMP: approximate (month known) (Unsure of date of period as this is a surprise ) Normal amount/duration: Yes Frequency in days: 21-27 On hormonal BC at conception: No hCG+: 09/17/24 Antepartum Record Genetic Screening: Congenital Heart Defect: Other, Neural Tube Defect: Other, Hemoglobinopathy Or Carrier: Other, Cystic Fibrosis: Other, Chromosome Abnormality: Other, Blaise-Sachs: Other, Hemophilia: Other, Intellectual Disability/Autism: Other, Recurrent Loss/Stillbirth: Other, Other Structural Defect: Other, Other Genetic Disease: Other and Maternal Metabolic Disorder: Other Infection History: Live with someone with (more content not included)... Normal [facility] Rubella IgGon 10-03-2024 Rubella IgG Reactive Normal Nonreactive [facility] Comment on above: Order Comment: Reaso n for Exam: Result Comment: Anti body Results Interpretation of Immune Status Non Reactive Presumed Non-Immune Equivocal Equivocal Reactive Presumed Immune Performed By: #### L 509.4005, L100.0100, BTS, L509.8000, L3890.6005, L501.9985, L3890.6300, L3890.6100 ####[facility] [address] [place], [address] Type AND Screenon 10-03-2024 ABO and Rh group Nom (Bld) Blood group A Rh(D) negative Normal [facility] Comment on above: Order Comment: PN Performed By: #### L 509.4005, L100.0100, BTS, L509.8000, L3890.6005, L501.9985, L3890.6300, L3890.6100 ####[facility] [address] [place], [place], [id number] Absolute lymphocyte counton 09-16-2022 Lymphocytes Auto (Unsp spec) [#/Vol] 1.94 10*3/uL 0.83-4.51 [facility] Work Phone: Basophil percentageon 2021 Basophils/100 WBC (Bld) 0.5 % 0-1 [facility] Work Phone: Eosinophils/100 WBC (Bld) 0.6 % 0-5 [facility] Work Phone: Neutrophils (Bld) [#/Vol] 9.5 10*3/uL 2.0-7.7 [facility] Work Phone: Neutrophils/100 WBC (Bld) 75.0 % 47-70 [facility] Work Phone: WBC (Bld) [#/Vol] 12.6 10*3/uL 4.4-11.0 [facility] Work Phone: Blood erythrocytes count (nu mber/volume)on 09-16-2022 RBC (Bld) [#/Vol] 4.28 10*6/uL 4.2-5.4 [facility] Work Phone: Blood hemoglobin measurement (mass/volume)on 09-16-2022 Hemoglobin (Bld) [Mass/Vol] 13.3 g/dL 12.0-15.0 [facility] Work Phone: Blood lymphocytes/100 leukoc yteson 09-16-2022 Lymphocytes/100 WBC (Bld) 15.4 % 19-41 [facility] Work Phone: Blood monocytes/100 leukocyt eson 09-16-2022 Monocytes/100 WBC (Bld) 7.6 % 0-10 [facility] Work Phone: Blood platelet mean volumeon 09-16-2022 Platelet mean volume (Bld) [Entitic vol] 10.7 fL 6.2-12.0 [facility] Work Phone: [phone] Determination of erythrocyte mean corpuscular volume (MCV)on 09-16-2022 MCV (RBC) [Entitic vol] 85.3 fL 81-99 [facility] Work Phone: [phone] Hematocrit Auto (Bld) [Volum e fraction]on 09-16-2022 Hematocrit (Bld) [Volume fraction] 36.5 % 37-47 [facility] Work Phone: [phone] Laboratory - Hematology and Cell countson 09-16-2022 Erythrocyte distribution width (RBC) [Entitic vol] 41.6 fL 35.1-43.9 [facility] Work Phone: [phone] Erythrocyte distribution width (RBC) [Ratio] 13.3 % 11.6-14.6 [facility] Work Phone: [phone] Immature granulocytes/100 WBC (Bld) 0.900 % 0.0-0.9 [facility] Work Phone: [phone] Comment on above: IG% - Immature Granu locytes (promyelocytes, myelocytes and metamyelocytes) > 1% indicates that a LEFT SHIFT is Present. MCH (RBC) [Entitic mass] 31.1 pg 27.0-32.0 [facility] Work Phone: [phone] Nucleated RBC/100 WBC (Bld) [Ratio] 0 % 0-5 [facility] Work Phone: [phone] MCHC Auto (RBC) [Mass/Vol]on 09-16-2022 MCHC (RBC) [Mass/Vol] 36.4 g/dL 32-36 [facility] [facility] Work Phone: [phone] Platelets bldon 09-16-2022 Platelets (Bld) [#/Vol] 298 10*3/uL 150-450 [facility] Work Phone: [phone] Basophil percentageon 2021 WBC (Bld) [#/Vol] 10.5 10*3/uL 4.4-11.0 [facility] Work Phone: [phone] Blood erythrocytes count (nu mber/volume)on 06-17-2022 RBC (Bld) [#/Vol] 4.00 10*6/uL 4.2-5.4 [facility] Work Phone: Blood hemoglobin measurement (mass/volume)on 06-17-2022 Hemoglobin (Bld) [Mass/Vol] 12.3 g/dL 12.0-15.0 [facility] Work Phone: Blood platelet mean volumeon 06-17-2022 Platelet mean volume (Bld) [Entitic vol] 9.8 fL 6.2-12.0 [facility] Work Phone: Determination of erythrocyte mean corpuscular volume (MCV)on 06-17-2022 MCV (RBC) [Entitic vol] 86.5 fL 81-99 [facility] Work Phone: Gestational diabetes screen 1-hour screen with 50g oral glucose loadon 06-17-2022 Glucose 1 Hr post 50 g glucose PO [Mass/Vol] 108 mg/dL 70-140 [facility] Work Phone: [phone] Hematocrit Auto (Bld) [Volum e fraction]on 06-17-2022 Hematocrit (Bld) [Volume fraction] 34.6 % 37-47 [facility] Work Phone: Laboratory - Hematology and Cell countson 06-17-2022 Erythrocyte distribution width (RBC) [Entitic vol] 41.5 fL 35.1-43.9 [facility] Work Phone: [phone] Erythrocyte distribution width (RBC) [Ratio] 13.2 % 11.6-14.6 [facility] Work Phone: MCH (RBC) [Entitic mass] 30.8 pg 27.0-32.0 [facility] Work Phone: MCHC Auto (RBC) [Mass/Vol]on 06-17-2022 MCHC (RBC) [Mass/Vol] 35.5 g/dL 32-36 [facility] Work Phone: Platelets bldon 06-17-2022 Platelets (Bld) [#/Vol] 337 10*3/uL 150-450 [facility] Work Phone: No Panel Information Group B Streptococcus Culture Streptococcus agalactiae (B) [facility] Work Phone: Vital Signs Date Time Vital Sign Value Performing Clinician Radha tirado 05-09-2025 09:54-0400 Body height 152.4 cm No Primary Care Physician [facility] 05-09-2025 09:54-0400 Body mass index (BMI) [Ratio] 38.2 kg/m2 No Primary Care Physician [facility] 05-09-2025 09:54-0400 Body weight 88.67 kg No Primary Care Physician [facility] 05-09-2025 09:54-0400 Diastolic blood pressure 74 mm[Hg] No Primary Care Physician [facility] 05-09-2025 09:54-0400 Systolic blood pressure 105 mm[Hg] No Primary Care Physician [facility] 05-02-2025 09:51-0400 Body height 152.4 cm No Primary Care Physician [facility] 05-02-2025 09:51-0400 Body mass index (BMI) [Ratio] 37.9 kg/m2 No Primary Care Physician [facility] 05-02-2025 09:51-0400 Body weight 88.16 kg No Primary Care Physician [facility] 05-02-2025 09:51-0400 Diastolic blood pressure 75 mm[Hg] No Primary Care Physician [facility] 05-02-2025 09:51-0400 Systolic blood pressure 122 mm[Hg] No Primary Care Physician [facility] 04-26-2025 10:28-0400 Body height 152.4 cm No Primary Care Physician [facility] 04-26-2025 10:28-0400 Body mass index (BMI) [Ratio] 37.7 kg/m2 No Primary Care Physician [facility] 04-26-2025 10:28-0400 Body weight 87.6 kg No Primary Care Physician [facility] 04-26-2025 10:28-0400 Diastolic blood pressure 62 mm[Hg] No Primary Care Physician [facility] 04-26-2025 10:28-0400 Systolic blood pressure 94 mm[Hg] No Primary Care Physician [facility] 04-18-2025 10:03-0400 Body height 152.4 cm No Primary Care Physician [facility] 04-18-2025 10:03-0400 Body mass index (BMI) [Ratio] 37.3 kg/m2 No Primary Care Physician [facility] 04-18-2025 10:03-0400 Body weight 86.74 kg No Primary Care Physician [facility] 04-18-2025 10:03-0400 Diastolic blood pressure 74 mm[Hg] No Primary Care Physician [facility] 04-18-2025 10:03-0400 Systolic blood pressure 125 mm[Hg] No Primary Care Physician [facility] 04-04-2025 10:13-0400 Body height 152.4 cm No Primary Care Physician [facility] 04-04-2025 10:07-0400 Body mass index (BMI) [Ratio] 36.5 kg/m2 No Primary Care Physician [facility] 04-04-2025 10:07-0400 Body weight 84.82 kg No Primary Care Physician [facility] 04-04-2025 10:07-0400 Diastolic blood pressure 66 mm[Hg] No Primary Care Physician [facility] 04-04-2025 10:07-0400 Systolic blood pressure 97 mm[Hg] No Primary Care Physician [facility] 03-29-2025 12:00-0400 Body mass index (BMI) [Ratio] 36.7 kg/m2 No Primary Care Physician [facility] 03-29-2025 12:00-0400 Body weight 85.3 kg No Primary Care Physician [facility] 03-29-2025 11:58-0400 Body height 152.4 cm No Primary Care Physician [facility] 03-29-2025 11:58-0400 Body temperature 98 [degF] No Primary Care Physician [facility] 03-29-2025 11:58-0400 Diastolic blood pressure 64 mm[Hg] No Primary Care Physician [facility] 03-29-2025 11:58-0400 Heart rate 94 /min No Primary Care Physician [facility] 03-29-2025 11:58-0400 Respiratory rate 19 /min No Primary Care Physician [facility] 03-29-2025 11:58-0400 SaO2% (BldA) [Mass fraction] 99 % No Primary Care Physician [facility] 03-29-2025 11:58-0400 Systolic blood pressure 98 mm[Hg] No Primary Care Physician [facility] 03-21-2025 09:58-0400 Body mass index (BMI) [Ratio] 36.3 kg/m2 No Primary Care Physician [facility] 03-21-2025 09:58-0400 Body weight 84.48 kg No Primary Care Physician [facility] 03-21-2025 09:58-0400 Diastolic blood pressure 78 mm[Hg] No Primary Care Physician [facility] 03-21-2025 09:58-0400 Systolic blood pressure 116 mm[Hg] No Primary Care Physician [facility] 03-07-2025 10:01-0400 Body mass index (BMI) [Ratio] 36.3 kg/m2 No Primary Care Physician [facility] 03-07-2025 10:01-0400 Body weight 84.36 kg No Primary Care Physician [facility] 03-07-2025 10:01-0400 Diastolic blood pressure 64 mm[Hg] No Primary Care Physician [facility] 03-07-2025 10:01-0400 Systolic blood pressure 102 mm[Hg] No Primary Care Physician [facility] 02-21-2025 15:14-0400 Body height 152.4 cm No Primary Care Physician [facility] 02-21-2025 15:14-0400 Body mass index (BMI) [Ratio] 35.7 kg/m2 No Primary Care Physician [facility] 02-21-2025 15:14-0400 Body weight 83.06 kg No Primary Care Physician [facility] 02-21-2025 15:14-0400 Diastolic blood pressure 70 mm[Hg] No Primary Care Physician [facility] 02-21-2025 15:14-0400 Systolic blood pressure 112 mm[Hg] No Primary Care Physician [facility] 01-24-2025 10:10-0500 Body mass index (BMI) [Ratio] 35.6 kg/m2 No Primary Care Physician [facility] 01-24-2025 10:10-0500 Body weight 82.66 kg No Primary Care Physician [facility] 01-24-2025 10:10-0500 Diastolic blood pressure 72 mm[Hg] No Primary Care Physician [facility] 01-24-2025 10:10-0500 Systolic blood pressure 114 mm[Hg] No Primary Care Physician [facility] 12-27-2024 10:02-0500 Body mass index (BMI) [Ratio] 34.8 kg/m2 No Primary Care Physician [facility] 12-27-2024 10:02-0500 Body weight 80.96 kg No Primary Care Physician [facility] 12-27-2024 10:02-0500 Diastolic blood pressure 64 mm[Hg] No Primary Care Physician [facility] 12-27-2024 10:02-0500 Systolic blood pressure 103 mm[Hg] No Primary Care Physician [facility] 11-29-2024 09:58-0500 Body mass index (BMI) [Ratio] 34.7 kg/m2 No Primary Care Physician [facility] 11-29-2024 09:58-0500 Body weight 80.51 kg No Primary Care Physician [facility] 11-29-2024 09:58-0500 Diastolic blood pressure 78 mm[Hg] No Primary Care Physician [facility] 11-29-2024 09:58-0500 Systolic blood pressure 124 mm[Hg] No Primary Care Physician [facility] 10-31-2024 11:20-0500 Body mass index (BMI) [Ratio] 34.8 kg/m2 No Primary Care Physician [facility] 10-31-2024 11:20-0500 Body weight 80.9 kg No Primary Care Physician [facility] 10-31-2024 11:20-0500 Diastolic blood pressure 76 mm[Hg] No Primary Care Physician [facility] 10-31-2024 11:20-0500 Systolic blood pressure 112 mm[Hg] No Primary Care Physician [facility] 09-18-2022 14:00-0400 Body temperature 98 [degF] [facility] Work Phone: 09-18-2022 14:00-0400 Diastolic blood pressure 71 mm[Hg] [facility] Work Phone: 09-18-2022 14:00-0400 Heart rate 86 /min [facility] Work Phone: 09-18-2022 14:00-0400 Respiratory rate 16 /min [facility] Work Phone: 09-18-2022 14:00-0400 SaO2% (BldA) [Mass fraction] 100 % [facility] Work Phone: 09-18-2022 14:00-0400 Systolic blood pressure 116 mm[Hg] [facility] Work Phone: 09-16-2022 07:31-0400 Body height 152.4 cm [facility] Work Phone: 09-16-2022 07:31-0400 Body mass index (BMI) [Ratio] 36.5 kg/m2 [facility] Work Phone: 09-16-2022 07:31-0400 Body weight 84.82 kg [facility] Work Phone: Encounters Encounter Date Encounter Type Care Provider Facility Start: 05-15-2025 ambulatory No Primary Car e Physician Facility:[facility] Start: 05-09-2025 End: 05-09-[address] Aarti Escalante DO -[facility] Work Phone: Start: 05-09-2025 End: 05-09-2025 ambulatory No Primary Care Physician [facility] Work Phone: Start: 05-02-2025 End: 05-02-2025 Patient encounter procedure Niya Alicea [facility] Work Phone: Start: 05-02-2025 End: 05-02-2025 ambulatory No Primary Care Physician [facility] Work Phone: Start: 04-26-2025 End: 04-26-2025 Patient encounter procedure Meryl Smith [facility] Work Phone: Start: 04-26-2025 End: 04-26-2025 ambulatory No Primary Care Physician [facility] Work Phone: Start: 04-18-2025 End: 04-18-2025 Patient encounter procedure Niya Alicea [facility] Work Phone: Start: 04-18-2025 End: 04-18-2025 ambulatory No Primary Care Physician [facility] Work Phone: Start: 04-17-2025 End: 04-18-2025 ambulatory No Primary Care Physician [facility] Work Phone: Start: 04-17-2025 End: 04-17-[address] Ayaka Lozano MD -[facility] Work Phone: Start: 04-17-2025 End: 04-17-2025 ambulatory No Primary Care Physician Facility:[facility] Start: 04-04-2025 End: 04-04-[address] Ayaka Lozano MD -[facility] Work Phone: Start: 04-04-2025 End: 04-04-2025 ambulatory No Primary Care Physician [facility] Work Phone: Start: 03-29-2025 End: 03-29-2025 Emergency department patient visit No Primary Care Physician -Emergency Department Work Phone: Start: 03-21-2025 End: 03-21-2025 Patient encounter procedure Niya Alicea CNM -[facility] Work Phone: Start: 03-21-2025 End: 03-21-2025 ambulatory No Primary Care Physician Facility:[facility] Start: 03-07-2025 End: 03-07-[address] Aarti Escalante DO -[facility] Work Phone: Start: 03-07-2025 End: 03-07-2025 ambulatory Aarti Escalante Facility:[facility] Start: 02-21-2025 End: 02-21-[address] Aarti Escalante DO -[facility] Work Phone: Start: 02-21-2025 End: 02-21-2025 ambulatory No Primary Care Physician [facility] Work Phone: Start: 02-21-2025 End: 02-21-2025 ambulatory No Primary Care Physician Facility:[facility] Start: 01-24-2025 End: 01-24-2025 ambulatory No Primary Care Physician Facility:[facility] Start: 01-24-2025 End: 01-24-[address] Ayaka Lozano MD -[facility] Work Phone: Start: 01-22-2025 End: 01-22-2025 ambulatory MD [facility] Start: 12-27-2024 End: 12-27-[address] Aarti Escalante DO -[facility] Work Phone: Start: 12-27-2024 End: 12-27-2024 ambulatory Marlen Primary Care Physician Facility:[facility] Start: 12-18-2024 End: 12-18-2024 ambulatory AARTI KANG [facility] Start: 11-29-2024 End: 11-29-2024 Patient encounter procedure Marielos Rock [facility] -Lab, [facility] Start: 11-29-2024 End: 11-29-2024 ambulatory Marielos Rock NP Facility:[facility] Start: 10-31-2024 End: 10-31-[address] Aarti Escalante DO -[facility] Work Phone: Start: 10-31-2024 End: 10-31-2024 ambulatory No Primary Care Physician Facility:[facility] Start: 10-03-2024 End: 10-03-2024 ambulatory No Primary Care Physician Facility:[facility] Start: 10-03-2024 End: 10-03-2024 ambulatory No Primary Care Physician Facility:[facility] Start: 09-21-2024 ambulatory Nimisha Yost Facility :[facility] Start: 09-16-2022 End: 09-18-2022 Evaluation and management of inpatient [facility] Start: 08-10-2022 End: 08-10-2022 ambulatory [facility] Work Phone: Start: 08-10-2022 End: 08-10-2022 Patient encounter procedure [facility], Specimen Start: 06-17-2022 End: 06-17-2022 Patient encounter procedure [facility], [place] 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 Procedures Date Procedure Procedure Detail Performing Clinician Start: 04-17-2025 Ultrasound scan for growth No Primary Care Physician Start: 03-29-2025 X-ray of ankle, thre e or more views No Primary Care Physician Start: 02-21-2025 Antibody screen No Prim cleopatra Care Physician Comment on above: Order Comment: PN Performed By: #### L 3890.6006, L100.0100, W58579-9, BTS, L501.0250, L509.8002 #### [facility] [address] [place], [address] Start: 02-21-2025 Serologic test for syphilis No Primary Care Physician Group B Streptococcu s Culture Plan of Treatment Date Care Activity Detail Author Start: 04-18-2025 CBC W Auto Different ial panel - Blood [facility] Start: 04-18-2025 Comprehensive metabo lic 2000 panel - Serum or Plasma [facility] Start: 04-18-2025 Protein/Creatinine [ Ratio] in Urine [facility] Start: 03-29-2025 [facility] Start: 09-18-2022 Patient discharge [facility] Work Phone: Start: 09-16-2022 Administration of medication [facility] Work Phone: Start: 09-16-2022 Application of ice c ollar, cap or bag [facility] Work Phone: Start: 09-16-2022 Catheterization of vein [facility] Work Phone: Start: 09-16-2022 Introduction of urinary catheter [facility] Work Phone: Start: 09-16-2022 Measuring intake and output [facility] Work Phone: Start: 09-16-2022 Notification of physician [facility] Work Phone: Start: 09-16-2022 Procedure discontinued [facility] Work Phone: Start: 09-16-2022 Provision of activity privileges [facility] Work Phone: Start: 09-16-2022 Vital signs measurements [facility] Work Phone: Start: 09-16-2022 [facility] Work Phone: Start: 09-16-2022 Admission procedure [facility] Work Phone: Start: 09-16-2022 Verification routine [facility] Work Phone: Alanine aminotransfe rase [Enzymatic activity/volume] in Serum or Plasma [facility] Albumin [Mass/volume ] in Serum or Plasma [facility] Alkaline phosphatase [Enzymatic activity/volume] in Serum or Plasma [facility] Anion gap in Serum or Plasma [facility] Anti-D (Rh) immunoglobulin [facility] Bilirubin, total measurement [facility] BUN/Creatinine ratio [facility] Calcium [Mass/volume ] in Serum or Plasma [facility] Carbon dioxide, tota l [Moles/volume] in Central venous blood [facility] Creatinine [Mass/vol ume] in Serum or Plasma [facility] Creatinine [Mass/vol ume] in Urine collected for unspecified duration [facility] ospital Erythrocyte mean cor puscular volume determination [facility] Glucose [Mass/volume ] in Serum or Plasma [facility] Hematocrit [Volume F raction] of Blood [facility] Hemoglobin [Mass/volume] in Blood [facility] Leukocytes [#/volume] in Blood [facility] Mean corpuscular hem oglobin concentration determination [facility] Mean corpuscular hem oglobin determination [facility] Measurement of renal function [facility] Neutrophil count [facility] Neutrophil percent d ifferential count [facility] Patient Education [facility] Work Phone: Patient referral [facility] Work Phone: Platelets [#/volume] in Blood [facility] Potassium measurement [facility] Protein [Mass/volume] in Urine [facility] Protein/Creatinine [ Mass Ratio] in Urine [facility] Red blood cell count [facility] Red cell distributio n width determination [facility] Serum chloride measurement [facility] Sodium measurement [facility] Total protein measurement [facility] Urea nitrogen [Mass/ volume] in Serum or Plasma [facility] Immunizations Immunization Date Immunization Notes Care Provider Fa cility 03-07-2025 tetanus toxoid, redu jordana diphtheria toxoid, and acellular pertussis vaccine, adsorbed No Primary Care Physician [facility] 11-29-2024 influenza, injectabl e, madin miguel canine kidney, preservative free No Primary Care Physician [facility] Payers Date Payer Category Payer Self-pay [id number] 2024 Private Health Insurance [id number] 1990 Unknown [id number] 2.16. [id number] 1990 Unknown [id number] 2.16. [id number] Unknown [id number] Unknown [id number] Unknown [id number] 2.16.8 [id number] Unknown [id number] 2.16.8 40.1.754236.3.579.2.462 Unknown [id number] 2.16.8 40.1.940063.3.579.2.462 Unknown [id number] 2.16.8 40.1.201445.3.579.2.462 Unknown [id number] 2.16.8 40.1.329209.3.579.2.462 Unknown [id number] 2.16.8 40.1.065844.3.579.2.462 Unknown [id number] 2.16.8 40.1.209536.3.579.2.462 Unknown [id number] 2.16.8 40.1.823002.3.579.2.462 Unknown [id number] 2.16.8 40.1.060768.3.579.2.462 Unknown [id number] 2.16.8 40.1.244545.3.579.2.462 Unknown [id number] 2.16.8 40.1.364180.3.579.2.462 Unknown [id number] 2.16.8 40.1.515801.3.579.2.462 Unknown [id number] 2.16.8 40.1.533321.3.579.2.462 Unknown [id number] 2.16.8 40.1.728816.3.579.2.462 Unknown [id number] 2.16.8 40.1.313536.3.579.2.462 Unknown [id number] 2.16.8 40.1.479298.3.579.2.462 Unknown [id number] 2.16.8 40.1.685583.3.579.2.462 Unknown [id number] 2.16.8 40.1.802841.3.579.2.462 Unknown [id number] 2.16.8 40.1.491062.3.579.2.462 Unknown [id number] 2.16.8 40.1.911848.3.579.2.462 Unknown [id number] 2.16.8 40.1.675328.3.579.2.462 Social History Date Type Detail Facility [facility] Work Phone: Start: 1990 Sex Assigned At Female [facility] Start: 09-16-2022 Tobacco smoking stat [facility] Unknown if ever smoked [facility] Work Phone: Start: 09-21-2024 End: 03-29-2025 Tobacco smoking status NHIS Never smoked tobacco (finding) [facility] Start: 02-26-2025 Sex Female (finding) [facility] Goals Date Patient Goal Desired Activity /State Clinical Notes 09-18-2022 to 05-09-2025 Note Date & Type Note Facility 05-09-2025 Progress note [facility] 05-02-2025 Progress note [facility] 04-26-2025 Progress note [facility] 04-17-2025 Radiology Diagnostic study note [facility] Imaging Services [address] [place] [address] OB Limited With Biometrics MR#: [id number] Acct: [id number] Name: KIRK CARVALHO Rep #: [id number] : 1990 F 34 From: Quinn Stratton MD PCP: Care Physician,No Primary Status: REG CLI Study:OB Limited With Biometrics Date of Exam : 04/17/25 Exam# [id number] Ordering Dr: Ayaka Feldman MD PROCEDURE: OB LIMITED WITH BIOMETRICS 04/17/2025 REASON FOR EXAM: GROWTH TECHNIQUE: High resolution obstetric ultrasound performed using a 2D transducer. Standard views obtained, including biometry, anatomy survey, and Doppler studies. COMPARISON: None. FINDINGS Number: 1 Position: Cephalic. Placental Position: Anterior. Placental Abnormalities: Nonvisualized. DIMENSIONS: Biparietal Diameter: 35 weeks 2 days/38% Head Circumference: 38 weeks 4 days/86% Abdominal Circumference: 37 weeks 1 day/46% Femur Length: 36 weeks 2 days/60% ESTIMATED WEIGHT: 2772 g +/-416 g ESTIMATED WEIGHT PERCENTILE (24+ weeks): 46% age by current ultrasound of 36 weeks and 2 days. JUAN by current ultrasound of 05/13/2025. age by LMP of 36 weeks and 0 days. JUAN by LMP of 05/15/2025. BIOPHYSICAL ASSESSMENT: Maximum vertical pocket of 7.3 cm. Amniotic Fluid Index: 19.4 cm (8-24 cm normal range) Cardiac Motion: 120 beats per minute. (Average) Trunk and Limb Motion: Present. MATERNAL ANATOMY: Adnexa: No visualized abnormalities. Cervical Length (if measured): Not visualized. US/OB Limited With Biometrics IMPRESSION: Single live intrauterine as above. Reading Location: [id number] CC: Dr. Ayaka Lozano MD; No Primary Care Physician ~ Rattling Machine Tender: Signed [facility] 04-04-2025 Progress note [facility] 03-29-2025 Radiology Diagnostic study note [facility] Imaging Services [address] [place] [id number] Ankle min 3 Views MR#: [id number] Acct: [id number] Name: KIRK CARVALHO Rep #: [id number] : 1990 F 34 From: Ernie Villarreal MD PCP: Care Physician,No Primary Status: REG ER Study:Ankle min 3 Views Date of Exam: Exam# [id number] Ordering Dr: Hector Abrams DO PROCEDURE: ANKLE MIN 3 VIEWS 03/29/2025 REASON FOR EXAM: PAIN. Injury. TECHNIQUE: 3 views of the left ankle COMPARISON: None. RAD/Ankle min 3 Views IMPRESSION: On the lateral view, a moderate inferior calcaneal spur is seen. Normal contour of the Achilles tendon is noted. No ankle joint effusion is identified. Satisfactory osseous alignment is seen throughout. No acute fracture or dislocation is seen. If clinical concern persists, short-term follow-up imaging may be obtained to rule out a currently occult fracture. Reading Location: [facility] CC: Dr. Hector Abrams DO; No Primary Care Physician ~ Rattling Machine Tender: Signed [facility] 01-24-2025 Evaluation note Diagnosis Onset Date Resolution AMA (advanced maternal age) multigravida 35+ acute January 24, 2025 9:53am Choroid plexus cyst acute January 24, 2025 9:53am GBS (group B streptococcus) UTI complicating acute January 9:53am History of infertility acute [facility] 2024 9:53am Obesity affecting acute January 24, 2025 9:53am acute January 24 9:53am Rh negative status during acute January 24, 2025 9:53am Supervision of high-risk acute January 24, 2 025 9:53am AMA (advanced maternal age) multigravida 35+ acute February 21, 2025 2:40pm Choroid plexus cyst acute February 21, 2025 2:40pm GBS (group B streptococcus) UTI complicating acute February 2:40pm History of infertility acute Ap 2024 2:40pm Obesity affecting acute February 21, 2025 2:40pm acute February 21 2:40pm Rh negative status during acute February 21, 2025 2:40pm Supervision of high-risk acute February 21, 2 025 2:40pm AMA (advanced maternal age) multigravida 35+ acute February 9:49am Choroid plexus cyst acute March 07, 2025 9:49am GBS (group B streptococcus) UTI complicating acute February 9:49am History of infertility acute Ap 2024 9:49am Obesity affecting acute March 07, 2025 9:49am acute March 07 9:49am Rh negative status during acute March 07 9:49am Supervision of high-risk acute March 07, 2025 9:49am AMA (advanced maternal age) multigravida 35+ acute March 21 025 9:52am Choroid plexus cyst acute March 212024 9:52am GBS (group B streptococcus) UTI complicating acute March 21, 2025 9:52am History of infertility acute 2024 9:52am Obesity affecting acute March 21, 2025 9: 52am acute March 21, 2025 9:52am Rh negative status during acute March 21, 2025 9 :52am Supervision of high-risk acute March 21 9:52am AMA (advanced maternal age) multigravida 35+ acute April 04, 2025 10:04am Choroid plexus cyst acute March 212024 10:04am GBS (group B streptococcus) UTI complicating acute April 04, 2025 10:04am History of infertility acute Ma y 2024 10:04am Obesity affecting acute April 04, 2025 10:04am acute April 04, 2025 10:04am Rh negative status during acute April 04, 2025 10:04am Supervision of high-risk acute April 04 10:04am AMA (advanced maternal age) multigravida 35+ acute April 18, 2025 9:56am Choroid plexus cyst acute March 222024 9:56am GBS (group B streptococcus) UTI complicating acute April 18, 2025 9:56am History of infertility acute 2024 9:56am Obesity affecting acute April 18, 2025 9 :56am acute April 18, 2025 9:56am Rh negative status during acute April 18, 2025 9:56am Supervision of high-risk acute April 18 9:56am AMA (advanced maternal age) multigravida 35+ acute April 26, 2025 10:20am Choroid plexus cyst acute April 26, 2025 10:20am GBS (group B streptococcus) UTI complicating acute April 26, 2025 10:20am History of infertility acute 2024 10:20am Obesity affecting acute April 26, 2025 10:20am acute April 26, 2025 10:20am Rh negative status during acute April 26, 2025 10:20am Supervision of high-risk acute April 26 10:20am AMA (advanced maternal age) multigravida 35+ acute May 02, 2025 9:46am Choroid plexus cyst acute May 02, 2025 9:46am GBS (group B streptococcus) UTI complicating acute April 9:46am History of infertility acute 2024 9:46am Obesity affecting acute May 02, 2025 9:46am acute May 02 9:46am Rh negative status during acute May 02, 2025 9:46am Supervision of high-risk acute May 02 9:46am [facility] Work Phone: 1(858) 804-793303-06-2025 Evaluation note* Diagnosis Onset Date Resolution Status Admit Date AMA (advanced maternal age) multigravida 35+ acute January 24, 2025 9:53am Choroid plexus cyst acute January 24, 2025 9:53am GBS (group B streptococcus) UTI complicating acute January 9:53am History of infertility acute Ma h 2024 9:53am Obesity affecting acute January 24, 2025 9:53am acute January 24 9:53am Rh negative status during acute January 24, 2025 9:53am Supervision of high-risk acute January 24, 2025 9:53am AMA (advanced maternal age) multigravida 35+ acute February 21, 2025 2:40pm Choroid plexus cyst acute February 21, 2025 2:40pm GBS (group B streptococcus) UTI complicating acute February 2:40pm History of infertility acute Ap 2024 2:40pm Obesity affecting acute February 21, 2025 2:40pm acute February 21 2:40pm Rh negative status during acute February 21, 2025 2:40pm Supervision of high-risk acute February 21, 2025 2:40pm AMA (advanced maternal age) multigravida 35+ acute March 07 9:49am Choroid plexus cyst acute March 07, 2025 9:49am GBS (group B streptococcus) UTI complicating acute February 9:49am History of infertility acute Ap 2024 9:49am Obesity affecting acute March 07, 2025 9:49am acute March 07 9:49am Rh negative status during acute March 07, 2025 9:49am Supervision of high-risk acute March 07, 2025 9:49am AMA (advanced maternal age) multigravida 35+ acute March 21, 2025 9 :52am Choroid plexus cyst acute March 212024 9:52am GBS (group B streptococcus) UTI complicating acute March 21, 2025 9:52am History of infertility acute Ma 2024 9:52am Obesity affecting acute March 21, 2025 9:52am acute March 21, 2025 9:52am Rh negative status during acute March 21, 2025 9: 52am Supervision of high-risk acute March 21, 2025 9: 52am AMA (advanced maternal age) multigravida 35+ acute April 04, 2025 10:04am Choroid plexus cyst acute March 212024 10:04am GBS (group B streptococcus) UTI complicating acute April 04, 2025 10:04am History of infertility acute 2024 10:04am Obesity affecting acute April 04, 2025 10:04am acute April 04, 2025 10:04am Rh negative status during acute April 04, 2025 1 0:04am Supervision of high-risk acute April 04, 2025 1 0:04am AMA (advanced maternal age) multigravida 35+ acute April 18, 2025 9:56am Choroid plexus cyst acute March 222024 9:56am GBS (group B streptococcus) UTI complicating acute April 18, 2025 9:56am History of infertility acute 2024 9:56am Obesity affecting acute April 18, 2025 9:56am acute April 18, 2025 9:56am Rh negative status during acute April 18, 2025 9 :56am Supervision of high-risk acute April 18, 2025 9 :56am AMA (advanced maternal age) multigravida 35+ acute April 26, 2025 10:20am Choroid plexus cyst acute April 26, 2025 10:20am GBS (group B streptococcus) UTI complicating acute April 26, 2025 10:20am History of infertility acute 2024 10:20am Obesity affecting acute April 26, 2025 10:20am acute April 26, 2025 10:20am Rh negative status during acute April 26, 2025 1 0:20am Supervision of high-risk acute April 26, 2025 1 0:20am AMA (advanced maternal age) multigravida 35+ acute May 02, 2025 9:46am Choroid plexus cyst acute May 02, 2025 9:46am GBS (group B streptococcus) UTI complicating acute April 9:46am History of infertility acute 2024 9:46am Obesity affecting acute May 02, 2025 9:46am acute May 02 9:46am Rh negative status during acute May 02, 2025 9:46am Supervision of high-risk acute May 02, 2025 9:46am AMA (advanced maternal age) multigravida 35+ acute May 09, 2025 9:46am Choroid plexus cyst acute May 09, 2025 9:46am GBS (group B streptococcus) UTI complicating acute April 9:46am History of infertility acute Ju ne 2024 9:46am Obesity affecting acute May 09, 2025 9:46am acute May 09 9:46am Rh negative status during acute May 09, 2025 9:46am Supervision of high-risk acute May 09, 2025 9:46am [facility] Work Phone: 1(129) 599-342202-06-2025 Evaluation note* Diagnosis Onset Date Resolution Status Admit Date AMA (advanced maternal age) multigravida 35+ acute December 27 9:58am GBS (group B streptococcus) UTI complicating acute Febru cleopatra2024 9:58am History of infertility acute [facility]2024 9:58am Obesity affecting acute December 27, 2024 9:58am acute December 27, 2024 9:58am Rh negative status during acute December 27 9:58am Supervision of high-risk acute December 27 9:58am Choroid plexus cyst of fetus deleted December 27, 2024 9:58am AMA (advanced maternal age) multigravida 35+ acute January 24, 2025 9:53am Choroid plexus cyst acute January 24, 2025 9:53am GBS (group B streptococcus) UTI complicating acute January 24, 2025 9:53am History of infertility acute [facility] 2024 9:53am Obesity affecting acute January 24, 2025 9:53am acute January 24 9:53am Rh negative status during acute January 24, 2025 9:53am Supervision of high-risk acute January 24, 2025 9:53am AMA (advanced maternal age) multigravida 35+ acute February 21, 2025 2:40pm Choroid plexus cyst acute February 21, 2025 2:40pm GBS (group B streptococcus) UTI complicating acute February 21, 2025 2:40pm History of infertility acute Ap ril 2024 2:40pm Obesity affecting acute February 21, 2025 2:40pm acute February 21 2:40pm Rh negative status during acute February 21, 2025 2:40pm Supervision of high-risk acute February 21, 2025 2:40pm AMA (advanced maternal age) multigravida 35+ acute March 07 9:49am Choroid plexus cyst acute March 07, 2025 9:49am GBS (group B streptococcus) UTI complicating acute March 07, 2025 9:49am History of infertility acute Ap 2024 9:49am Obesity affecting acute March 07, 2025 9:49am acute March 07 9:49am Rh negative status during acute March 07, 2025 9:49am Supervision of high-risk acute March 07, 2025 9:49am AMA (advanced maternal age) multigravida 35+ acute March 21, 2025 9 :52am Choroid plexus cyst acute March 212024 9:52am GBS (group B streptococcus) UTI complicating acute March 212024 9:52am History of infertility acute 2024 9:52am Obesity affecting acute March 21, 2025 9:52am acute March 21, 2025 9:52am Rh negative status during acute March 21, 2025 9: 52am Supervision of high-risk acute March 21, 2025 9: 52am AMA (advanced maternal age) multigravida 35+ acute April 04, 2025 10:04am Choroid plexus cyst acute March 212024 10:04am GBS (group B streptococcus) UTI complicating acute March 212024 10:04am History of infertility acute Ma y 2024 10:04am Obesity affecting acute April 04, 2025 10:04am acute April 04, 2025 10:04am Rh negative status during acute April 04, 2025 1 0:04am Supervision of high-risk acute April 04, 2025 1 0:04am [facility] Work Phone: 1(354) 860-555902-06-2025 Evaluation note* Diagnosis Onset Date Resolution Status Admit Date AMA (advanced maternal age) multigravida 35+ acute December 27 025 9:58am GBS (group B streptococcus) UTI complicating acute Febru cleopatra 2024 9:58am History of infertility acute Fe bruary 2024 9:58am Obesity affecting acute December 27, 2024 9:58am acute December 27, 2024 9:58am Rh negative status during acute December 27 9:58am Supervision of high-risk acute December 27 9:58am Choroid plexus cyst of fetus deleted December 27, 2024 9:58am AMA (advanced maternal age) multigravida 35+ acute January 24, 2025 9:53am Choroid plexus cyst acute January 24, 2025 9:53am GBS (group B streptococcus) UTI complicating acute January 24, 2025 9:53am History of infertility acute Ma [facility] 2024 9:53am Obesity affecting acute January 24, 2025 9:53am acute January 24 9:53am Rh negative status during acute January 24, 2025 9:53am Supervision of high-risk acute January 24, 2025 9:53am AMA (advanced maternal age) multigravida 35+ acute February 21, 2025 2:40pm Choroid plexus cyst acute February 21, 2025 2:40pm GBS (group B streptococcus) UTI complicating acute February 21, 2025 2:40pm History of infertility acute Ap ril 2024 2:40pm Obesity affecting acute February 21, 2025 2:40pm acute February 21 2:40pm Rh negative status during acute February 21, 2025 2:40pm Supervision of high-risk acute February 21, 2025 2:40pm AMA (advanced maternal age) multigravida 35+ acute March 07 9:49am Choroid plexus cyst acute March 07, 2025 9:49am GBS (group B streptococcus) UTI complicating acute March 07, 2025 9:49am History of infertility acute Ap ril 2024 9:49am Obesity affecting acute March 07, 2025 9:49am acute March 07 9:49am Rh negative status during acute March 07, 2025 9:49am Supervision of high-risk acute March 07, 2025 9:49am AMA (advanced maternal age) multigravida 35+ acute March 21, 2025 9 :52am Choroid plexus cyst acute March 212024 9:52am GBS (group B streptococcus) UTI complicating acute March 212024 9:52am History of infertility acute 2024 9:52am Obesity affecting acute March 21, 2025 9:52am acute March 21, 2025 9:52am Rh negative status during acute March 21, 2025 9: 52am Supervision of high-risk acute March 21, 2025 9: 52am AMA (advanced maternal age) multigravida 35+ acute April 04, 2025 10:04am Choroid plexus cyst acute March 212024 10:04am GBS (group B streptococcus) UTI complicating acute March 212024 10:04am History of infertility acute 2024 10:04am Obesity affecting acute April 04, 2025 10:04am acute April 04, 2025 10:04am Rh negative status during acute April 04, 2025 1 0:04am Supervision of high-risk acute April 04, 2025 1 0:04am AMA (advanced maternal age) multigravida 35+ acute April 18, 2025 9:56am Choroid plexus cyst acute March 222024 9:56am GBS (group B streptococcus) UTI complicating acute March 222024 9:56am History of infertility acute 2024 9:56am Obesity affecting acute April 18, 2025 9:56am acute April 18, 2025 9:56am Rh negative status during acute April 18, 2025 9 :56am Supervision of high-risk acute April 18, 2025 9 :56am [facility] Work Phone: 1(502) 625-813502-06-2025 Evaluation note* Diagnosis Onset Date Resolution Status Admit Date AMA (advanced maternal age) multigravida 35+ acute December 27, 2 025 9:58am GBS (group B streptococcus) UTI complicating acute Febru cleopatra2024 9:58am History of infertility acute Fe bru2024 9:58am Obesity affecting acute December 27, 2024 9:58am acute December 27, 2024 9:58am Rh negative status during acute December 27 9:58am Supervision of high-risk acute December 27 9:58am Choroid plexus cyst of fetus deleted December 27, 2024 9:58am AMA (advanced maternal age) multigravida 35+ acute January 24, 2025 9:53am Choroid plexus cyst acute January 24, 2025 9:53am GBS (group B streptococcus) UTI complicating acute January 24, 2025 9:53am History of infertility acute Ma h 2024 9:53am Obesity affecting acute January 24, 2025 9:53am acute January 24 9:53am Rh negative status during acute January 24, 2025 9:53am Supervision of high-risk acute January 24, 2025 9:53am AMA (advanced maternal age) multigravida 35+ acute February 21, 2025 2:40pm Choroid plexus cyst acute February 21, 2025 2:40pm GBS (group B streptococcus) UTI complicating acute February 21, 2025 2:40pm History of infertility acute Ap 2024 2:40pm Obesity affecting acute February 21, 2025 2:40pm acute February 21 2:40pm Rh negative status during acute February 21, 2025 2:40pm Supervision of high-risk acute February 21, 2025 2:40pm AMA (advanced maternal age) multigravida 35+ acute March 07 9:49am Choroid plexus cyst acute March 07, 2025 9:49am GBS (group B streptococcus) UTI complicating acute March 07, 2025 9:49am History of infertility acute Ap ril 2024 9:49am Obesity affecting acute March 07, 2025 9:49am acute March 07 9:49am Rh negative status during acute March 07, 2025 9:49am Supervision of high-risk acute March 07, 2025 9:49am AMA (advanced maternal age) multigravida 35+ acute March 21, 2025 9 :52am Choroid plexus cyst acute March 212024 9:52am GBS (group B streptococcus) UTI complicating acute March 212024 9:52am History of infertility acute 2024 9:52am Obesity affecting acute March 21, 2025 9:52am acute March 21, 2025 9:52am Rh negative status during acute March 21, 2025 9: 52am Supervision of high-risk acute March 21, 2025 9: 52am AMA (advanced maternal age) multigravida 35+ acute April 04, 2025 10:04am Choroid plexus cyst acute March 212024 10:04am GBS (group B streptococcus) UTI complicating acute March 212024 10:04am History of infertility acute 2024 10:04am Obesity affecting acute April 04, 2025 10:04am acute April 04, 2025 10:04am Rh negative status during acute April 04, 2025 1 0:04am Supervision of high-risk acute April 04, 2025 1 0:04am AMA (advanced maternal age) multigravida 35+ acute April 18, 2025 9:56am Choroid plexus cyst acute March 222024 9:56am GBS (group B streptococcus) UTI complicating acute March 222024 9:56am History of infertility acute 2024 9:56am Obesity affecting acute April 18, 2025 9:56am acute April 18, 2025 9:56am Rh negative status during acute April 18, 2025 9 :56am Supervision of high-risk acute April 18, 2025 9 :56am AMA (advanced maternal age) multigravida 35+ acute April 26, 2025 10:20am Choroid plexus cyst acute April 26, 2025 10:20am GBS (group B streptococcus) UTI complicating acute April 26, 2025 10:20am History of infertility acute 2024 10:20am Obesity affecting acute April 26, 2025 10:20am acute April 26, 2025 10:20am Rh negative status during acute April 26, 2025 1 0:20am Supervision of high-risk acute April 26, 2025 1 0:20am [facility] Work Phone: 1(110) [phone] Evaluation note* Diagnosis Onset Date Resolution Status Admit Date AMA (advanced maternal age) multigravida 35+ acute November 29 9:56am GBS (group B streptococcus) UTI complicating acute Janua ry 2024 9:56am History of infertility acute Ja nuary 2024 9:56am Obesity affecting acute November 29, 2024 9:56am acute November 29, 2 025 9:56am Rh negative status during acute November 29 9:56am Supervision of high-risk acute November 29 9:56am AMA (advanced maternal age) multigravida 35+ acute December 27 025 9:58am GBS (group B streptococcus) UTI complicating acute Febru cleopatra 2024 9:58am History of infertility acute Fe bruary 2024 9:58am Obesity affecting acute December 27, 2024 9:58am acute December 27, 2024 9:58am Rh negative status during acute December 27 9:58am Supervision of high-risk acute December 27 9:58am Choroid plexus cyst of fetus deleted December 27, 2024 9:58am AMA (advanced maternal age) multigravida 35+ acute January 24, 2025 9:53am Choroid plexus cyst acute January 24, 2025 9:53am GBS (group B streptococcus) UTI complicating acute January 24, 2025 9:53am History of infertility acute Ma [facility] 2024 9:53am Obesity affecting acute January 24, 2025 9:53am acute January 24 9:53am Rh negative status during acute January 24, 2025 9:53am Supervision of high-risk acute January 24, 2025 9:53am AMA (advanced maternal age) multigravida 35+ acute February 21, 2025 2:40pm Choroid plexus cyst acute February 21, 2025 2:40pm GBS (group B streptococcus) UTI complicating acute February 21, 2025 2:40pm History of infertility acute Ap ril 2024 2:40pm Obesity affecting acute February 21, 2025 2:40pm acute February 21 2:40pm Rh negative status during acute February 21, 2025 2:40pm Supervision of high-risk acute February 21, 2025 2:40pm AMA (advanced maternal age) multigravida 35+ acute March 07 9:49am Choroid plexus cyst acute March 07, 2025 9:49am GBS (group B streptococcus) UTI complicating acute March 07, 2025 9:49am History of infertility acute Ap 2024 9:49am Obesity affecting acute March 07, 2025 9:49am acute March 07 9:49am Rh negative status during acute March 07, 2025 9:49am Supervision of high-risk acute March 07, 2025 9:49am AMA (advanced maternal age) multigravida 35+ acute March 21, 2025 9 :52am Choroid plexus cyst acute March 212024 9:52am GBS (group B streptococcus) UTI complicating acute March 212024 9:52am History of infertility acute 2024 9:52am Obesity affecting acute March 21, 2025 9:52am acute March 21, 2025 9:52am Rh negative status during acute March 21, 2025 9: 52am Supervision of high-risk acute March 21, 2025 9: 52am [facility] Work Phone: 1(453) 698-640812-11-2024 Evaluation note* Diagnosis Onset Date Resolution Status Admit Date AMA (advanced maternal age) multigravida 35+ acute October 31, 2024 11:07am GBS (group B streptococcus) UTI complicating acute Decem 2023 11:07am History of infertility acute De cember 2023 11:07am Obesity affecting acute October 31, 2024 11:07am acute October 31, 2024 11:07am Rh negative status during acute October 31 11:07am Supervision of high-risk acute October 31 11:07am AMA (advanced maternal age) multigravida 35+ acute November 29 9:56am GBS (group B streptococcus) UTI complicating acute Janua ry 2024 9:56am History of infertility acute Ja nuary 2024 9:56am Obesity affecting acute November 29, 2024 9:56am acute November 29, 025 9:56am Rh negative status during acute November 29 9:56am Supervision of high-risk acute November 29 9:56am AMA (advanced maternal age) multigravida 35+ acute December 27 9:58am GBS (group B streptococcus) UTI complicating acute Febru cleopatra 2024 9:58am History of infertility acute [facility] 2024 9:58am Obesity affecting acute December 27, 2024 9:58am acute December 27, 2024 9:58am Rh negative status during acute December 27 9:58am Supervision of high-risk acute December 27 9:58am Choroid plexus cyst of fetus deleted December 27, 2024 9:58am AMA (advanced maternal age) multigravida 35+ acute January 24, 2025 9:53am Choroid plexus cyst acute January 24, 2025 9:53am GBS (group B streptococcus) UTI complicating acute January 24, 2025 9:53am History of infertility acute [facility] 2024 9:53am Obesity affecting acute January 24, 2025 9:53am acute January 24 9:53am Rh negative status during acute January 24, 2025 9:53am Supervision of high-risk acute January 24, 2025 9:53am AMA (advanced maternal age) multigravida 35+ acute February 21, 2025 2:40pm Choroid plexus cyst acute February 21, 2025 2:40pm GBS (group B streptococcus) UTI complicating acute February 21, 2025 2:40pm History of infertility acute Ap ril 2024 2:40pm Obesity affecting acute February 21, 2025 2:40pm acute February 21 2:40pm Rh negative status during acute February 21, 2025 2:40pm Supervision of high-risk acute February 21, 2025 2:40pm [facility] Work Phone: 1(319) 504-337310-29-2022 Hospital Discharge instructions Additional Instructions Regular diet. Weightbearing as tolerated. Okay to shower. No intercourse for 4 to 6 weeks. Call if chest pain, shortness of breath, fevers or chills. Follow-up 4 to 6 weeks [facility] Evaluation noteNo assessment information available [facility] Work Phone: Evaluation note* Diagnosis Onset Date Resolution Status Vaginal delivery acute [facility] Work Phone: Hospital Discharge instructions Additional Instructions Follow-up with your PCP in 1 week if no improvement of your pain. Ice the area and keep elevated if any swelling occurs, you can take Tylenol as needed for pain.[facility] Work Phone: Progress note Author Ayaka Lozano [facility] Note Date/Time April 04, 2025 10:27 am [facility] [address] [place] [address], [address] [place] [address] OFFICE VISIT Date of Service: 04/04/25 MR#: [id number] Acct: [id number] Name: KIRK CARVALHO Rep #: [id number] : 1990 Provider: Dr. Sunny Lozano MD Age/Sex: 34/F Location: [email or web address] Status: Signed Intake Vital Signs 10/31/24 11:22 03/29/25 11:58 04/04/25 10:07 04/04/25 10:13 Height 5 ft 5 ft 5 ft 5 ft Weight: 187 lb BMI 36.5 BP 97/66 Intake Visit Reasons: 34 wk ob 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 Is patient in pain?: No Allergies Penicillins Allergy (Verified 04/04/25 10:08) Vomiting Medications ?Medication ?Instructions ?Recorded ?Confirmed ?Type [id number] 1 mg 1 tab PO DAILY pregna ncy 09/16/22 04/04/25 History tablet cholecalciferol (vitamin D3) 25 25 mcg PO QDAY 4 04/04/25 History mcg (1,000 unit) capsule Last Menstrual Period: 08/08/24 Zika: Zika virus screening: Negative : No PFSH PFSH Family History Mother Endometriosis Lupus Social History adopted: No household members: spouse and children number of children: 1 current occupation: [employer] current occupational exposures/hazards: No pets and animals: Yes history of recent travel: No sexually active: Yes Smoking Status: Never smoker alcohol intake: never substance use type: does not use well-balanced diet: daily or most days caffeine: Yes Type: carbonated beverages Number of servings: 1 eating out: rarely or never during the past year weight has: increased > 10 lbs what type of physical activity do you participate in: walking frequency: 1-2 times per week duration: < 15 minutes/day seatbelt use: always do you feel safe at home: Yes 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 Date Name GA/Weeks Outcome Route Bth Weight Infant Gen Labor Lgth Anesthesia Del Locatn Provider FOB 09/16/22 Tisha 41 live - full term 7lbs Female non e [facility] Doshi HPI 34 wk ob Details: KIRK CARVALHO is a 34 year old who presents for routine OB visit. OB Visit JUAN Calculator Estimated Delivery Date Method Current WG Current Estimate 05/15/25 LMP (Uncertain) 34w 1d Other Estimates 05/13/25 Ultrasound #1 34w 3d Expected Delivery Route/Plan Labor Preferences- CB/BF classes: [] labor support person: [] labor intervention preferences: [] pain management options preferred: [] cut cord/dad catch: [] : [] PP control planned: [] discussed possible routes of delivery and associated risks: [] special requests: [] Specific Issue/Plans Covid status: [] Flu vaccine: given Tdap vaccine: [] Rhogam: given 11/29/24(spotting) LARC form signed: [] Problem list reviewed and updated with the most current plan of care details and appropriate orders placed. Relevant counseling for the gestational age provided. Continue routine care and follow up unless otherwise noted in visit notes/problem list details Initial Weight: 176 lb Date -?-?-?-?-?-?-?-?-?-?-?-?- EGA Weight BP Urine Prot -?-?-?-?-?-?-?-?-?-?-?-?- Glucose FHR FuHt Pres Dilation -?-?-?-?-?-?-?-?-?-?-?-?- Effaced St Visit Note 10/03/24 -?-?-?-?-?-?-?-?-?-?-?-?- 8w 0d 176 lb 8 oz (+8 oz) 133/78 -?-?-?-?-?-?-?-?-?-?-?-?- 180 -?-?-?-?-?-?-?-?-?-?-?-?- KW- CRL cons wit h dates. Declines NIPT. 10/31/24 -?-?-?-?-?-?-?-?-?-?-?-?- 12w 0d 178 lb 6 oz (+2 lb 6 oz) 112/76 Negative -?-?-?--?-?-?-?-?-?-?-?-?- Negative 165 -?-?-?-?-?-?-?-?-?-?-?-?- JV- no lof, vagi nal bleeding, or cramping. anatomy scan ordered 11/29/24 -?-?-?-?-?-?-?-?-?-?-?--?- 16w 1d 177 lb 8 oz (+1 lb 8 oz) 124/78 Negative -?-?-?-?-?-?-?-?-?-?-?-?- Negative 148 -?-?-?-?-?-?-?-?-?-?-?-?- MH-Had episode l ight spotting just over a week ago. T&S plus rhogam today. Feeling flutters. Flu vaccine given. 12/27/24 -?-?-?-?-?-?-?-?-?-?-?-?- 20w 1d 178 lb 8 oz (+2 lb 8 oz) 103/64 Negative -?-?-?-?-?-?-?-?-?-?-?-?- Negative 150 -?-?-?-?-?-?-?-?-?-?-?-?- JV- no lof, vagi nal bleeding, or cramping. 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 01/24/25 -?-?-?-?-?-?-?-?-?-?-?-?- 24w 1d 182 lb 4 oz (+6 lb 4 oz) 114/72 Negative -?-?-?-?-?-?-?-?-?-?-?-?- Negative 150 24 -?-?-?-?-?-?-?-?-?-?-?-?- SM- no vb lof go od fm no regular ctx 02/21/25 -?-?-?-?-?-?-?-?-?-?-?-?- 28w 1d 183 lb 2 oz (+7 lb 2 oz) 112/70 Negative -?-?-?-?-?-?-?-?-?-?-?-?- Negative 145 28 -?-?-?-?-?-?-?-?-?-?-?-?- JV- no lof, vagi nal bleeding or dec fm. gct today. wants to think about tdap. 03/07/25 -?-?-?-?-?-?-?-?-?-?-?-?- 30w 1d 186 lb (+10 lb) 102/64 Negative -?-?-?-?-?-?-?-?-?-?-?-?- Negative 138 31 -?-?-?-?-?-?-?-?-?-?-?-?- JV- larc signed. patient is thinking paragard but at post visit. no lof, vaginal bleeding, or dec fm. 03/21/25 -?-?-?-?-?-?-?-?-?-?-?-?- 32w 1d 186 lb 4 oz (+10 lb 4 oz) 116/78 Negative -?-?-?-?-?-?-?-?-?-?-?-?- Negative 130 33 -?-?-?-?-?-?-?-?-?-?-?-?- KW- no vb/lof/ct x. good fm KW- no vb/lof/ctx. good fm. no concerns today 04/04/25 -?-?-?-?-?-?-?-?-?--?-?-?- 34w 1d 187 lb (+11 lb) 97/66 Negative -?-?-?-?-?-?-?-?-?-?-?-?- Negative 135 34 Cephalic -?-?-?-?-?-?-?-?-?-?-?-?- SM- no vb lof go od fm no reuglar ctx ACOG First Trimester First Trimester: Discussed Second Trimester Second Trimester: Signs and Symptoms of Labor, Selecting a care provider, Reproductive Life Planning & Contreception, Care Planning, Depression/Anxiety and Intimate Partner Violence; Discussed Tobacco Cessation Third Trimester Third Trimester: Pain Management Plans, Labor support person(s), Immediate Larc, Signs and Symptoms of Preeclampsia, Infant Feeding No , Education and Family Medical Leave or Disability Forms Results POC Urinalysis 2 Dip (Clinic) Office Urine Glucose Negative Last Edit by Marielos Gil on 04/04/25 10:14 Office Urine Protein Negative Last Edit by Marielos Gil on 04/04/25 10:14 Coding Level of Care Code OB Routine Diagnoses Choroid plexus cyst G93.0 Group B Streptococcus urinary tract infection affecting in second trimester O23.42; B95.1 Trimester: second trimester Rh negative status during in second trimester O26.892; Z67.91 Trimester: second trimester Obesity affecting in second trimester, unspecified obesity type O99.212 Obesity type affecting : unspecified obesity Trimester: second trimester Supervision of high risk in second trimester O09.92 Trimester: second trimester Multigravida of advanced maternal age in second trimester O09.522 Trimester: second trimester 34 weeks gestation of Z3A.34 Weeks of gestation: 34 weeks History of infertility Z87.42 Assessment and Plan Assessment and Plan (1) Choroid plexus cyst: Status: Acute Comment: follow up scan at 28 weeks declines NIPT (2) GBS (group B streptococcus) UTI complicating : Status: Acute Qualifiers: Trimester: second trimester Qualified Code(s): O23.42 - Unspecified infection of urinary tract in , second trimester; B95.1 - Streptococcus, group B, as the cause of diseases classified elsewhere Comment: not high enough to treat. treat in labor (3) Rh negative status during : Status: Acute Qualifiers: Trimester: second trimester Qualified Code(s): O26.892 - Other specified related conditions, second trimester; Z67.91 - Unspecified blood type, Rh negative Comment: A-: 11/29/24: spotting, rhogam given. Rhogam given on 02/21/25 (4) Obesity affecting : Status: Acute Qualifiers: Obesity type affecting : unspecified obesity Trimester: second trimester Qualified Code(s): O99.212 - Obesity complicating , second trimester Comment: BMI 30 - HgA1C ordered with NOB labs (5) Supervision of high-risk : Status: Acute Qualifiers: Trimester: second trimester Qualified Code(s): O09.92 - Supervision of high risk , unspecified, second trimester Comment: PRR, , JUAN 05/15/25, boy PC: Tisha, : [employer] (6) AMA (advanced maternal age) multigravida 35+: Status: Acute Qualifiers: Trimester: second trimester Qualified Code(s): O09.522 - Supervision of elderly multigravida, second trimester Comment: growth US 36 weeks deliveyr by 40 (7) : Status: Acute Qualifiers: Weeks of gestation: 34 weeks Qualified Code(s): Z3A.34 - 34 weeks gestation of Comment: Discussed genetic/carrier testing - undecided, nl anatomy(choroid plexus cyst noted. Offered NIPT again) (8) History of infertility: Status: Acute Comment: Unknown factor. Failed 6 IUI per RGI. Daughter/spontaneous . THIS also spontaneous/surprise Orders: Orders POC Urinalysis 2 Dip (Clinic) Today 04/04/25 1027 <Electronically signed by Ayaka khan MD> Date _ Ayaka Tejedaignkimberly Signature: Date (if applicable) CC: ~ [facility] Work Phone: Progress note Author Meryl Smith [facility] Note Date/Time April 26, 2025 11:11 am [facility] [address] [place] [address], [address] [place] [address] OFFICE VISIT Date of Service: 04/26/25 MR#: [id number] Acct: [id number] Name: KIRK CARVALHO Rep #: [id number] : 1990 Provider: ASHUTOSH Smith Age/Sex: 34/F [place] [facility] [place]: Signed Intake Vital Signs 11/29/24 09:58 04/18/25 10:03 04/26/25 10:28 04/26/25 10:28 Height 5 ft 5 ft 5 ft 5 ft Weight: 193 lb 2 oz BMI 37.7 BP 94/62 Intake Visit Reasons: 37 wk ob 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 Is patient in pain?: No Allergies Penicillins Allergy (Verified 04/26/25 10:27) Vomiting Medications ?Medication ?Instructions ?Recorded ?Confirmed ?Type drwqqdca-psz-Ag-FA 1 mg 1 tab PO DAILY pregna ncy 09/16/22 04/26/25 History tablet cholecalciferol (vitamin D3) 25 25 mcg PO QDAY 4 04/26/25 History mcg (1,000 unit) capsule Last Menstrual Period: 08/08/24 Zika: Zika virus screening: Negative : No PFSH PFSH Family History Mother Endometriosis Lupus Social History adopted: No household members: spouse and children number of children: 1 current occupation: [employer] current occupational exposures/hazards: No pets and animals: Yes history of recent travel: No sexually active: Yes Smoking Status: Never smoker alcohol intake: never substance use type: does not use well-balanced diet: daily or most days caffeine: Yes Type: carbonated beverages Number of servings: 1 eating out: rarely or never during the past year weight has: increased > 10 lbs what type of physical activity do you participate in: walking frequency: 1-2 times per week duration: < 15 minutes/day seatbelt use: always do you feel safe at home: Yes 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 Date Name GA/Weeks Outcome Route Bth Weight Infant Gen Labor Lgth Anesthesia Del Locatn Provider FOB 09/16/22 Tisha 41 live - full term 7lbs Female non e WC Rohan Doshi HPI 37 wk ob Details: KIRK CARVALHO is a 34 year old who presents for routine OB visit. OB Visit JUAN Calculator Estimated Delivery Date Method Current WG Current Estimate 05/15/25 LMP (Uncertain) 37w 2d Other Estimates 05/13/25 Ultrasound #1 37w 4d Expected Delivery Route/Plan Labor Preferences- CB/BF classes: [] labor support person: [] labor intervention preferences: [] pain management options preferred: [] cut cord/dad catch: [] :desires, but had a hard time with first. PP control planned: [] discussed possible routes of delivery and associated risks: [] special requests: [] Specific Issue/Plans Covid status: [] Flu vaccine: given Tdap vaccine: [] Rhogam: given 11/29/24(spotting) LARC form signed: [] Problem list reviewed and updated with the most current plan of care details and appropriate orders placed. Relevant counseling for the gestational age provided. Continue routine care and follow up unless otherwise noted in visit notes/problem list details Initial Weight: 176 lb Date -?-?-?-?-?-?-?-?-?-?-?-?- EGA Weight BP Urine Prot -?-?-?-?-?-?-?-?-?-?-?-?- Glucose FHR FuHt Pres Dilation -?-?-?-?-?-?-?-?-?-?-?-?- Effaced St Visit Note 10/03/24 -?-?-?-?-?-?-?-?-?-?-?-?- 8w 0d 176 lb 8 oz (+8 oz) 133/78 -?-?-?-?-?-?-?-?-?-?-?-?- 180 -?-?-?-?-?-?-?-?-?-?-?-?- KW- CRL cons wit h dates. Declines NIPT. 10/31/24 -?-?-?-?-?-?-?-?-?-?-?-?- 12w 0d 178 lb 6 oz (+2 lb 6 oz) 112/76 Negative -?-?-?-?-?-?-?-?-?-?-?-?- Negative 165 -?-?-?-?-?-?-?-?-?-?-?-?- JV- no lof, vagi nal bleeding, or cramping. anatomy scan ordered 11/29/24 -?-?-?-?-?-?-?-?-?-?-?-?- 16w 1d 177 lb 8 oz (+1 lb 8 oz) 124/78 Negative -?-?-?-?-?-?-?-?-?-?-?-?- Negative 148 -?-?-?-?-?-?-?-?-?-?-?-?- MH-Had episode l ight spotting just over a week ago. T&S plus rhogam today. Feeling flutters. Flu vaccine given. 12/27/24 -?-?-?-?-?-?-?--?-?-?-?-?- 20w 1d 178 lb 8 oz (+2 lb 8 oz) 103/64 Negative -?-?-?-?-?-?-?-?-?-?-?-?- Negative 150 -?-?-?-?-?-?-?-?-?-?-?-?- JV- no lof, vagi nal bleeding, or cramping. 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 01/24/25 -?-?-?-?-?-?-?-?-?-?-?-?- 24w 1d 182 lb 4 oz (+6 lb 4 oz) 114/72 Negative -?-?-?-?-?-?-?-?-?-?-?-?- Negative 150 24 -?-?-?-?-?-?-?-?-?-?-?-?- SM- no vb lof go od fm no regular ctx 02/21/25 -?-?-?-?-?-?-?-?-?-?-?-?- 28w 1d 183 lb 2 oz (+7 lb 2 oz) 112/70 Negative -?-?-?-?-?-?-?-?-?-?-?-?- Negative 145 28 -?-?-?-?-?-?-?-?-?-?-?-?- JV- no lof, vagi nal bleeding or dec fm. gct today. wants to think about tdap. 03/07/25 -?-?-?-?-?-?-?-?-?-?-?-?- 30w 1d 186 lb (+10 lb) 102/64 Negative -?-?-?-?-?-?-?-?-?-?-?-?- Negative 138 31 -?-?-?-?-?-?-?-?-?-?-?-?- JV- larc signed. patient is thinking paragard but at post visit. no lof, vaginal bleeding, or dec fm. 03/21/25 -?-?-?-?-?-?-?-?-?-?-?-?- 32w 1d 186 lb 4 oz (+10 lb 4 oz) 116/78 Negative -?-?-?-?-?-?-?-?-?-?-?-?- Negative 130 33 -?-?-?-?-?-?-?-?-?-?-?-?- KW- no vb/lof/ct x. good fm KW- no vb/lof/ctx. good fm. no concerns today 04/04/25 -?-?-?-?-?-?-?-?-?-?-?-?- 34w 1d 187 lb (+11 lb) 97/66 Negative -?-?-?-?-?-?-?-?-?-?-?-?- Negative 135 34 Cephalic -?-?-?-?-?-?-?-?-?-?-?-?- SM- no vb lof go od fm no reuglar ctx 04/18/25 -?-?-?-?-?-?-?-?-?-?-?-?- 36w 1d 191 lb 4 oz (+15 lb 4 oz) 125/74 Negative -?-?-?-?-?-?-?-?-?-?-?-?- Negative 130 36 Cephalic 0 -?-?-?-?-?-?-?-?-?-?-?-?- KW- no vb/lof/ct x. good fm. had one episode of distorted vision after large position change-pre e labs today-likely due to position. plan for 39 week IOL- had 5hour labor with first baby. GBS +. Bedside US to confirm cephalic. 04/26/25 -?-?-?-?-?-?-?-?-?-?-?-?- 37w 2d 193 lb 2 oz (+17 lb 2 oz) 94/62 Negative -?-?-?-?-?-?-?-?-?-?-?-?- Negative 135 37 0 -?-?-?-?-?-?-?-?-?-?-?-?- LC- no vb/ctx/lo f. good fm. discussed pp depression with first. reviewed medications/support. would like a 2 week pp visit for medication management if needed. ACOG First Trimester First Trimester: Discussed Second Trimester Second Trimester: Signs and Symptoms of Labor, Selecting a care provider, Reproductive Life Planning & Contreception, Care Planning, Depression/Anxiety and Intimate Partner Violence; Discussed Tobacco Cessation Third Trimester Third Trimester: Pain Management Plans, Labor support person(s), Immediate Larc, Signs and Symptoms of Preeclampsia, Feeding No , [place] Education and Family Medical Leave or Disability Forms ROS Const Reports system reviewed and no additional complaints, except as documented GI Denies nausea and Denies vomiting Denies urinary hesitancy and Denies urinary urgency Exam Const Orientation: alert, awake and oriented x3 Resp Effort & Inspection: normal respiratory effort, able to speak in complete sentences and symmetric chest movement GI Palpation: soft (gravid) OB/External & Speculum: other (fundus appriopriate for GA) Results POC Urinalysis 2 Dip (Clinic) Office Urine Glucose Negative Last Edit by Celeste Narayanan on 04/26/25 10: 35 Office Urine Protein Negative Last Edit by Celeste Narayanan on 04/26/25 10: 35 Coding Level of Care Code OB Routine Diagnoses Choroid plexus cyst G93.0 Group B Streptococcus urinary tract infection affecting in second trimester O23.42; B95.1 Trimester: second trimester Rh negative status during in second trimester O26.892; Z67.91 Trimester: second trimester Obesity affecting in second trimester, unspecified obesity type O99.212 Obesity type affecting : unspecified obesity Trimester: second trimester Multigravida of advanced maternal age in second trimester O09.522 Trimester: second trimester Supervision of high risk in second trimester O09.92 Trimester: second trimester 37 weeks gestation of Z3A.37 Weeks of gestation: 37 weeks History of infertility Z87.42 Assessment and Plan Assessment and Plan (1) Choroid plexus cyst: Status: Acute Comment: follow up scan at 28 weeks declines NIPT (2) GBS (group B streptococcus) UTI complicating : Status: Acute Qualifiers: Trimester: second trimester Qualified Code(s): O23.42 - Unspecified infection of urinary tract in , second trimester; B95.1 - Streptococcus, group B, as the cause of diseases classified elsewhere Comment: not high enough to treat. treat in labor (3) Rh negative status during : Status: Acute Qualifiers: Trimester: second trimester Qualified Code(s): O26.892 - Other specified related conditions, second trimester; Z67.91 - Unspecified blood type, Rh negative Comment: A-: 11/29/24: spotting, rhogam given. Rhogam given on 02/21/25 (4) Obesity affecting : Status: Acute Qualifiers: Obesity type affecting : unspecified obesity Trimester: second trimester Qualified Code(s): O99.212 - Obesity complicating , second trimester Comment: BMI 30 - HgA1C ordered with NOB labs (5) AMA (advanced maternal age) multigravida 35+: Status: Acute Qualifiers: Trimester: second trimester Qualified Code(s): O09.522 - Supervision of elderly multigravida, second trimester Comment: growth US 36 weeks deliveyr by 40 (6) Supervision of high-risk : Status: Acute Qualifiers: Trimester: second trimester Qualified Code(s): O09.92 - Supervision of high risk , unspecified, second trimester Comment: PRR, , JUAN 05/15/25, boy PC: Tisha, : [place] (7) : Status: Acute Qualifiers: Weeks of gestation: 37 weeks Qualified Code(s): Z3A.37 - 37 weeks gestation of Comment: Discussed genetic/carrier testing - undecided, nl anatomy(choroid plexus cyst noted. Offered NIPT again) (8) History of infertility: Status: Acute Comment: Unknown factor. Failed 6 IUI per RGI. Daughter/spontaneous . THIS also spontaneous/surprise Orders: Orders POC Urinalysis 2 Dip (Clinic) Today Plan Details Additional Comments: ACOG trimester education reviewed and updated. see problem list details for updated plan management information and see below for orders placed at this visit. GA appropriate handout given. 04/26/25 1112 <Electronically signed by Meryl jerez CNM> Date _ Meryl Smith CNM Cosigner Signature: Date (if applicable) CC: ~ [facility] Work Phone: Progress note Author Niya Alicea [facility] Note Date/Time May 02, 2025 10:0 5am [facility] [address], [address] [place] [address] OFFICE VISIT Date of Service: 05/02/25 MR#: [id number] Acct: [id number] Name: KIRK CARVALHO Rep #: [id number] : 1990 Provider: ASHUTOSH Alicea Age/Sex: 34/F Location[place] [facility] [place] Status: Signed Intake Vital Signs 11/29/24 09:58 04/26/25 10:28 05/02/25 09:51 Height 5 ft 5 ft 5 ft Weight: 194 lb 6 oz BMI 37.9 BP 122/75 H Intake Visit Reasons: 38 wk ob 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 Is patient in pain?: No Allergies Penicillins Allergy (Verified 05/02/25 09:53) Vomiting Medications ?Medication ?Instructions ?Recorded ?Confirmed ?Type vvpywuap-lzx-Tu-FA 1 mg 1 tab PO DAILY pregna ncy 09/16/22 05/02/25 History tablet cholecalciferol (vitamin D3) 25 25 mcg PO QDAY 4 05/02/25 History mcg (1,000 unit) capsule Last Menstrual Period: 08/08/24 Zika: Zika virus screening: Negative : No PFSH PFSH Family History Mother Endometriosis Lupus Social History adopted: No household members: spouse and children number of children: 1 current occupation: [employer] current occupational exposures/hazards: No pets and animals: Yes history of recent travel: No sexually active: Yes Smoking Status: Never smoker alcohol intake: never substance use type: does not use well-balanced diet: daily or most days caffeine: Yes Type: carbonated beverages Number of servings: 1 eating out: rarely or never during the past year weight has: increased > 10 lbs what type of physical activity do you participate in: walking frequency: 1-2 times per week duration: < 15 minutes/day seatbelt use: always do you feel safe at home: Yes 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 Date Name GA/Weeks Outcome Route Bth Weight Gen Labor Lgth Anesthesia Del Locatn Provider FOB 09/16/22 Tisha 41 live - full term 7lbs Female non e [facility] Rohan Mcdonald [place] HPI 38 wk ob Details: KIRK CARVALHO is a 34 year old who presents for routine OB visit. OB Visit JUAN Calculator Estimated Delivery Date Method Current WG Current Estimate 05/15/25 LMP (Uncertain) 38w 1d Other Estimates 05/13/25 Ultrasound #1 38w 3d Expected Delivery Route/Plan Labor Preferences- CB/BF classes: [] labor support person: [] labor intervention preferences: [] pain management options preferred: [] cut cord/dad catch: [] :desires, but had a hard time with first. PP control planned: [] discussed possible routes of delivery and associated risks: [] special requests: [] Specific Issue/Plans Covid status: [] Flu vaccine: given Tdap vaccine: [] Rhogam: given 11/29/24(spotting) LARC form signed: [] Problem list reviewed and updated with the most current plan of care details and appropriate orders placed. Relevant counseling for the gestational age provided. Continue routine care and follow up unless otherwise noted in visit notes/problem list details Initial Weight: 176 lb Date -?-?-?-?-?-?-?-?-?-?-?-?- EGA Weight BP Urine Prot -?-?-?-?-?-?-?-?-?-?-?-?- Glucose FHR FuHt Pres Dilation -?-?-?-?-?-?-?-?-?-?-?-?- Effaced St Visit Note 10/03/24 -?-?-?-?-?-?-?-?-?-?-?-?- 8w 0d 176 lb 8 oz (+8 oz) 133/78 -?-?-?-?-?-?-?-?-?-?-?-?- 180 -?-?-?-?-?-?-?-?-?-?-?-?- KW- CRL cons wit h dates. Declines NIPT. 10/31/24 -?-?-?-?-?-?-?-?-?-?-?-?- 12w 0d 178 lb 6 oz (+2 lb 6 oz) 112/76 Negative -?-?-?-?--?-?-?-?-?-?-?-?- Negative 165 -?-?-?-?-?-?-?-?-?-?-?-?- JV- no lof, vagi nal bleeding, or cramping. anatomy scan ordered 11/29/24 -?-?-?-?-?-?-?-?-?-?-?-?- 16w 1d 177 lb 8 oz (+1 lb 8 oz) 124/78 Negative -?-?-?-?-?-?-?-?-?-?-?-?- Negative 148 -?-?-?-?-?-?-?-?-?-?-?-?- MH-Had episode l ight spotting just over a week ago. T&S plus rhogam today. Feeling flutters. Flu vaccine given. 12/27/24 -?-?-?-?-?-?-?-?-?-?-?-?- 20w 1d 178 lb 8 oz (+2 lb 8 oz) 103/64 Negative -?-?-?-?-?-?-?-?-?-?-?-?- Negative 150 -?-?-?-?-?-?-?-?-?-?-?-?- JV- no lof, vagi nal bleeding, or cramping. 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 01/24/25 -?-?-?-?-?-?-?-?-?-?-?-?- 24w 1d 182 lb 4 oz (+6 lb 4 oz) 114/72 Negative -?-?-?-?-?-?-?-?-?-?-?-?- Negative 150 24 -?-?-?-?-?-?-?-?-?-?-?-?- SM- no vb lof go od fm no regular ctx 02/21/25 -?-?-?-?-?-?-?-?-?-?-?-?- 28w 1d 183 lb 2 oz (+7 lb 2 oz) 112/70 Negative -?-?-?-?-?-?-?-?-?-?-?-?- Negative 145 28 -?-?-?-?-?-?-?-?-?-?-?-?- JV- no lof, vagi nal bleeding or dec fm. gct today. wants to think about tdap. 03/07/25 -?-?-?-?-?-?-?-?-?-?-?-?- 30w 1d 186 lb (+10 lb) 102/64 Negative -?-?-?-?-?-?-?-?-?-?-?-?- Negative 138 31 -?-?-?-?-?-?-?-?-?-?-?-?- JV- larc signed. patient is thinking paragard but at post visit. no lof, vaginal bleeding, or dec fm. 03/21/25 -?-?-?-?-?-?-?-?-?-?-?-?- 32w 1d 186 lb 4 oz (+10 lb 4 oz) 116/78 Negative -?-?-?-?-?-?-?-?-?-?-?-?- Negative 130 33 -?-?-?-?-?-?-?-?-?-?-?-?- KW- no vb/lof/ct x. good fm KW- no vb/lof/ctx. good fm. no concerns today 04/04/25 -?-?-?-?-?-?-?-?-?-?--?-?- 34w 1d 187 lb (+11 lb) 97/66 Negative -?-?-?-?-?-?-?-?-?-?-?-?- Negative 135 34 Cephalic -?-?-?-?-?-?-?-?-?-?-?-?- SM- no vb lof go od fm no reuglar ctx 04/18/25 -?-?-?-?-?-?-?-?-?-?-?-?- 36w 1d 191 lb 4 oz (+15 lb 4 oz) 125/74 Negative -?-?-?-?-?-?-?-?-?-?-?-?- Negative 130 36 Cephalic 0 -?-?-?-?-?-?-?-?-?-?-?-?- KW- no vb/lof/ct x. good fm. had one episode of distorted vision after large position change-pre e labs today-likely due to position. plan for 39 week IOL- had 5hour labor with first baby. GBS +. Bedside US to confirm cephalic. 04/26/25 -?-?-?-?-?-?-?-?-?-?-?-?- 37w 2d 193 lb 2 oz (+17 lb 2 oz) 94/62 Negative -?-?-?-?-?-?-?-?-?-?-?-?- Negative 135 37 0 -?-?-?-?-?-?-?-?-?-?-?-?- LC- no vb/ctx/lo f. good fm. discussed pp depression with first. reviewed medications/support. would like a 2 week pp visit for medication management if needed. 05/02/25 -?-?-?-?-?-?-?-?-?-?-?-?- 38w 1d 194 lb 6 oz (+18 lb 6 oz) 122/75 Negative -?-?-?-?-?-?-?-?-?-?-?-?- Negative 130 38 0 -?-?-?-?-?-?-?-?-?-?-?-?- KW- no vb/lof/ct x. good fm IOL at 40 weeks. ACOG First Trimester First Trimester: Discussed Second Trimester Second Trimester: Signs and Symptoms of Labor, Selecting a care provider, Reproductive Life Planning & Contreception, Care Planning, Depression/Anxiety and Intimate Partner Violence; Discussed Tobacco Cessation Third Trimester Third Trimester: Pain Management Plans, Labor support person(s), Immediate Larc, Signs and Symptoms of Preeclampsia, Infant Feeding No , Education and Family Medical Leave or Disability Forms ROS Const Reports system reviewed and no additional complaints, except as documented Eyes Reports system reviewed and no additional complaints, except as documented ENT Reports system reviewed and no additional complaints, except as documented Card Reports system reviewed and no additional complaints, except as documented Resp Reports system reviewed and no additional complaints, except as documented GI Reports system reviewed and no additional complaints, except as documented, Denies nausea and Denies vomiting Reports system reviewed and no additional complaints, except as documented Musc Reports system reviewed and no additional complaints, except as documented Skin/Breast Reports system reviewed and no additional complaints, except as documented Neuro Yes system reviewed and no additional complaints, except as documented Psych Reports system reviewed and no additional complaints, except as documented Endo Reports system reviewed and no additional complaints, except as documented Oc/Lymph Reports system reviewed and no additional complaints, except as documented Aller/Immun Reports system reviewed and no additional complaints, except as documented Exam Const General: cooperative, healthy appearing and no acute distress Orientation: alert, awake and oriented x3 Neck Neck: normal visual inspection and full ROM Resp Effort & Inspection: normal respiratory effort, able to speak in complete sentences and symmetric chest movement GI Inspection: normal to inspection Palpation: soft and other Other: gravid Skin General: no rashes or lesions noted Neuro General: patient alert, patient awake and patient oriented x3 Cognition: normal cognition Speech: speech normal Gait: normal gait Motor: muscle tone normal throughout Extrem General: normal to inspection and full ROM Psych Appearance: grossly normal Mental Status: mental status grossly normal Mood: congruent mood Affect: normal affect Speech and Movement: speech and movement normal Attitude: cooperative Thought Process: normal Thought Content: normal Judgment: judgment good Results POC Urinalysis 2 Dip (Clinic) Office Urine Glucose Negative Last Edit by Marielos Gil on 05/02/25 09:56 Office Urine Protein Negative Last Edit by Marielos Gil on 05/02/25 09:56 Coding Level of Care Code OB Routine Diagnoses Choroid plexus cyst G93.0 Group B Streptococcus urinary tract infection affecting in second trimester O23.42; B95.1 Trimester: second trimester Rh negative status during in second trimester O26.892; Z67.91 Trimester: second trimester Obesity affecting in second trimester, unspecified obesity type O99.212 Obesity type affecting : unspecified obesity Trimester: second trimester Multigravida of advanced maternal age in second trimester O09.522 Trimester: second trimester Supervision of high risk in second trimester O09.92 Trimester: second trimester 38 weeks gestation of Z3A.38 Weeks of gestation: 38 weeks History of infertility Z87.42 Assessment and Plan Assessment and Plan (1) Choroid plexus cyst: Status: Acute Comment: follow up scan at 28 weeks declines NIPT (2) GBS (group B streptococcus) UTI complicating : Status: Acute Qualifiers: Trimester: second trimester Qualified Code(s): O23.42 - Unspecified infection of urinary tract in , second trimester; B95.1 - Streptococcus, group B, as the cause of diseases classified elsewhere Comment: not high enough to treat. treat in labor -Clindamycin (tolerates well) (3) Rh negative status during : Status: Acute Qualifiers: Trimester: second trimester Qualified Code(s): O26.892 - Other specified related conditions, second trimester; Z67.91 - Unspecified blood type, Rh negative Comment: A-: 11/29/24: spotting, rhogam given. Rhogam given on 02/21/25 (4) Obesity affecting : Status: Acute Qualifiers: Obesity type affecting : unspecified obesity Trimester: second trimester Qualified Code(s): O99.212 - Obesity complicating , second trimester Comment: BMI 30 - HgA1C ordered with NOB labs (5) AMA (advanced maternal age) multigravida 35+: Status: Acute Qualifiers: Trimester: second trimester Qualified Code(s): O09.522 - Supervision of elderly multigravida, second trimester Comment: growth US 36 weeks deliveyr by 40 (6) Supervision of high-risk : Status: Acute Qualifiers: Trimester: second trimester Qualified Code(s): O09.92 - Supervision of high risk , unspecified, second trimester Comment: PRR, , JUAN 05/15/25, boy PC: Tisha, : [place] (7) : Status: Acute Qualifiers: Weeks of gestation: 38 weeks Qualified Code(s): Z3A.38 - 38 weeks gestation of Comment: Discussed genetic/carrier testing - undecided, nl anatomy(choroid plexus cyst noted. Offered NIPT again) (8) History of infertility: Status: Acute Comment: Unknown factor. Failed 6 IUI per RGI. Daughter/spontaneous . THIS also spontaneous/surprise Orders: Orders POC Urinalysis 2 Dip (Clinic) Today Plan Details Additional Comments: ACOG trimester education reviewed and updated. see problem list details for updated plan management information and see below for orders placed at this visit. GA appropriate handout given. 05/02/25 1005 <Electronically signed by Niya hubbard CNM> Date _ Niya Alicea CNM Cosigner Signature: Date (if applicable) CC: ~ [facility] Work Phone: Progress note Author Aarti Davis [facility] Note Date/Time May 09, 2025 10:3 0am [facility] [address] [place] [address], [address] [place] [address] OFFICE VISIT Date of Service: 05/09/25 MR#: [id number] Acct: [id number] Name: KIRK CARVALHO Rep #: [id number] : 1990 Provider: Dr. Melinda Escalante DO Age/Sex: 34/F [place] [facility] [place]: Signed Intake Vital Signs 11/29/24 09:58 05/02/25 09:51 05/09/25 09:54 05/09/25 09:54 Height 5 ft 5 ft 5 ft 5 ft Weight: 195 lb 8 oz BMI 38.2 BP 105/74 Intake Visit Reasons: 39 wk ob 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 Is patient in pain?: No Allergies Penicillins Allergy (Verified 05/09/25 09:53) Vomiting Medications ?Medication ?Instructions ?Recorded ?Confirmed ?Type [id number] 1 mg 1 tab PO DAILY pregna ncy 09/16/22 05/09/25 History tablet cholecalciferol (vitamin D3) 25 25 mcg PO QDAY 4 05/09/25 History mcg (1,000 unit) capsule Last Menstrual Period: 08/08/24 Zika: Zika virus screening: Negative : No PFSH PFSH Family History Mother Endometriosis Lupus Social History adopted: No household members: spouse and children number of children: 1 current occupation: [employer] current occupational exposures/hazards: No pets and animals: Yes history of recent travel: No sexually active: Yes Smoking Status: Never smoker alcohol intake: never substance use type: does not use well-balanced diet: daily or most days caffeine: Yes Type: carbonated beverages Number of servings: 1 eating out: rarely or never during the past year weight has: increased > 10 lbs what type of physical activity do you participate in: walking frequency: 1-2 times per week duration: < 15 minutes/day seatbelt use: always do you feel safe at home: Yes 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 Date Name GA/Weeks Outcome Route Bth Weight Gen Labor Lgth Anesthesia Del Locatn Provider FOB 09/16/22 Tisha 41 live - full term 7lbs Female non e [facility] Rohan Mcdonald [place] HPI 39 wk ob Details: KIRK CARVALHO is a 34 year old who presents for routine OB visit. OB Visit JUAN Calculator Estimated Delivery Date Method Current WG Current Estimate 05/15/25 LMP (Uncertain) 39w 1d Other Estimates 05/13/25 Ultrasound #1 39w 3d Expected Delivery Route/Plan Labor Preferences- CB/BF classes: [] labor support person: [] labor intervention preferences: [] pain management options preferred: [] cut cord/dad catch: [] :desires, but had a hard time with first. PP control planned: [] discussed possible routes of delivery and associated risks: [] special requests: [] Specific Issue/Plans Covid status: [] Flu vaccine: given Tdap vaccine: [] Rhogam: given 11/29/24(spotting) LARC form signed: [] Problem list reviewed and updated with the most current plan of care details and appropriate orders placed. Relevant counseling for the gestational age provided. Continue routine care and follow up unless otherwise noted in visit notes/problem list details Initial Weight: 176 lb Date -?-?-?-?-?-?-?-?-?-?-?-?- EGA Weight BP Urine Prot -?-?-?-?-?-?-?-?-?-?-?-?- Glucose FHR FuHt Pres Dilation -?-?-?-?-?-?-?-?-?-?-?-?- Effaced St Visit Note 10/03/24 -?-?-?-?-?-?-?-?-?-?-?-?- 8w 0d 176 lb 8 oz (+8 oz) 133/78 -?-?-?-?-?-?-?-?-?-?-?-?- 180 -?-?-?-?-?-?-?-?-?-?-?-?- KW- CRL cons wit h dates. Declines NIPT. 10/31/24 -?-?-?-?-?-?-?-?-?-?-?-?- 12w 0d 178 lb 6 oz (+2 lb 6 oz) 112/76 Negative -?-?-?-?-?-?-?-?-?-?-?-?- Negative 165 -?-?-?-?-?-?-?-?-?-?-?-?- JV- no lof, vagi nal bleeding, or cramping. anatomy scan ordered 11/29/24 -?-?-?-?-?-?-?-?-?-?-?-?- 16w 1d 177 lb 8 oz (+1 lb 8 oz) 124/78 Negative -?-?-?-?-?-?-?-?-?-?-?-?- Negative 148 -?-?-?-?-?-?-?-?-?-?-?-?- MH-Had episode l ight spotting just over a week ago. T&S plus rhogam today. Feeling flutters. Flu vaccine given. 12/27/24 -?-?-?-?-?-?-?-?-?-?-?-?- 20w 1d 178 lb 8 oz (+2 lb 8 oz) 103/64 Negative -?-?-?-?-?-?-?-?-?-?-?-?- Negative 150 -?-?-?-?-?-?-?-?-?-?-?--?- JV- no lof, vagi nal bleeding, or cramping. 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 01/24/25 -?-?-?-?-?-?-?-?-?-?-?-?- 24w 1d 182 lb 4 oz (+6 lb 4 oz) 114/72 Negative -?-?-?-?-?-?-?-?-?-?-?-?- Negative 150 24 -?-?-?-?-?-?-?-?-?-?-?-?- SM- no vb lof go od fm no regular ctx 02/21/25 -?-?-?-?-?-?-?-?-?-?-?-?- 28w 1d 183 lb 2 oz (+7 lb 2 oz) 112/70 Negative -?-?-?-?-?-?-?-?-?-?-?-?- Negative 145 28 -?-?-?-?-?-?-?-?-?-?-?-?- JV- no lof, vagi nal bleeding or dec fm. gct today. wants to think about tdap. 03/07/25 -?-?-?-?-?-?-?-?-?-?-?-?- 30w 1d 186 lb (+10 lb) 102/64 Negative -?-?-?-?-?-?-?-?-?-?-?-?- Negative 138 31 -?-?-?-?-?-?-?-?-?-?-?-?- JV- larc signed. patient is thinking paragard but at post visit. no lof, vaginal bleeding, or dec fm. 03/21/25 -?-?-?-?-?-?-?-?-?-?-?-?- 32w 1d 186 lb 4 oz (+10 lb 4 oz) 116/78 Negative -?-?-?-?-?-?-?-?-?-?-?-?- Negative 130 33 -?-?-?-?-?-?-?-?-?-?-?-?- KW- no vb/lof/ct x. good fm KW- no vb/lof/ctx. good fm. no concerns today 04/04/25 -?-?-?-?-?-?-?-?-?-?-?-?- 34w 1d 187 lb (+11 lb) 97/66 Negative -?-?-?-?-?-?-?-?-?-?-?-?- Negative 135 34 Cephalic -?-?-?-?-?-?-?-?-?-?-?-?- SM- no vb lof go od fm no reuglar ctx 04/18/25 -?-?-?-?-?-?-?-?-?-?-?-?- 36w 1d 191 lb 4 oz (+15 lb 4 oz) 125/74 Negative -?-?-?-?-?-?-?-?-?-?-?-?- Negative 130 36 Cephalic 0 -?-?-?-?-?-?-?-?-?-?-?-?- KW- no vb/lof/ct x. good fm. had one episode of distorted vision after large position change-pre e labs today-likely due to position. plan for 39 week IOL- had 5hour labor with first baby. GBS +. Bedside US to confirm cephalic. 04/26/25 -?-?-?-?-?-?-?-?-?-?-?-?- 37w 2d 193 lb 2 oz (+17 lb 2 oz) 94/62 Negative -?-?-?-?-?-?-?-?-?-?-?-?- Negative 135 37 0 -?-?-?-?-?-?-?-?-?-?-?-?- LC- no vb/ctx/lo f. good fm. discussed pp depression with first. reviewed medications/support. would like a 2 week pp visit for medication management if needed. 05/02/25 -?-?-?-?-?-?-?-?-?-?-?-?- 38w 1d 194 lb 6 oz (+18 lb 6 oz) 122/75 Negative -?-?-?-?-?-?-?-?-?-?-?-?- Negative 130 38 0 -?-?-?-?-?-?-?-?-?-?-?-?- KW- no vb/lof/ct x. good fm IOL at 40 weeks. 05/09/25 -?-?-?-?-?-?-?-?-?-?-?-?- 39w 1d 195 lb 8 oz (+19 lb 8 oz) 105/74 Negative -?-?-?-?-?-?-?-?-?-?-?-?- Negative 145 38 Cephalic 0 -?-?-?-?-?-?-?-?-?-?-?-?- JV_ Cytotec IOL set up for tuesday. no lof, vaginal bleeding, or dec fm. ACOG First Trimester First Trimester: Discussed Second Trimester Second Trimester: Signs and Symptoms of Labor, Selecting a care provider, Reproductive Life Planning & Contreception, Care Planning, Depression/Anxiety and Intimate Partner Violence; Discussed Tobacco Cessation Third Trimester Third Trimester: Pain Management Plans, Labor support person(s), Immediate Larc, Signs and Symptoms of Preeclampsia, Infant Feeding No , [place] Education and Family Medical Leave or Disability Forms Results POC Urinalysis 2 Dip (Clinic) Office Urine Glucose Negative Last Edit by Celeste Narayanan on 05/09/25 10: 06 Office Urine Protein Negative Last Edit by Celeste Narayanan on 05/09/25 10: 06 Coding Level of Care Code OB Routine Diagnoses Choroid plexus cyst G93.0 Group B Streptococcus urinary tract infection affecting in second trimester O23.42; B95.1 Trimester: second trimester Rh negative status during in second trimester O26.892; Z67.91 Trimester: second trimester Obesity affecting in second trimester, unspecified obesity type O99.212 Obesity type affecting : unspecified obesity Trimester: second trimester Multigravida of advanced maternal age in second trimester O09.522 Trimester: second trimester Supervision of high risk in second trimester O09.92 Trimester: second trimester 39 weeks gestation of Z3A.39 Weeks of gestation: 39 weeks History of infertility Z87.42 Assessment and Plan Assessment and Plan (1) Choroid plexus cyst: Status: Acute Comment: follow up scan at 28 weeks declines NIPT (2) GBS (group B streptococcus) UTI complicating : Status: Acute Qualifiers: Trimester: second trimester Qualified Code(s): O23.42 - Unspecified infection of urinary tract in , second trimester; B95.1 - Streptococcus, group B, as the cause of diseases classified elsewhere Comment: not high enough to treat. treat in labor -Clindamycin (tolerates well) (3) Rh negative status during : Status: Acute Qualifiers: Trimester: second trimester Qualified Code(s): O26.892 - Other specified related conditions, second trimester; Z67.91 - Unspecified blood type, Rh negative Comment: A-: 11/29/24: spotting, rhogam given. Rhogam given on 02/21/25 (4) Obesity affecting : Status: Acute Qualifiers: Obesity type affecting : unspecified obesity Trimester: second trimester Qualified Code(s): O99.212 - Obesity complicating , second trimester Comment: BMI 30 - HgA1C ordered with NOB labs (5) AMA (advanced maternal age) multigravida 35+: Status: Acute Qualifiers: Trimester: second trimester Qualified Code(s): O09.522 - Supervision of elderly multigravida, second trimester Comment: growth US 36 weeks deliveyr by 40 (6) Supervision of high-risk : Status: Acute Qualifiers: Trimester: second trimester Qualified Code(s): O09.92 - Supervision of high risk , unspecified, second trimester Comment: PRR, , JUAN 05/15/25, boy PC: Tisha, : [place] (7) : Status: Acute Qualifiers: Weeks of gestation: 39 weeks Qualified Code(s): Z3A.39 - 39 weeks gestation of Comment: Discussed genetic/carrier testing - undecided, nl anatomy(choroid plexus cyst noted. Offered NIPT again) (8) History of infertility: Status: Acute Comment: Unknown factor. Failed 6 IUI per RGI. Daughter/spontaneous . THIS also spontaneous/surprise Orders: Orders POC Urinalysis 2 Dip (Clinic) Today 05/09/25 1030 <Electronically signed by Aarti Souza DO> Date _ Aarti Escalante DO Cosigner Signature: Date (if applicable) CC: ~ [facility] Work Phone: Reason for referral (narrative)No reason for referral information available[facility] Work Phone: Chief Complaint and Reason for Visit Chief Complaint VAGINAL DELIVERY Reason for Visit Vaginal delivery Chief Complaint Admit Date 12wk OB October 31, 2024 11:07am 16 WK OB November 29, 2024 9: 56am 20 wk ob December 27, 2024 9 :58am 24 wk ob January 24, 2025 9:53 am 28 wk ob/glucose February 21, 2025 2:40 pm Reason for Visit Admit Date AMA (advanced maternal age) multigravida 35+ October 31, 2024 11:07am GBS (group B streptococcus) UTI complica ting October 31, 2024 11:07am History of infertility October 31 11:07am Obesity affecting October 11:07am October 31, 2024 11:07am Rh negative status during Dece mber 2023 11:07am Supervision of high-risk Decem rajesh 2023 11:07am AMA (advanced maternal age) multigravida 35+ November 29, 2024 9:56am GBS (group B streptococcus) UTI complica ting November 29, 2024 9:56am History of infertility November 29, 2024 9:56am Obesity affecting November 29, 2024 9:56am November 29, 2024 9: 56am Rh negative status during Silverio cleopatra 2024 9:56am Supervision of high-risk Janua ry 2024 9:56am AMA (advanced maternal age) multigravida 35+ December 27, 2024 9:58am GBS (group B streptococcus) UTI complica ting December 27, 2024 9:58am History of infertility December 27 9:58am Obesity affecting December 9:58am December 27, 2024 9 :58am Rh negative status during Febr uary 2024 9:58am Supervision of high-risk Febru [email or web address] 9:58am Choroid plexus cyst of fetus December 9:58am AMA (advanced maternal age) multigravida 35+ January 24, 2025 9:53am Choroid plexus cyst January 24, 2025 9:53 am GBS (group B streptococcus) UTI complica ting January 24, 2025 9:53am History of infertility January 24, 2025 9 :53am Obesity affecting January 24, 025 9:53am January 24, 2025 9:53 am Rh negative status during Drew 2024 9:53am Supervision of high-risk January 24, 2025 9:53am AMA (advanced maternal age) multigravida 35+ February 21, 2025 2:40pm Choroid plexus cyst February 21, 2025 2:40 pm GBS (group B streptococcus) UTI complica ting February 21, 2025 2:40pm History of infertility February 21, 2025 2 :40pm Obesity affecting February 21, 2 025 2:40pm February 21, 2025 2:40 pm Rh negative status during Apri l 2024 2:40pm Supervision of high-risk February 21, 2025 2:40pm Chief Complaint Admit Date 16 WK OB November 29, 2024 9: 56am 20 wk ob December 27, 2024 9 :58am 24 wk ob January 24, 2025 9:53 am 28 wk ob/glucose February 21, 2025 2:40 pm 30 wk ob March 07, 2025 9:4 9am 32 wk ob March 21, 2025 9:52am LOWER March 29, 2025 11:57a m Reason for Visit Admit Date AMA (advanced maternal age) multigravida 35+ November 29, 2024 9:56am GBS (group B streptococcus) UTI complica ting November 29, 2024 9:56am History of infertility November 29, 2024 9:56am Obesity affecting November 29, 2024 9:56am November 29, 2024 9: 56am Rh negative status during 2024 9:56am Supervision of high-risk Janua ry 2024 9:56am AMA (advanced maternal age) multigravida 35+ December 27, 2024 9:58am GBS (group B streptococcus) UTI complica ting December 27, 2024 9:58am History of infertility December 27 9:58am Obesity affecting December 9:58am December 27, 2024 9 :58am Rh negative status during 2024 9:58am Supervision of high-risk 2024 9:58am Choroid plexus cyst of fetus December 9:58am AMA (advanced maternal age) multigravida 35+ January 24, 2025 9:53am Choroid plexus cyst January 24, 2025 9:53 am GBS (group B streptococcus) UTI complica ting January 24, 2025 9:53am History of infertility January 24, 2025 9 :53am Obesity affecting January 24, 9:53am January 24, 2025 9:53 am Rh negative status during [facility] 2024 9:53am Supervision of high-risk January 24, 2025 9:53am AMA (advanced maternal age) multigravida 35+ February 21, 2025 2:40pm Choroid plexus cyst February 21, 2025 2:40 pm GBS (group B streptococcus) UTI complica ting February 21, 2025 2:40pm History of infertility February 21, 2025 2 :40pm Obesity affecting February 21, 2 025 2:40pm February 21, 2025 2:40 pm Rh negative status during Apri l 2024 2:40pm Supervision of high-risk February 21, 2025 2:40pm AMA (advanced maternal age) multigravida 35+ March 07, 2025 9:49am Choroid plexus cyst March 07, 2025 9:4 9am GBS (group B streptococcus) UTI complica ting March 07, 2025 9:49am History of infertility March 07, 2025 9:49am Obesity affecting March 07, 2025 9:49am March 07, 2025 9:4 9am Rh negative status during Apri l 2024 9:49am Supervision of high-risk March 07, 2025 9:49am AMA (advanced maternal age) multigravida 35+ March 21, 2025 9:52am Choroid plexus cyst March 21, 2025 9:52am GBS (group B streptococcus) UTI complica ting March 21, 2025 9:52am History of infertility March 21, 2025 9:5 2am Obesity affecting March 21 9:52am March 21, 2025 9:52am Rh negative status during March 21, 2025 9:52am Supervision of high-risk March [id number] 9:52am Chief Complaint Admit Date 20 wk ob December 27, 2024 9 :58am 24 wk ob January 24, 2025 9:53 am 28 wk ob/glucose February 21, 2025 2:40 pm 30 wk ob March 07, 2025 9:4 9am 32 wk ob March 21, 2025 9:52am LOWER March 29, 2025 11:57a m 34 wk ob April 04, 2025 10:04 am Reason for Visit Admit Date AMA (advanced maternal age) multigravida 35+ December 27, 2024 9:58am GBS (group B streptococcus) UTI complica ting December 27, 2024 9:58am History of infertility December 27 9:58am Obesity affecting December 9:58am December 27, 2024 9 :58am Rh negative status during Febr [email or web address] 9:58am Supervision of high-risk Febru [email or web address] 9:58am Choroid plexus cyst of fetus December 9:58am AMA (advanced maternal age) multigravida 35+ January 24, 2025 9:53am Choroid plexus cyst January 24, 2025 9:53 am GBS (group B streptococcus) UTI complica ting January 24, 2025 9:53am History of infertility January 24, 2025 9 :53am Obesity affecting January 24, 025 9:53am January 24, 2025 9:53 am Rh negative status during Drew h 2024 9:53am Supervision of high-risk January 24, 2025 9:53am AMA (advanced maternal age) multigravida 35+ February 21, 2025 2:40pm Choroid plexus cyst February 21, 2025 2:40 pm GBS (group B streptococcus) UTI complica ting February 21, 2025 2:40pm History of infertility February 21, 2025 2 :40pm Obesity affecting February 21, 025 2:40pm February 21, 2025 2:40 pm Rh negative status during Apri 2024 2:40pm Supervision of high-risk February 21, 2025 2:40pm AMA (advanced maternal age) multigravida 35+ March 07, 2025 9:49am Choroid plexus cyst March 07, 2025 9:4 9am GBS (group B streptococcus) UTI complica ting March 07, 2025 9:49am History of infertility March 07, 2025 9:49am Obesity affecting March 07, 2025 9:49am March 07, 2025 9:4 9am Rh negative status during Apri l 2024 9:49am Supervision of high-risk March 07, 2025 9:49am AMA (advanced maternal age) multigravida 35+ March 21, 2025 9:52am Choroid plexus cyst March 21, 2025 9:52am GBS (group B streptococcus) UTI complica ting March 21, 2025 9:52am History of infertility March 21, 2025 9:5 2am Obesity affecting March 21 9:52am March 21, 2025 9:52am Rh negative status during March 21, 2025 9:52am Supervision of high-risk March [id number] 9:52am AMA (advanced maternal age) multigravida 35+ April 04, 2025 10:04am Choroid plexus cyst April 04, 2025 10:04 am GBS (group B streptococcus) UTI complica ting April 04, 2025 10:04am History of infertility April 04, 2025 10 :04am Obesity affecting April 04 10:04am April 04, 2025 10:04 am Rh negative status during April 04, 2025 10:04am Supervision of high-risk March [id number] 10:04am Chief Complaint Admit Date 20 wk ob December 27, 2024 9 :58am 24 wk ob January 24, 2025 9:53 am 28 wk ob/glucose February 21, 2025 2:40 pm 30 wk ob March 07, 2025 9:4 9am 32 wk ob March 21, 2025 9:52am LOWER March 29, 2025 11:57a m 34 wk ob April 04, 2025 10:04 am 36 WEEK, GROWTH April 17, 2025 3:1 8pm 36 wk ob April 18, 2025 9:56a m Reason for Visit Admit Date AMA (advanced maternal age) multigravida 35+ December 27, 2024 9:58am GBS (group B streptococcus) UTI complica ting December 27, 2024 9:58am History of infertility December 27 9:58am Obesity affecting December 9:58am December 27, 2024 9 :58am Rh negative status during Febr 2024 9:58am Supervision of high-risk Febru [email or web address] 9:58am Choroid plexus cyst of fetus December 9:58am AMA (advanced maternal age) multigravida 35+ January 24, 2025 9:53am Choroid plexus cyst January 24, 2025 9:53 am GBS (group B streptococcus) UTI complica ting January 24, 2025 9:53am History of infertility January 24, 2025 9 :53am Obesity affecting January 24, 025 9:53am January 24, 2025 9:53 am Rh negative status during Drew 2024 9:53am Supervision of high-risk January 24, 2025 9:53am AMA (advanced maternal age) multigravida 35+ February 21, 2025 2:40pm Choroid plexus cyst February 21, 2025 2:40 pm GBS (group B streptococcus) UTI complica ting February 21, 2025 2:40pm History of infertility February 21, 2025 2 :40pm Obesity affecting February 21, 025 2:40pm February 21, 2025 2:40 pm Rh negative status during Apri l 2024 2:40pm Supervision of high-risk February 21, 2025 2:40pm AMA (advanced maternal age) multigravida 35+ March 07, 2025 9:49am Choroid plexus cyst March 07, 2025 9:4 9am GBS (group B streptococcus) UTI complica ting March 07, 2025 9:49am History of infertility March 07, 2025 9:49am Obesity affecting March 07, 2025 9:49am March 07, 2025 9:4 9am Rh negative status during Apri l 2024 9:49am Supervision of high-risk March 07, 2025 9:49am AMA (advanced maternal age) multigravida 35+ March 21, 2025 9:52am Choroid plexus cyst March 21, 2025 9:52am GBS (group B streptococcus) UTI complica ting March 21, 2025 9:52am History of infertility March 21, 2025 9:5 2am Obesity affecting March 21 9:52am March 21, 2025 9:52am Rh negative status during March 21, 2025 9:52am Supervision of high-risk March 212024 9:52am AMA (advanced maternal age) multigravida 35+ April 04, 2025 10:04am Choroid plexus cyst April 04, 2025 10:04 am GBS (group B streptococcus) UTI complica ting April 04, 2025 10:04am History of infertility April 04, 2025 10 :04am Obesity affecting April 04 10:04am April 04, 2025 10:04 am Rh negative status during April 04, 2025 10:04am Supervision of high-risk March 212024 10:04am AMA (advanced maternal age) multigravida 35+ April 18, 2025 9:56am Choroid plexus cyst April 18, 2025 9:56a m GBS (group B streptococcus) UTI complica ting April 18, 2025 9:56am History of infertility April 18, 2025 9: 56am Obesity affecting April 18 9:56am April 18, 2025 9:56a m Rh negative status during April 18, 2025 9:56am Supervision of high-risk March [id number] 9:56am Chief Complaint Admit Date 20 wk ob December 27, 2024 9 :58am 24 wk ob January 24, 2025 9:53 am 28 wk ob/glucose February 21, 2025 2:40 pm 30 wk ob March 07, 2025 9:4 9am 32 wk ob March 21, 2025 9:52am LOWER March 29, 2025 11:57a m 34 wk ob April 04, 2025 10:04 am 36 WEEK, GROWTH April 17, 2025 3:1 8pm 36 wk ob April 18, 2025 9:56a m 37 wk ob April 26, 2025 10:20 am Reason for Visit Admit Date AMA (advanced maternal age) multigravida 35+ December 27, 2024 9:58am GBS (group B streptococcus) UTI complica ting December 27, 2024 9:58am History of infertility December 27 9:58am Obesity affecting December 9:58am December 27, 2024 9 :58am Rh negative status during Febr [id number] 9:58am Supervision of high-risk Febru [email or web address] 9:58am Choroid plexus cyst of fetus December 9:58am AMA (advanced maternal age) multigravida 35+ January 24, 2025 9:53am Choroid plexus cyst January 24, 2025 9:53 am GBS (group B streptococcus) UTI complica ting January 24, 2025 9:53am History of infertility January 24, 2025 9 :53am Obesity affecting January 24, 9:53am January 24, 2025 9:53 am Rh negative status during Drew 2024 9:53am Supervision of high-risk January 24, 2025 9:53am AMA (advanced maternal age) multigravida 35+ February 21, 2025 2:40pm Choroid plexus cyst February 21, 2025 2:40 pm GBS (group B streptococcus) UTI complica ting February 21, 2025 2:40pm History of infertility February 21, 2025 2 :40pm Obesity affecting February 21, 2:40pm February 21, 2025 2:40 pm Rh negative status during Apri l 2024 2:40pm Supervision of high-risk February 21, 2025 2:40pm AMA (advanced maternal age) multigravida 35+ March 07, 2025 9:49am Choroid plexus cyst March 07, 2025 9:4 9am GBS (group B streptococcus) UTI complica ting March 07, 2025 9:49am History of infertility March 07, 2025 9:49am Obesity affecting March 07, 2025 9:49am March 07, 2025 9:4 9am Rh negative status during Apri l 2024 9:49am Supervision of high-risk March 07, 2025 9:49am AMA (advanced maternal age) multigravida 35+ March 21, 2025 9:52am Choroid plexus cyst March 21, 2025 9:52am GBS (group B streptococcus) UTI complica ting March 21, 2025 9:52am History of infertility March 21, 2025 9:5 2am Obesity affecting March 21 9:52am March 21, 2025 9:52am Rh negative status during March 21, 2025 9:52am Supervision of high-risk March [id number] 9:52am AMA (advanced maternal age) multigravida 35+ April 04, 2025 10:04am Choroid plexus cyst April 04, 2025 10:04 am GBS (group B streptococcus) UTI complica ting April 04, 2025 10:04am History of infertility April 04, 2025 10 :04am Obesity affecting April 04 10:04am April 04, 2025 10:04 am Rh negative status during April 04, 2025 10:04am Supervision of high-risk March [id number] 10:04am AMA (advanced maternal age) multigravida 35+ April 18, 2025 9:56am Choroid plexus cyst April 18, 2025 9:56a m GBS (group B streptococcus) UTI complica ting April 18, 2025 9:56am History of infertility April 18, 2025 9: 56am Obesity affecting April 18 9:56am April 18, 2025 9:56a m Rh negative status during April 18, 2025 9:56am Supervision of high-risk March [id number] 9:56am AMA (advanced maternal age) multigravida 35+ April 26, 2025 10:20am Choroid plexus cyst April 26, 2025 10:20 am GBS (group B streptococcus) UTI complica ting April 26, 2025 10:20am History of infertility April 26, 2025 10 :20am Obesity affecting April 26 10:20am April 26, 2025 10:20 am Rh negative status during April 26, 2025 10:20am Supervision of high-risk April 26, 2025 10:20am Chief Complaint Admit Date 24 wk ob January 24, 2025 9:53 am 28 wk ob/glucose February 21, 2025 2:40 pm 30 wk ob March 07, 2025 9:4 9am 32 wk ob March 21, 2025 9:52am LOWER March 29, 2025 11:57a m 34 wk ob April 04, 2025 10:04 am 36 WEEK, GROWTH April 17, 2025 3:1 8pm 36 wk ob April 18, 2025 9:56a m 37 wk ob April 26, 2025 10:20 am 38 wk ob May 02, 2025 9:46 am Reason for Visit Admit Date AMA (advanced maternal age) multigravida 35+ January 24, 2025 9:53am Choroid plexus cyst January 24, 2025 9:53 am GBS (group B streptococcus) UTI complica ting January 24, 2025 9:53am History of infertility January 24, 2025 9 :53am Obesity affecting January 24, 9:53am January 24, 2025 9:53 am Rh negative status during Drew 2024 9:53am Supervision of high-risk January 24, 2025 9:53am AMA (advanced maternal age) multigravida 35+ February 21, 2025 2:40pm Choroid plexus cyst February 21, 2025 2:40 pm GBS (group B streptococcus) UTI complica ting February 21, 2025 2:40pm History of infertility February 21, 2025 2 :40pm Obesity affecting February 21, 025 2:40pm February 21, 2025 2:40 pm Rh negative status during Apri l 2024 2:40pm Supervision of high-risk February 21, 2025 2:40pm AMA (advanced maternal age) multigravida 35+ March 07, 2025 9:49am Choroid plexus cyst March 07, 2025 9:4 9am GBS (group B streptococcus) UTI complica ting March 07, 2025 9:49am History of infertility March 07, 2025 9:49am Obesity affecting March 07, 2025 9:49am March 07, 2025 9:4 9am Rh negative status during Apri l 2024 9:49am Supervision of high-risk March 07, 2025 9:49am AMA (advanced maternal age) multigravida 35+ March 21, 2025 9:52am Choroid plexus cyst March 21, 2025 9:52am GBS (group B streptococcus) UTI complica ting March 21, 2025 9:52am History of infertility March 21, 2025 9:5 2am Obesity affecting March 21 9:52am March 21, 2025 9:52am Rh negative status during March 21, 2025 9:52am Supervision of high-risk March [id number] 9:52am AMA (advanced maternal age) multigravida 35+ April 04, 2025 10:04am Choroid plexus cyst April 04, 2025 10:04 am GBS (group B streptococcus) UTI complica ting April 04, 2025 10:04am History of infertility April 04, 2025 10 :04am Obesity affecting April 04 10:04am April 04, 2025 10:04 am Rh negative status during April 04, 2025 10:04am Supervision of high-risk March [id number] 10:04am AMA (advanced maternal age) multigravida 35+ April 18, 2025 9:56am Choroid plexus cyst April 18, 2025 9:56a m GBS (group B streptococcus) UTI complica ting April 18, 2025 9:56am History of infertility April 18, 2025 9: 56am Obesity affecting April 18 9:56am April 18, 2025 9:56a m Rh negative status during April 18, 2025 9:56am Supervision of high-risk March [id number] 9:56am AMA (advanced maternal age) multigravida 35+ April 26, 2025 10:20am Choroid plexus cyst April 26, 2025 10:20 am GBS (group B streptococcus) UTI complica ting April 26, 2025 10:20am History of infertility April 26, 2025 10 :20am Obesity affecting April 26 10:20am April 26, 2025 10:20 am Rh negative status during April 26, 2025 10:20am Supervision of high-risk April 26, 2025 10:20am AMA (advanced maternal age) multigravida 35+ May 02, 2025 9:46am Choroid plexus cyst May 02, 2025 9:46 am GBS (group B streptococcus) UTI complica ting May 02, 2025 9:46am History of infertility May 02, 2025 9 :46am Obesity affecting May 02, 9:46am May 02, 2025 9:46 am Rh negative status during May 02, 2025 9:46am Supervision of high-risk May 02, 2025 9:46am Chief Complaint Admit Date 24 wk ob January 24, 2025 9:53 am 28 wk ob/glucose February 21, 2025 2:40 pm 30 wk ob March 07, 2025 9:4 9am 32 wk ob March 21, 2025 9:52am LOWER March 29, 2025 11:57a m 34 wk ob April 04, 2025 10:04 am 36 WEEK, GROWTH April 17, 2025 3:1 8pm 36 wk ob April 18, 2025 9:56a m 37 wk ob April 26, 2025 10:20 am 38 wk ob May 02, 2025 9:46 am 39 wk ob May 09, 2025 9:46 am Reason for Visit Admit Date AMA (advanced maternal age) multigravida 35+ January 24, 2025 9:53am Choroid plexus cyst January 24, 2025 9:53 am GBS (group B streptococcus) UTI complica ting January 24, 2025 9:53am History of infertility January 24, 2025 9 :53am Obesity affecting January 24, 025 9:53am January 24, 2025 9:53 am Rh negative status during Drew 2024 9:53am Supervision of high-risk January 24, 2025 9:53am AMA (advanced maternal age) multigravida 35+ February 21, 2025 2:40pm Choroid plexus cyst February 21, 2025 2:40 pm GBS (group B streptococcus) UTI complica ting February 21, 2025 2:40pm History of infertility February 21, 2025 2 :40pm Obesity affecting February 21, 025 2:40pm February 21, 2025 2:40 pm Rh negative status during Apri l 2024 2:40pm Supervision of high-risk February 21, 2025 2:40pm AMA (advanced maternal age) multigravida 35+ March 07, 2025 9:49am Choroid plexus cyst March 07, 2025 9:4 9am GBS (group B streptococcus) UTI complica ting March 07, 2025 9:49am History of infertility March 07, 2025 9:49am Obesity affecting March 07, 2025 9:49am March 07, 2025 9:4 9am Rh negative status during Apri l 2024 9:49am Supervision of high-risk March 07, 2025 9:49am AMA (advanced maternal age) multigravida 35+ March 21, 2025 9:52am Choroid plexus cyst March 21, 2025 9:52am GBS (group B streptococcus) UTI complica ting March 21, 2025 9:52am History of infertility March 21, 2025 9:5 2am Obesity affecting March 21 9:52am March 21, 2025 9:52am Rh negative status during March 21, 2025 9:52am Supervision of high-risk March [id number] 9:52am AMA (advanced maternal age) multigravida 35+ April 04, 2025 10:04am Choroid plexus cyst April 04, 2025 10:04 am GBS (group B streptococcus) UTI complica ting April 04, 2025 10:04am History of infertility April 04, 2025 10 :04am Obesity affecting April 04 10:04am April 04, 2025 10:04 am Rh negative status during April 04, 2025 10:04am Supervision of high-risk March [id number] 10:04am AMA (advanced maternal age) multigravida 35+ April 18, 2025 9:56am Choroid plexus cyst April 18, 2025 9:56a m GBS (group B streptococcus) UTI complica ting April 18, 2025 9:56am History of infertility April 18, 2025 9: 56am Obesity affecting April 18 9:56am April 18, 2025 9:56a m Rh negative status during April 18, 2025 9:56am Supervision of high-risk March [id number] 9:56am AMA (advanced maternal age) multigravida 35+ April 26, 2025 10:20am Choroid plexus cyst April 26, 2025 10:20 am GBS (group B streptococcus) UTI complica ting April 26, 2025 10:20am History of infertility April 26, 2025 10 :20am Obesity affecting April 26 10:20am April 26, 2025 10:20 am Rh negative status during April 26, 2025 10:20am Supervision of high-risk April 26, 2025 10:20am AMA (advanced maternal age) multigravida 35+ May 02, 2025 9:46am Choroid plexus cyst May 02, 2025 9:46 am GBS (group B streptococcus) UTI complica ting May 02, 2025 9:46am History of infertility May 02, 2025 9 :46am Obesity affecting May 02 9:46am May 02, 2025 9:46 am Rh negative status during May 02, 2025 9:46am Supervision of high-risk May 02, 2025 9:46am AMA (advanced maternal age) multigravida 35+ May 09, 2025 9:46am Choroid plexus cyst May 09, 2025 9:46 am GBS (group B streptococcus) UTI complica ting May 09, 2025 9:46am History of infertility May 09, 2025 9 :46am Obesity affecting May 09 9:46am May 09, 2025 9:46 am Rh negative status during May 09, 2025 9:46am Supervision of high-risk May 09, 2025 9:46am Advance Directives No Advanced Directives Records Found Advance Directive Response Recorded Date/ Time Living Will No September 16 9:00am Power of Deputy Probation Officer No September 16, 2022 9:00am Advance Directive Response Recorded Date/ Time Living Will No September 16 9:00am Do you have a Healthcare Power of Deputy Probation Officer? No September 16, 2022 9:00am Advance Directive Response Recorded Date/ Time Do you have a Healthcare Power of Deputy Probation Officer? No March 29, 2025 12:38pm Summary Purpose Family History No Family History Records Found Relationship Condition Age at Onset Recorded Date/T myke mother Endometriosis Unknown Lupus Unknown Additional Source Comments Goals (unrecognized section and content) Goals may be documented in a n alternate sectionGoals may be documented in an alternate sectionGoals may be documented in an alternate sectionGoals may be documented in an alternate sectionGoals may be documented in an alternate sectionGoals may be documented in an alternate sectionGoals may be documented in an alternate sectionGoals may be documented in an alternate sectionGoals may be documented in an alternate sectionGoals may be documented in an alternate sectionGoals may be documented in an alternate section INFORMATION SOURCE (unrecogn ized section and content) DATE CREATED AUTHOR 01/24/2025 [facility] DATE CREATED AUTHOR AUTHOR'S ORGANIZ ATION 05/11/2025 [facility] Care Teams (unrecognized sec tion and content) Team Status: Active Member Role Status Dates No Primary Care Physician Primary Care Provider Active Team Status: Inactive Member Role Status Dates No Primary Care Physician Primary Care Provider Active Start: October 31, 2024 End: October 31, 2024 No Primary Care Physician Referring Provider Active Start: October 31, 2024 End: October 31, 2024 Dr. Aarti Escalante , DO Attending Provider Activ e Start: October 31, 2024 End: October 31, 2024 Team Status: Inactive Member Role Status Dates No Primary Care Physician Primary Care Provider Active Start: November 29, 2024 End: November 29, 2024 No Primary Care Physician Referring Provider Active Start: November 29, 2024 End: November 29, 2024 Marielos Rock MEDICAL RECEPTIONIST BILLER, MEDICAL RECEPTIONIST BILLER-C Attending Provider Active Start: November 29, 2024 End: November 29, 2024 Team Status: Inactive Member Role Status Dates No Primary Care Physician Primary Care Provider Active Start: November 29, 2024 End: November 29, 2024 Marielos Rock MEDICAL RECEPTIONIST BILLER, MEDICAL RECEPTIONIST BILLER-C Attending Provider Active Start: November 29, 2024 End: November 29, 2024 Marielos Rock MEDICAL RECEPTIONIST BILLER, MEDICAL RECEPTIONIST BILLER-C Referring Provider Active Start: November 29, 2024 End: November 29, 2024 Team Status: Inactive Member Role Status Dates No Primary Care Physician Primary Care Provider Active Start: December 27, 2024 End: December 27, 2024 No Primary Care Physician Referring Provider Active Start: December 27, 2024 End: December 27, 2024 Dr. Aarti Escalante DO Attending Provider Activ e Start: December 27, 2024 End: December 27, 2024 Team Status: Inactive Member Role Status Dates No Primary Care Physician Primary Care Provider Active Start: January 24, 2025 End: January 24, 2025 No Primary Care Physician Referring Provider Active Start: January 24, 2025 End: January 24, 2025 Dr. Ayaka Lozano MD Attending Provider Active Start: January 24, 2025 End: January 24, 2025 Team Status: Inactive Member Role Status Dates No Primary Care Physician Primary Care Provider Active Start: February 21, 2025 End: February 21, 2025 No Primary Care Physician Referring Provider Active Start: February 21, 2025 End: February 21, 2025 Dr. Aarti Escalante DO Attending Provider Activ e Start: February 21, 2025 End: February 21, 2025 Team Status: Inactive Member Role Status Dates No Primary Care Physician Primary Care Provider Active Start: February 21, 2025 End: February 21, 2025 Niya Alicea CNM Attending Provider Active S tart: February 21, 2025 End: February 21, 2025 Niya Alicea CNM Referring Provider Active S tart: February 21, 2025 End: February 21, 2025 Team Status: Inactive Member Role Status Dates No Primary Care Physician Primary Care Provider Active Start: March 07, 2025 End: March 07, 2025 No Primary Care Physician Referring Provider Active Start: March 07, 2025 End: March 07, 2025 Dr. Aarti Escalante , DO Attending Provider Activ e Start: March 07, 2025 End: March 07, 2025 Team Status: Inactive Member Role Status Dates No Primary Care Physician Primary Care Provider Active Start: March 21, 2025 End: March 21, 2025 No Primary Care Physician Referring Provider Active Start: March 21, 2025 End: March 21, 2025 Niya Alicea CNM Attending Provider Active S tart: March 21, 2025 End: March 21, 2025 Team Status: Inactive Member Role Status Dates No Primary Care Physician Primary Care Provider Active Start: March 29, 2025 End: March 29, 2025 Dr. Hector Abrams , Emergency Provider Active Start: March 29, 2025 End: March 29, 2025 Team Status: Inactive Member Role Status Dates No Primary Care Physician Primary Care Provider Active Start: March 29, 2025 End: March 29, 2025 Dr. Hector Abrams , Attending Provider Active Start: March 29, 2025 End: March 29, 2025 Dr. Hector Abrams , Emergency Provider Active Start: March 29, 2025 End: March 29, 2025 Team Status: Inactive Member Role Status Dates No Primary Care Physician Primary Care Provider Active Start: April 04, 2025 End: April 04, 2025 No Primary Care Physician Referring Provider Active Start: April 04, 2025 End: April 04, 2025 Dr. Ayaka Lozano MD Attending Provider Active Start: April 04, 2025 End: April 04, 2025 Team Status: Active Member Role Status Dates No Primary Care Physician Primary Care Provider Active Start: April 17, 2025 Dr. Ayaka Lozano MD Attending Provider Active Start: April 17, 2025 Dr. Ayaka Lozano MD Referring Provider Active Start: April 17, 2025 Team Status: Inactive Member Role Status Dates No Primary Care Physician Primary Care Provider Active Start: April 18, 2025 End: April 18, 2025 No Primary Care Physician Referring Provider Active Start: April 18, 2025 End: April 18, 2025 Niya Alicea CNM Attending Provider Active S tart: April 18, 2025 End: April 18, 2025 Team Status: Active Member Role Status Dates No Primary Care Physician Primary Care Provider Active Start: April 18, 2025 Niya Alicea CNM Attending Provider Active S tart: April 18, 2025 Niya Alicea CNM Referring Provider Active S tart: April 18, 2025 Team Status: Inactive Member Role Status Dates No Primary Care Physician Primary Care Provider Active Start: April 17, 2025 End: April 17, 2025 Dr. Ayaka Lozano MD Attending Provider Active Start: April 17, 2025 End: April 17, 2025 Dr. Ayaka Lozano MD Referring Provider Active Start: April 17, 2025 End: April 17, 2025 Team Status: Inactive Member Role Status Dates No Primary Care Physician Primary Care Provider Active Start: April 18, 2025 End: April 18, 2025 Niya Alicea CNM Attending Provider Active S tart: April 18, 2025 End: April 18, 2025 Niya Alicea CNM Referring Provider Active S tart: April 18, 2025 End: April 18, 2025 Team Status: Inactive Member Role Status Dates No Primary Care Physician Primary Care Provider Active Start: April 26, 2025 End: April 26, 2025 No Primary Care Physician Referring Provider Active Start: April 26, 2025 End: April 26, 2025 Meryl Smith CNM Attending Provider Active Start: April 26, 2025 End: April 26, 2025 Team Status: Inactive Member Role Status Dates No Primary Care Physician Primary Care Provider Active Start: May 02, 2025 End: May 02, 2025 No Primary Care Physician Referring Provider Active Start: May 02, 2025 End: May 02, 2025 Niya Alicea CNM Attending Provider Active S tart: May 02, 2025 End: May 02, 2025 Team Status: Inactive Member Role Status Dates No Primary Care Physician Primary Care Provider Active Start: May 09, 2025 End: May 09, 2025 No Primary Care Physician Referring Provider Active Start: May 09, 2025 End: May 09, 2025 Dr. Aarti Escalante DO Attending Provider Activ e Start: May 09, 2025 End: May 09, 2025 FOR RECORDS PERTAINING TO PATIENTS WHO ARE OR HAVE BEEN ENROLLED IN A CHEMICAL DEPENDENCY/SUBSTANCEABUSE PROGRAM, SOME INFORMATION MAY BE OMITTED. This clinical summary was aggregated from multiple sources. Caution should be exercised in using it in the provision of clinical care. This summary normalizes information from multiple sources, and as a consequence, information in this document may materially change the coding, format and clinical context of patient data. In addition, data may be omitted in some cases. CLINICAL DECISIONS SHOULD BE BASED ON THE PRIMARY CLINICAL RECORDS. [facility] [employer] [facility]. provides no warranty or guarantee of the accuracy or completeness of information in this document.
[2025-05-14] VITALS (42 sets, daily range): BP systolic 98–162; BP diastolic 54–85; PULSE 77–129; RESP 13–16; TEMP 36.5–37.5; O2SAT 88–100
[2025-05-14] MEDS: Oxytocin 15 Units/NS 250ml 15 UNITS/250 ML IV.SOLN 2 UNITS IV (04:15)
[2025-05-14] MEDS: Clindamycin 900 MG/50 ML BAG 75 MG IV ×2 (06:05→14:30)
[2025-05-14] MEDS: Lactated Ringers 1,000 ML 150 ML IV ×2 (08:00→14:30)
--- NOTE | 2025-05-14 08:24 | PN.OBGYN_ITS ---
Subjective Subjective contractions getting more uncomfortable Objective Data Objective Data Vital Signs: Vital Signs Temp Pulse Resp BP Pulse Ox 97.9 F 101 H 16 116/68 98 05/14/25 03:36 05/14/25 08:20 05/14/25 03:36 05/14/25 08:20 05/14/25 08:19 Weight: 195 lb Body Mass Index (BMI) 38.0 Intake & Output: Intake and Output for Last 24 Hours 05/12/25 05/13/25 05/14/25 23:59 23:59 23:59 Intake Total 553.67 / 553.67 62.13 / 62.13 Output Total 500 / 500 900 / 900 Balance 53.67 / 53.67 -837.87 / -837.87 Lab / Micro Data 05/13/25 20:00 Labs: Laboratory Results - last 24 hr 05/13/25 20:00: WBC 10.7, RBC 4.42, Hgb 12.6, Hct 36.9 L, MCV 83.5, MCH 28.5, MCHC 34.1, RDW Std Deviation 43.0, RDW Coeff of Roque 14.2, Plt Count 339, MPV 10.5, Immature Gran % (Auto) 0.900, Neut % (Auto) 69.4, Lymph % (Auto) 20.4, Guthrie % (Auto) 8.0, Eos % (Auto) 0.8, Baso % (Auto) 0.5, Absolute Neuts (auto) 7.4, Absolute Lymphs (auto) 2.19, Nucleated RBC % 0, Syphilis Total Ab Nonreactive, Blood Type A NEGATIVE, Antibody Screen NEGATIVE NST FHR Rate Baby A Baseline: 130 Variability:: Moderate Accelerations:: 15 x 15 Decelerations:: None and Late (questionable late x1, recovered without intervention. 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 desires unmedicated labor, support being provided (2) GBS (group B streptococcus) UTI complicating : QUALIFIERS: Trimester: second trimester Qualified Code(s): O23.42 - Unspecified infection of urinary tract in , second trimester; B95.1 - Streptococcus, group B, as the cause of diseases classified elsewhere COMMENT: not high enough to treat. treat in labor -PCN allergic- plan for Clindamycin (tolerates well) (3) Rh negative status during : QUALIFIERS: Trimester: second trimester Qualified Code(s): O 26.892 - Other specified related conditions, second trimester; Z67.91 - Unspecified blood type, Rh negative COMMENT: A-: 11/29/24: spotting, rhogam given. Rhogam given on 02/21/25 (4) Obesity affecting : QUALIFIERS: Trimester: second trimester Obesity type affecting : unspecified obesity Qualified Code(s): O99.212 - Obesity complicating , second trimester COMMENT: BMI 30 - HgA1C ordered with NOB labs (5) AMA (advanced maternal age) multigravida 35+: QUALIFIERS: Trimester: second trimester Qualified Code(s): O 09.522 - Supervision of elderly multigravida, second trimester COMMENT: growth US 36 weeks deliveyr by 40 (6) Supervision of high-risk : QUALIFIERS: Trimester: second trimester Qualified Code(s): O09.92 - Supervision of high risk , unspecified, second trimester COMMENT: PRR, , JUAN 05/15/25, boy PC: Tisha, : [place] (7) : QUALIFIERS: Weeks of gestation: 39 weeks Qualified Code(s): Z 3A.39 - 39 weeks gestation of COMMENT: Discussed genetic/carrier testing - undecided, nl anatomy(choroid plexus cyst noted. Offered NIPT again) PLAN: Plan current tracing: overall reassuring, maternal HR being picked up when in 90s as noted by pulse ox. FHT: Moderate variability reactive no decelerations category I tracing [place]: q3 Contractions reviewed tracing abnormalities since last note: A/P: reposition frequently AROM prn pit per protocol recheck cervical exam q2-4hours
[2025-05-14] MEDS: Lactated Ringers 1,000 ML 999 ML IV (11:00)
[2025-05-14] MEDS: fentaNYL-bupivacaine (epidural) 100 ML BAG EPIDURAL (13:09)
[2025-05-14] MEDS: Amnioinfusion- 0.9% NS 1,000 ML IV.SOLN. 1000 ML INTRA-UTER (14:40)
[2025-05-14] MEDS: Azithromycin 500 MG in 0.9% Normal Saline (250mL Bag) 250 ML 255 MG IV (15:08)
[2025-05-14] MEDS: TRANEXAMIC ACID 1,000 MG in 0.9% Normal Saline (100mL Bag) 100 ML 440 MG IV (15:18)
--- NOTE | 2025-05-14 15:37 | EX.PCM.OBRPT ---
Assessment & Plan (1) Choroid plexus cyst: COMMENT: follow up scan at 28 weeks declines NIPT (2) GBS (group B streptococcus) UTI complicating : QUALIFIERS: Trimester: second trimester Qualified Code(s): O23.42 - Unspecified infection of urinary tract in , second trimester; B95.1 - Streptococcus, group B, as the cause of diseases classified elsewhere COMMENT: not high enough to treat. treat in labor -PCN allergic- plan for Clindamycin (tolerates well) (3) Rh negative status during : QUALIFIERS: Trimester: second trimester Qualified Code(s): O26.892 - Other specified related conditions, second trimester; Z67.91 - Unspecified blood type, Rh negative COMMENT: A-: 11/29/24: spotting, rhogam given. Rhogam given on 02/21/25 (4) Obesity affecting : QUALIFIERS: Obesity type affecting : unspecified obesity Trimester: second trimester Qualified Code(s): O99.212 - Obesity complicating , second trimester COMMENT: BMI 30 - HgA1C ordered with NOB labs (5) AMA (advanced maternal age) multigravida 35+: QUALIFIERS: Trimester: second trimester Qualified Code(s): O09.522 - Supervision of elderly multigravida, second trimester COMMENT: growth US 36 weeks deliveyr by 40 (6) Supervision of high-risk : QUALIFIERS: Trimester: second trimester Qualified Code(s): O09.92 - Supervision of high risk , unspecified, second trimester COMMENT: PRR, , JUAN 05/15/25, boy PC: Tisha, : Tico (7) : QUALIFIERS: Weeks of gestation: 39 weeks Qualified Code(s): Z3A.39 - 39 weeks gestation of COMMENT: Discussed genetic/carrier testing - undecided, nl anatomy(choroid plexus cyst noted. Offered NIPT again) (8) History of infertility: COMMENT: Unknown factor. Failed 6 IUI per [facility]. Daughter/spontaneous . THIS also spontaneous/surprise (9) intolerance to labor, delivered, current hospitalization: Maternal Data Information JUAN Calculator Estimated Delivery Date Method Current WG Current Estimate 05/15/25 LMP (Uncertain) 40w 2d Other Estimates 05/13/25 Ultrasound #1 40w 4d Final JUAN: 05/15/25 Final JUAN Source: LMP Gestational age: 39 weeks 6 dats Doctor Who Attended Delivery: Karen Lewis Operative Report (OB) Details Procedure Type: low transverse Date of Procedure: 05/14/25 Procedure Start Time: 15:08 Procedure Stop Time: 15:45 Pre-Operative Diagnosis: Failed vaccuum extraction and Other ( intolerance to labor ) Other Pre-Operative diagnosis: none Post-Operative Diagnosis: Same as Pre-operative diagnosis Classification: Stat Type of Anesthesia: Epidural Antibiotic Given: Clindamycin 600mg IV x1 and Gentamicin 1.5mg/kg IV x1 and Zithromax 500 mg/5 mL X1 Drain: [place] to straight drain Estimated Blood Loss: 1000cc Findings Description of surgery: A vacuum extraction was first attempted prior to presenting to the operating room The station was noted to be +1 and deep variable decelerations were present despite amnioinfusion. After the first 2 contractions with the vaccum (3 pulls) the head did not descend. The head was then turned and 3 more attempts were made with the vaccuum, however a good suction was never achieved due to a large amount of hair and redundant vaginal tissue. At this point the head had turned back to OP and the umbilical cord was palpated around the infant's neck. The heart rate was found in to be 55 and not improving and the decision was made to proceed with a stat section . The patient was brought to the operating room where epidurla anesthesia was found to be adequate. She was prepped and draped in the normal sterile fashion and was placed in a dorsal supine position with a leftward tilt. Pfannenstiel skin incision was made with a scalpel and carried through to the underlying layers. The fascia was nicked in the midline and extended laterally manually The anterior aspect of the fascia was disected manually. The rectus muscles were in the midline. Peritoneum was entered sharply. The uterus was identified and a bladder blade was inserted into the abdomen. A transverse incision was made with a scalpel and extended laterally manually. The infant's head was grasped with the help of my social human services assistants and fundal pressure the was delivered through the uterine incision without difficulty. 3 nuchal cords and a body cord were reduced. The mouth and nares were bulb suctioned. After a 30 second delay the cord was clamped and cut. The infant was handed off to the awaiting box sealing machine feeder for routine assessment. Placenta was delivered manually without difficulty. The uterus was exteriorized and cleared of all clots and debris. Incision was closed with an 0 Vicryl suture in a running locked fashion. Second layer of 1-0 monocryl suture was used in imbricating manner to create excellent closure and hemostasis. The uterus was returned to the abdomen. The gutters were cleared of all clots and debris. The peritoneum was closed in a pursestring pattern using a 3-0 Vicryl suture. The fascia was closed with an pds stratafix suture. Subcutaneous tissue layer was closed using a plain gut suture. The skin was closed with a 4-0 Monocryl subcuticular stitch. The skin was also sealed with surgical glue. The patient tolerated the procedure well sponge lap and needle counts were correct at each tissue closure plane and the patient is now being brought to the recovery room in stable condition Surgical findings: triple nuchal cord and body cord, viable male infant Justyn scores 7/9 Presentation: Vertex Amniotic Membrane Rupture Type: Artificial Amniotic Fluid Description: Clear Placental Delivery Description: Manual Removal Placenta Disposition: [facility] Specimen collected: No Cord Vessel Description: 3 Vessels Cord Entanglement: Other (around neck x 3 loose ) Nuchal Cord Compression: Without compression Cord Gases: VBG Infant A gender: Male (1 minute): 7 (5 minute): 9 Delayed Cord Clamping: Yes Head Of Store Operations pick up man: Yes Strike Operations Officer: Meryl Smith CNM Tasks completed by assistant professor of life sciences: Closing and Retracting Additional social human services assistants?: No Complications Complications: No Admit VTE Documentation VTE Present on Admission: No VTE Mechan Device Prophylaxis: SCD's VTE Pharm Prophylaxis Ordered: Yes Multi Select Codes Urinary/Genital Urinary/Genital CPT Codes: 08785 Delivery [facility]
[2025-05-14] MEDS: Gentamicin IV 310 MG in Dextrose 5%-Water (50mL Bag) 50 ML 115.5 MG IVPB (15:45)
--- NOTE | 2025-05-14 16:06 | DCINST_ITS ---
Discharge Instructions Diet Discharge Diet: No restrictions DC O2, CPAP, BIPAP needs Home O2 Discharge instructions: No Dressing / Incision Discharge Activity: May Not Drive (for 2 weeks or while taking narcotic pain medications.), May Shower and May Take a Tub Bath (in 7 days.) May resume sexual activity in: 4-6 weeks Weight Bearing Status: Full weight bearing Lifting Restrictions: 20 pounds Dressing / Incision Call your doctor if your incision/area has: Continuous Slow Oozing, Sudden Increased Bleeding, Increased Pain/ Swelling, Increased Redness and Foul Smelling Discharge Call your doctor if you observe: Fever of 101 or Higher and Using more than 1 pad per hour Suture Line Care: Avoid Pulling/Pushing and Avoid Pinching/Bending Cleanse incision/area with: Soap & Water and Keep Dressing Clean & Dry Follow Up Care Please Follow Up With: Aarti Escalante DO When: Call [phone] to make an appointment for an incision check in 1-2 weeks. Test Results: Test results from this visit will be discussed in further detail at your follow- up appointment, if applicable. Discharge Plan Admission Admit Date/Time: 05/13/25 19:00 Primary Reason for Your Visit: section Attending Provider: Aarti Escalante Primary Care Provider: Care PhysicianMarlen Primary Discharge Orders/Prescriptions Prescriptions: New ibuprofen 800 mg tablet 800 mg PO Q8H PRN (Reason: pain) Qty: 30 0RF oxycodone-acetaminophen [Percocet] 5-325 mg tablet 1 tab PO Q4H PRN (Reason: pain) 7 Days Qty: 20 0RF No Action cholecalciferol (vitamin D3) 25 mcg (1,000 unit) capsule 25 mcg PO QDAY 1 mg Tablet 1 tab PO DAILY Referrals / Follow Up: Care Physician,Marlen Primary [Primary Care Provider] - Disposition Disposition (needs filled in before D/C Order can be placed): Home, Self Care
[2025-05-14] MEDS: Oxytocin 15 Units/NS 250ml 15 UNITS/250 ML IV.SOLN 83 UNITS IV (16:18)
[2025-05-14] MEDS: Ketorolac 30 MG/ML Syringe IV ×2 (17:00→23:42)
[2025-05-14 17:31] LABS: Absolute Lymphocyte Count 1.53 X10^3/uL (0.83-4.51); Absolute Neutrophil Count 20.9 X10^3/uL (2.0-7.7); Basophil# 0.08 X10^3/uL; Basophil% 0.3 % (0-1); Eosinophil# 0.02 X10^3/uL; Eosinophils% 0.1 % (0-5); Hemoglobin 11.8 g/dL (12.0-15.0); Lymphocyte # 1.53 X10^3/ul (0.83-4.51); Lymphocyte % 6.4 % (19-41); Mean Corp Hgb Conc 33.7 g/dL (32-36); Mean Corpuscular Hgb 29.1 pg (27.0-32.0); Mean Corpuscular Volume 86.4 fL (81-99); Monocyte% 5.4 % (0-10); NRBC Flagged by Analyzer 0 % (0-5); Neutrophil # 20.94 X10^3/uL (2.7-7.7); Neutrophil % 86.9 % (47-70); POSITIVE DIFFERENTIAL YES; Platelet Count 288 K/mm3 (150-450); RBC Distribution Width CV 14.4 % (11.6-14.6); RBC Distribution Width SD 45.4 fl (35.1-43.9); Red Blood Count 4.05 M/mm3 (4.2-5.4); White Blood Count 24.1 K/mm3 (4.4-11.0)
[2025-05-14 17:37] LABS: Differential Indicated SCAN CRITERIA MET
[2025-05-14] MEDS: Acetaminophen 500 MG Tablet 1000 MG PO (19:25)
[2025-05-14] MEDS: Lactated Ringers 1,000 ML 100 ML IV (19:28)
[2025-05-14 20:27] LABS: Differential Comment SCANNED
[2025-05-15] VITALS (8 sets, daily range): BP systolic 101–117; BP diastolic 58–78; PULSE 89–104; RESP 16–18; TEMP 36.3–37.1; O2SAT 98–100
[2025-05-15] MEDS: Ketorolac 30 MG/ML Syringe IV (06:31)
[2025-05-15 06:48] LABS: Hematocrit 25.9 % (37-47); Hemoglobin 9.1 g/dL (12.0-15.0); Mean Corp Hgb Conc 35.1 g/dL (32-36); Mean Corpuscular Volume 85.5 fL (81-99); Mean Platelet Vol. 9.9 fl (6.2-12.0); Platelet Count 193 K/mm3 (150-450); RBC Distribution Width CV 14.5 % (11.6-14.6); RBC Distribution Width SD 44.6 fl (35.1-43.9); Red Blood Count 3.03 M/mm3 (4.2-5.4); White Blood Count 19.3 K/mm3 (4.4-11.0)
--- NOTE | 2025-05-15 08:04 | PN.OBGYN_ITS ---
Subjective Subjective Patient is laying in bed comfortably without complaints. She states that she slept on an off during the night. Lochia is mild and pain is minimal. Objective Data Objective Data Vital Signs: Vital Signs Temp Pulse Resp BP Pulse Ox O2 Del Method 97.8 F 98 16 113/58 L 98 Room Air 05/15/25 07:51 05/15/25 07:51 05/15/25 07:51 05/15/25 07:51 05/15/25 07:51 05/15/25 07:51 Oxygen Delivery Method Room Air Weight: 195 lb Body Mass Index (BMI) 38.0 Intake & Output: Intake and Output for Last 24 Hours 05/13/25 05/14/25 05/15/25 23:59 23:59 23:59 Intake Total 553.67 / 553.67 4341.58 / 4341.58 1000 / 1000 Output Total 500 / 500 3500 / 3500 1200 / 1200 Balance 53.67 / 53.67 841.58 / 841.58 -200 / -200 Lab / Micro Data 05/15/25 06:40 Labs: Laboratory Results - last 24 hr 05/14/25 17:10: WBC 24.1 H, RBC 4.05 L, Hgb 11.8 L, Hct 35.0 L, MCV 86.4, MCH 29.1, MCHC 33.7, RDW Std Deviation 45.4 H, RDW Coeff of Roque 14.4, Plt Count 288, MPV 10.0, Immature Gran % (Auto) 0.900, Neut % (Auto) 86.9 H, Lymph % (Auto) 6.4 L, [place] % (Auto) 5.4, Eos % (Auto) 0.1, Baso % (Auto) 0.3, Absolute Neuts (auto) 20.9 H, Absolute Lymphs (auto) 1.53, Nucleated RBC % 0, Differential Comment SCANNED 05/15/25 06:40: WBC 19.3 H, RBC 3.03 L, Hgb 9.1 L, Hct 25.9 L, MCV 85.5, MCH 30.0, MCHC 35.1, RDW Std Deviation 44.6 H, RDW Coeff of Roque 14.5, Plt Count 193, MPV 9.9 ROS Constitutional Constitutional: Reports systems reviewed and no addt'l complaints, except as documented Cardiovascular Cardiovascular: Denies chest pain, dizziness, dyspnea or irregular heart rhythm Respiratory/Chest Respiratory/Chest: Denies cough, pain on inspiration or shortness of breath at rest Gastrointestinal Gastrointestinal: Denies abdominal pain, nausea or vomiting Genitourinary Genitourinary: Denies burning urination Musculoskeletal Musculoskeletal: Denies muscle cramps, muscle spasms or muscle weakness Neurologic Neurologic: Denies confusion, dizziness, headache(s) or lack of coordination Psychiatric Psychiatric: Denies anxiety, behavioral changes or depression Physical Exam HEENT normocephalic Resp normal respiratory effort and normal air movement GI soft to palpation, non-tender and non-distended GI Narrative: incision is clean, dry, intact Rectal Exam: other Other Details: Incision is clean, dry, and intact no CVA tenderness Narrative: foster catheter bag is clear. Extremity normal to inspection General Extremity: edema bilateral (trace ) Assessment & Plan (1) Status post section: COMMENT: stat section- JV baby boy javier (2) intolerance to labor, delivered, current hospitalization: (3) Choroid plexus cyst: COMMENT: follow up scan at 28 weeks declines NIPT (4) GBS (group B streptococcus) UTI complicating : QUALIFIERS: Trimester: second trimester Qualified Code(s): O23.42 - Unspecified infection of urinary tract in , second trimester; B95.1 - Streptococcus, group B, as the cause of diseases classified elsewhere COMMENT: not high enough to treat. treat in labor -PCN allergic- plan for Clindamycin (tolerates well) (5) Rh negative status during : QUALIFIERS: Trimester: second trimester Qualified Code(s): O 26.892 - Other specified related conditions, second trimester; Z67.91 - Unspecified blood type, Rh negative COMMENT: A-: 11/29/24: spotting, rhogam given. Rhogam given on 02/21/25 (6) Obesity affecting : QUALIFIERS: Trimester: second trimester Obesity type affecting : unspecified obesity Qualified Code(s): O99.212 - Obesity complicating , second trimester COMMENT: BMI 30 - HgA1C ordered with NOB labs (7) AMA (advanced maternal age) multigravida 35+: QUALIFIERS: Trimester: second trimester Qualified Code(s): O 09.522 - Supervision of elderly multigravida, second trimester COMMENT: growth US 36 weeks deliveyr by 40 (8) Supervision of high-risk : QUALIFIERS: Trimester: second trimester Qualified Code(s): O09.92 - Supervision of high risk , unspecified, second trimester COMMENT: PRR, , JUAN 05/15/25, boy PC: Tisha, : Tico (9) History of infertility: COMMENT: Unknown factor. Failed 6 IUI per [facility]. Daughter/spontaneous . THIS also spontaneous/surprise PLAN: Plan s/p LTCS PPD # 1 1. routine post care 2. breast feeding- support given 3. rh negative work up ordered 4. rubella immune 5. plan to remove foster this am 6. will discuss dc tomorrow.
[2025-05-15] MEDS: Acetaminophen 500 MG Tablet 1000 MG PO ×2 (12:24→18:34)
[2025-05-15] MEDS: 0.9% Saline Lock 10 ML Syringe IV (12:25)
[2025-05-15] MEDS: Senna/Docusate Sodium 1 Tablet PO (12:25)
[2025-05-15] MEDS: Ibuprofen 600 MG Tablet PO ×2 (12:54→18:34)
[2025-05-16] MEDS: Acetaminophen 500 MG Tablet 1000 MG PO ×2 (00:14→06:35)
[2025-05-16] MEDS: Ibuprofen 600 MG Tablet PO ×2 (00:15→06:35)
[2025-05-16 03:25] VITALS: BP 108/70; PULSE 76; RESP 16; TEMP 36.3; O2SAT 100
[2025-05-16] MEDS: Enoxaparin 40 MG/0.4 ML Syringe SC (03:25)
--- NOTE | 2025-05-16 07:47 | PN.OBGYN_ITS ---
Subjective Subjective Patient doing well without complaints. Tolerating PO. Ambulating and voiding without difficulty. Feeding well. Denies chest pain, shortness of breath, calf pain/swelling, fevers, chills, lightheadedness. Objective Data Objective Data Vital Signs: Vital Signs Temp Pulse Resp BP Pulse Ox O2 Del Method 97.3 F L 76 16 108/70 100 Room Air 05/16/25 03:25 05/16/25 03:25 05/16/25 03:25 05/16/25 03:25 05/16/25 03:05/16/25 03:25 Oxygen Delivery Method Room Air Weight: 195 lb Body Mass Index (BMI) 38.0 Intake & Output: Intake and Output for Last 24 Hours 05/14/25 05/15/25 05/16/25 23:59 23:59 23:59 Intake Total 4341.58 / 4341.58 1000 / 1000 Output Total 3500 / 3500 2300 / 2300 Balance 841.58 / 841.58 -1300 / -1300 Lab / Micro Data 05/15/25 06:40 Physical Exam Const alert and oriented x3 HEENT normocephalic Eyes PERRL Neck full ROM Resp normal respiratory effort GI soft to palpation GI Narrative: FF below U. Dressing dry and intact Palpation: tender other (appropriately) Assessment & Plan (1) Status post section: COMMENT: stat section- JV baby boy javier (2) intolerance to labor, delivered, current hospitalization: (3) GBS (group B streptococcus) UTI complicating : QUALIFIERS: Trimester: second trimester Qualified Code(s): O23.42 - Unspecified infection of urinary tract in , second trimester; B95.1 - Streptococcus, group B, as the cause of diseases classified elsewhere COMMENT: not high enough to treat. treat in labor -PCN allergic- plan for Clindamycin (tolerates well) (4) Rh negative status during : QUALIFIERS: Trimester: second trimester Qualified Code(s): O 26.892 - Other specified related conditions, second trimester; Z67.91 - Unspecified blood type, Rh negative COMMENT: A-: 11/29/24: spotting, rhogam given. Rhogam given on 02/21/25 (5) AMA (advanced maternal age) multigravida 35+: QUALIFIERS: Trimester: second trimester Qualified Code(s): O 09.522 - Supervision of elderly multigravida, second trimester COMMENT: growth US 36 weeks deliveyr by 40 PLAN: Plan s/p LTCS PPD # 2 1. routine post care 2. breast feeding- support given 3. rh negative 4. rubella immune 5. home today
[2025-05-16 08:18] VITALS: BP 104/63; PULSE 88; RESP 16; TEMP 36.5; O2SAT 99
--- NOTE | 2025-05-16 10:10 | CASEMGMT ---
Social Work Assessment Labor and Delivery Unit Patient Address: [address] [place] [address] Yony Daugherty [place] [id number] Date of Referral: 05/16/25 Time of Referral:? 931 Referred By: Dr. Escalante Date of Intervention: ??05/16/25 Time of Intervention:? 914 Reason for Referral:? anxiety, depression Sw completed chart review and acknowledges social work consult due to maternal mental health history. Sw presented to bedside and introduced self to mother of baby (MOB- Marta) and father of baby (FOB- Tico). Sw explained reason for sw involvement and completed psychosocial assessment. History obtained from: medical records, MOB and FOB Household composition: Currently residing in the family home is MARKO, FOMatthias, their 2 year old daughter- Tisha and baby when ready for discharge. Parents deny any housing concerns and report their home is safe and secure. Patient's parent/guardian status:? 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 They then moved to [place] and have been for 11 years. No concerns reported of domestic violence or intimate partner violence. This is second baby for parents together. Medical History: ?MARKO is 34 year old female who is 2, para 1- now 2 following labor and delivery of . MARKO received routine care during with [facility]. MARKO presented to hospital for induction of labor, and required emergency due to failure to descent. Baby was born on 05/[birth year]/25 at 39 weeks gestation. Baby boy, named Justyn Solo, was born weighing 7lb 10oz with apgars of 7 and 9 at one and five minutes of life, respectfully. MARKO is breast feeding and states that baby will be followed by Dr. Carrero for pediatrics. Educational Status:? MOB graduated from high school and FRANK has his GED. Neither parent attended college and denies problems with reading, learning or comprehension. 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 He is able to take one week off of work for paternity leave. Infant Supplies:?? All necessary baby supplies obtained, including: car seat, safe sleep space, clothes, diapers and wipes. Childcare/Caregiver(s):? MOB will be the primary caregiver to baby, along with FOB when he is not working. Transportation:?? Both parents have their drivers license and reliable means of transportation, no barriers. Programs/Agencies Involved: ???Parents are not connected to any communities that assist them financially at this time. Children Services/Legal Issues:??? No history of children services involvement, no issues or concerns warranting referral to be made at this time. Behavioral Health Issues: ??Mental Health History:?FRANK reports that he has depression. He states that he was diagnosed when he was a teenager. He was prescribed prozac but has not taken it now for almost 8 years. FRANK reports that he has never called off of work because he was depressed. FRANK denies having thoughts of harming himself, he does disclose that he did experience thoughts of self harm in his teenage years. FRANK states that his triggers as an adult are stress and feeling tired. FRANK states that he has some medical issues (sleep apnea) that he has to work through, and so when he is feeling depressed he sleeps. MOB states that she is able to see when FRANK is starting to feel down, and she will bring it to his attention and that usually helps him get out of his funk. MOB states that she never battled with anxiety or depression until she had her first baby. MOB states at that time she instantly felt like she was in a fog. MOB reports that she felt that way until her daughter was 6 months old. MOB states that she was not fully prepared for how her life would change when she had a baby. MOB states that her baby also did not sleep well and ended up having a milk allergy that was not diagnosed until she was 6 months old. MOB states that when her daughter stopped being so fussy then she started to feel better mentally. MOB states that she would cry a lot and would feel overwhelmed. Substance Use History: Parents deny substance use prior to and during . ?? Family History:??Parents deny family history of substance use or significant mental health history. ??? Drug Screens: ??No drug screens observed while completing chart review. Family/Social Stressors:? Parents deny any issues, concerns or stressors at this time. MARKO states that she has already talked to her OBGYN about her mental health, and she is prepared to start medication if she starts to feel anxious or depressed at all during this period. MOB states that she does not want to wait so long as she did before until she starts to ask for help. FOB states that this time their family is also in a better place financially. FOB states that he got a new job where his hours are different and they have insurance. FOB states that he is also able to take time off of work for a week following this delivery. Support Systems: MARKO reports that FRANK is her biggest support, along with paternal family, mostly her sister in law. Depression/Shaken Baby/Safe Sleeping:? Sw educated parents on signs and symptoms of baby blues and depression and anxiety. MOB states that she is familiar with what to be on the lookout for this time. FOB states that he is also mindful. MOB reports that she did not feel the best during her (physically). MOB states that since the baby has been born she feels like herself. She denies feeling down, sad, overwhelmed or anxious. MOB reports to feeling a whatley/ connection with baby. Sw educated parents on shaken baby prevention and ABCs of safe sleep, parents express understanding. ASSESSMENT:? MOB and baby admitted following labor and delivery. MOB with mental health history positive for depression. MOB states that her symptoms of PPD started right after her daughter was born and lasted roughly 6 months. MOB states that at that time there were several other factors that hopefully will not come into play this time. FOB states that he also feels more equipped to recognize when MOB is struggling. Parents were receptive to meeting with sw. They were talkative and engaging, conversation flowed naturally. MOB was observed laying comfortably in bed. FOB sitting close to MOB, and then got up and tended to when he started to fuss. FOB observed to hold and care for baby in loving and attentive manner. Parents have obtained all necessary baby supplies and have natural supports in place. Parents also have a plan moving forward with MOB's OBGYN regarding assessing her mental health in a couple of weeks to see how she is doing, and if warranted she is prepared to start medication if that is what is recommended by her physician. MOB states that she dose not have time, or the desire to experience this time what she did mentally after her daughter was born. Much support and active listening was provided. PLAN:? No other services requested or indicated. MOB and baby to be discharged when medically ready. Parents were provided literature regarding: signs and symptoms of baby blues and mood and anxiety disorders, Help Me Grow, shaken baby prevention, ABCs of safe sleep and a list of county resources that are available for them should any needs present themselves. Nisha Cano, COMMUNITY MARKETING COORDINATOR, FIRE CONTROL SYSTEM INSTALLER
== END 2025-05-16 11:35 | disposition home or self-care (01) | DRG 788 ==
PROVIDERS: Admitting Provider Obstetrics & Gynecology; Referring Provider Obstetrics & Gynecology; Visit Provider Obstetrics & Gynecology
DX: O35.03X0 Maternal care for (suspected) central nervous system malformation or damage in fetus, choroid plexus cysts, not applicable or unspecified (principal); E66.9 Obesity, unspecified; O99.214 Obesity complicating childbirth; O66.5 Attempted application of vacuum extractor and forceps; O69.81X0 Labor and delivery complicated by cord around neck, without compression, not applicable or unspecified; O76 Abnormality in fetal heart rate and rhythm complicating labor and delivery; Z3A.39 39 weeks gestation of pregnancy; O99.824 Streptococcus B carrier state complicating childbirth; Z37.0 Single live birth; Z79.899 Other long term (current) drug therapy
CPT/HCPCS: 59025; 59050; 85025; 85027; 86780; 86850; 86900; 86901; 99221; A4216; G0378; J2405